=== PATIENT | male | born 1980 | race Caucasian/White ===

== ENCOUNTER 2022-01-12 09:30 | Emergency (ER) | payer OTHER, SELFPAY ==
[2022-01-12 09:31] VITALS: BP 165/95; PULSE 87; RESP 16; TEMP 36.6; O2SAT 97
--- NOTE | 2022-01-12 10:23 | ED.WOUNDLAC ---
HPI - Wound/Laceration General Chief Complaint: Wound/Laceration Stated Complaint: bleeding wound to abd, on blood thinner Time Seen by Provider: 01/12/22 10:15 History of Present Illness HPI narrative: 41-year-old male presents the emergency room for evaluation of a bleeding wound to his right lower abdomen. Patient states the bleeding has been present since he woke up this morning around 7:00. Denies any injury or trauma. Patient states that he is on Coumadin for history of atrial fibrillation. Related Data Home Medications Medication Instructions Recorded Confirmed acetaminophen 500 mg capsule 500 mg PO Q6H PRN 09/24/19 08/10/21 ketoconazole 2 % topical cream 1 applic topical DAILY PRN 09/24/19 08/10/21 mupirocin 2 % topical ointment 1 applic topical BID PRN 09/24/19 08/10/21 oxygen-air delivery systems ##1 09/24/19 08/10/21 Allergies Allergy/AdvReac Type Severity Reaction Status Date / Time No Known Allergies Allergy Verified 08/10/21 14:30 Review of Systems Review of Systems: CONSTITUTIONAL: Denies fever, chills, or sweats. EYES: Denies visual changes, redness, or discharge. ENT: Denies rhinorrhea, congestion, sore throat, or otalgia. CARDIOVASCULAR: Denies chest pain, palpitations, or edema. RESPIRATORY: Denies cough or dyspnea. GASTROINTESTINAL: Denies abdominal pain, nausea, vomiting, or diarrhea. GENITOURINARY: Denies dysuria or hematuria. SKIN: Reports bleeding skin tear to right lower abdomen MUSCULOSKELETAL: Denies back pain, joint pain, or myalgia. NEUROLOGIC: Denies headache, numbness, dizziness, or weakness. PSYCHIATRIC: Denies anxiety or depression. [facility] Family History Family History Mother Patient's mother is in good health Sibling Patient's sister is in good health Father Family history of cardiovascular disease Family history of chronic obstructive pulmonary disease Hypertension Social History Social History Alcohol intake: current Exam Narrative: GENERAL: Well-appearing, well-nourished, and in no acute distress. HEAD: Normocephalic, atraumatic. EYES: PERRLA and EOMI. CHEST: Clear to auscultation. No respiratory distress. No wheezes rales or rhonchi HEART: Regular rate and rhythm. No murmur heard. Normal peripheral pulses. ABDOMEN: Soft, nontender, nondistended, normal active bowel sounds. EXTREMITIES: Normal range of motion. No edema. SKIN: X2 bleeding skin tears on right lower abdomen NEURO: No focal deficits. Alert and oriented x3. PSYCH: Normal mood and affect. Course Course Emergency Course: Surgicel applied to bleeding wound, hemostasis was achieved with direct pressure. Vital Signs Vital signs: Vital Signs Temperature 36.6 C 01/12/22 09:31 Pulse Rate 87 01/12/22 09:31 Respiratory Rate 16 01/12/22 09:31 Blood Pressure 165/95 H 01/12/22 09:31 Pulse Oximetry 97 01/12/22 09:31 Oxygen Delivery Room Air 01/12/22 09:31 Temperature 36.6 C 01/12/22 09:31 Pulse Rate 87 01/12/22 09:31 Respiratory Rate 16 01/12/22 09:31 Blood Pressure 165/95 H 01/12/22 09:31 Pulse Oximetry 97 01/12/22 09:31 Oxygen Delivery Room Air 01/12/22 09:31 MDM - Wound/Laceration Lab Data Labs: Lab Results 01/12/22 Range/Units 10:57 PT 39.5 H (11.1-14.7) Seconds INR 4.2 Discharge Plan Discharge Clinical Impression: Avulsion of skin Patient Disposition: Home, Self-Care Condition: Stable Instructions: Antibiotic Form, Skin Avulsion (ED) Additional Instructions: Keep bandage in place for the next 3 days. Return to your primary care physician is a bleeding continues Prescriptions: No Action ketoconazole 2 % cream 1 applic TOPICAL DAILY PRN mupirocin 2 % ointment 1 applic TOPICAL BID PRN acetaminophen 500 mg capsule 500 mg PO Q6H PRN (DME) oxygen-air delivery systems Device
[2022-01-12] MEDS: CELLULOSE OXIDIZED 2 x 3 INCH 1 PKT XX (10:35)
[2022-01-12 11:19] LABS: INR 4.2; Prothrombin Time 39.5 Seconds (11.1-14.7)
[2022-01-12 11:37] VITALS: BP 134/78; PULSE 85; RESP 22; O2SAT 95
== END 2022-01-12 11:38 | disposition home or self-care (01) ==
PROVIDERS: Emergency Provider Nurse Practitioner Family; PCP Family Medicine
DX: L98.8 Other specified disorders of the skin and subcutaneous tissue (principal); I48.91 Unspecified atrial fibrillation; Z79.01 Long term (current) use of anticoagulants
CPT/HCPCS: 36415; 85610; 99283

== ENCOUNTER 2022-03-16 10:21 | Outpatient (CLI) | payer OTHER, SELFPAY ==
[2022-03-16 18:57] LABS: Basophils Absolute Auto 0.1 K/mm3 (0.0-0.1); Basophils Percent Auto 0.6 % (0.2-1.2); Eosinophils Absolute Auto 0.3 K/mm3 (0-0.3); Eosinophils Percent Auto 3.6 % (0-4.4); Hematocrit 33.4 % (42.0-52.0); Hemoglobin 10.4 g/dL (14.0-18.0); Immature Granulocyte Absolute 0.02 K/mm3 (0.00-0.031); Immature Granulocyte Percent A 0.2 % (0-0.5); Lymphocytes Absolute Auto 2.14 K/mm3 (0.9-3.2); Lymphocytes Percent Auto 25.1 % (18.3-44.2); Mean Corpuscular HGB Conc 31.1 g/dl (32-36); Mean Corpuscular Hemoglobin 27.8 pg (26-34); Mean Corpuscular Volume 89.3 fl (80-100); Mean Platelet Volume 11.6 fl (7.4-10.4); Monocytes Absolute Auto 0.6 K/mm3 (0.1-0.6); Monocytes Percent Auto 7.2 % (2.6-8.5); Neutrophils Absolute Auto 5.4 K/mm3 (1.3-6.7); Neutrophils Percent Auto 63.3 % (45.5-73.1); Platelet Count Result 140 k/mm3 (150-375); Red Blood Count 3.74 M/mm3 (4.6-6.20); Red Cell Distribution Width 14.2 % (11.5-14.5); White Blood Count 8.5 K/mm3 (4.5-10.0)
[2022-03-16 18:58] LABS: Alanine Aminotransferase 36 U/L (6-50); Albumin Level 3.4 g/dL (3.5-5.1); Alkaline Phosphatase 65 U/L (38-126); Anion Gap 8 mmol/L (8-16); Aspartate Amino Transferase 45 U/L (17-59); Bilirubin,Total 0.4 mg/dL (0.2-1.3); Blood Urea Nitrogen 38 mg/dL (9-20); Calcium 8.5 mg/dL (8.4-10.2); Carbon Dioxide 26 mmol/L (22-30); Chloride 106 mmol/L (98-107); Cholesterol 166 mg/dL (0-200); Estimated Glomerular Filt Rate 42; Glucose 126 mg/dL (65-110); HDL Direct 29 mg/dL; Potassium 4.1 mmol/L (3.4-5.0); Sodium 140 mmol/L (137-145); Triglycerides 113 mg/dL (<150)
[2022-03-16 19:02] LABS: LDL Cholesterol Direct 88 mg/dL
[2022-03-16 19:14] LABS: Digoxin 0.6 ng/mL (0.8-2.0)
[2022-03-16 19:23] LABS: Hemoglobin A1C 6.5 % (<5.7)
== END 2022-03-16 10:22 | disposition home or self-care (01) ==
LOC: ANHGOSHLAB 10:25
PROVIDERS: PCP Family Medicine; Visit Provider Physician Assistant
DX: E11.9 Type 2 diabetes mellitus without complications (principal); E66.01 Morbid (severe) obesity due to excess calories; E88.81 Metabolic syndrome and other insulin resistance; G47.33 Obstructive sleep apnea (adult) (pediatric); I10 Essential (primary) hypertension; I48.19 Other persistent atrial fibrillation; Z79.01 Long term (current) use of anticoagulants
CPT/HCPCS: 36415; 80053; 80061; 80162; 83036; 84443; 85025

== ENCOUNTER 2022-03-19 11:02 | Outpatient (CLI) | payer OTHER, SELFPAY ==
[2022-03-19 19:30] LABS: INR 4.9; Prothrombin Time 44.5 Seconds (11.1-14.7)
[2022-03-19 19:34] LABS: Appearance Urine Clear (Clear); Bilirubin Urine 1+ (Negative); Blood Urine 3+ (Negative); Glucose Urine UA Negative (Negative); Ketones Urine Negative (Negative); Leukocyte Esterase Ur Trace LEU/UL (Negative); Nitrate Urine Negative (Negative); Protein Urine 2+ mg/dL (Negative); Specific Grav Ur 1.015 (1.001-1.035); Urobilinogen Urine 0.2 mg/dL (<2.0)
[2022-03-19 19:38] LABS: Bacteria Urine Trace /hpf; RBC Urine >75 /hpf (0-2); Squamous Epithelial Cell Urine Rare /hpf (Few); WBC Urine 16-20 /hpf
[2022-03-19 19:45] LABS: Add Urine Microscopic? YES; Color Urine Light Red (Yellow)
== END 2022-03-19 11:03 | disposition home or self-care (01) ==
LOC: ANHGOSHLAB 11:04
PROVIDERS: PCP Family Medicine; Visit Provider Physician Assistant
DX: R31.9 Hematuria, unspecified (principal); I48.19 Other persistent atrial fibrillation
CPT/HCPCS: 36415; 81001; 85610; 87077; 87086; 87186

== ENCOUNTER 2022-03-25 10:27 | Outpatient (CLI) | payer OTHER, SELFPAY ==
[2022-03-25 19:43] LABS: INR 1.5; Prothrombin Time 17.9 Seconds (11.1-14.7)
== END 2022-03-25 10:28 | disposition home or self-care (01) ==
LOC: ANHGOSHLAB 10:28
PROVIDERS: PCP Family Medicine; Visit Provider Family Medicine
DX: Z79.01 Long term (current) use of anticoagulants (principal)
CPT/HCPCS: 36415; 85610

== ENCOUNTER 2022-04-01 12:15 | Outpatient (RCR) | payer OTHER, SELFPAY | END 2022-06-30 23:59 | disposition home or self-care (01) | LOC: ANHGOSHLAB 12:15 | PROVIDERS: PCP Family Medicine; Visit Provider Physician Assistant | DX: I48.19 Other persistent atrial fibrillation (principal); R31.9 Hematuria, unspecified | CPT/HCPCS: 36415; 85610 ==

== ENCOUNTER 2022-04-12 15:03 | Outpatient (RCR) | payer OTHER, SELFPAY ==
[2022-04-12 20:45] LABS: INR 4.4; Prothrombin Time 40.5 Seconds (11.1-14.7)
== END 2022-07-11 23:59 | disposition home or self-care (01) ==
LOC: ANHGOSHLAB 15:03
PROVIDERS: PCP Family Medicine; Visit Provider Physician Assistant
DX: Z51.81 Encounter for therapeutic drug level monitoring (principal); Z79.01 Long term (current) use of anticoagulants
CPT/HCPCS: 36415; 85610

== ENCOUNTER 2022-04-15 10:18 | Outpatient (CLI) | payer OTHER, SELFPAY ==
[2022-04-15 18:29] LABS: Add Urine Microscopic? YES; Appearance Urine Cloudy (Clear); Bilirubin Urine Negative (Negative); Blood Urine 3+ (Negative); Color Urine Red (Yellow); Glucose Urine UA Negative (Negative); Ketones Urine Negative (Negative); Leukocyte Esterase Ur Negative LEU/UL (Negative); Nitrate Urine Negative (Negative); Protein Urine 2+ mg/dL (Negative); Urobilinogen Urine 0.2 mg/dL (<2.0)
[2022-04-15 18:43] LABS: Bacteria Urine Trace /hpf; Mucus Urine Rare /lpf; RBC Urine >75 /hpf (0-2); Squamous Epithelial Cell Urine Occasional /hpf (Few)
== END 2022-04-15 10:19 | disposition home or self-care (01) ==
LOC: ANHGOSHLAB 10:19
PROVIDERS: PCP Family Medicine; Visit Provider Physician Assistant
DX: R31.9 Hematuria, unspecified (principal)
CPT/HCPCS: 81001; 87086; 87088

== ENCOUNTER 2022-04-22 11:07 | Outpatient (CLI) | payer OTHER, SELFPAY ==
[2022-04-22 19:28] LABS: INR 3.6; Prothrombin Time 35.1 Seconds (11.1-14.7)
== END 2022-04-22 11:08 | disposition home or self-care (01) ==
PROVIDERS: PCP Family Medicine; Visit Provider Physician Assistant
DX: Z79.01 Long term (current) use of anticoagulants (principal)
CPT/HCPCS: 36415; 85610

== ENCOUNTER 2022-05-04 13:55 | Outpatient (RCR) | payer OTHER, SELFPAY ==
[2022-05-04 19:14] LABS: INR 2.3; Prothrombin Time 24.2 Seconds (11.1-14.7)
== END 2022-08-02 23:59 | disposition home or self-care (01) ==
LOC: ANHGOSHLAB 13:55
PROVIDERS: PCP Family Medicine; Visit Provider Physician Assistant
DX: Z51.81 Encounter for therapeutic drug level monitoring (principal); Z79.01 Long term (current) use of anticoagulants
CPT/HCPCS: 36415; 85610

== ENCOUNTER 2022-06-25 11:31 | Outpatient (CLI) | payer OTHER, SELFPAY ==
[2022-06-25 19:06] LABS: Basophils Percent Auto 0.3 % (0.2-1.2); Eosinophils Absolute Auto 0.2 K/mm3 (0-0.3); Eosinophils Percent Auto 2.3 % (0-4.4); Hematocrit 32.4 % (42.0-52.0); Hemoglobin 9.8 g/dL (14.0-18.0); Immature Granulocyte Absolute 0.03 K/mm3 (0.00-0.031); Immature Granulocyte Percent A 0.3 % (0-0.5); Lymphocytes Percent Auto 17.7 % (18.3-44.2); Mean Corpuscular HGB Conc 30.2 g/dl (32-36); Mean Corpuscular Hemoglobin 27.7 pg (26-34); Mean Corpuscular Volume 91.5 fl (80-100); Mean Platelet Volume 11.6 fl (7.4-10.4); Monocytes Absolute Auto 0.7 K/mm3 (0.1-0.6); Monocytes Percent Auto 7.7 % (2.6-8.5); Neutrophils Absolute Auto 6.9 K/mm3 (1.3-6.7); Neutrophils Percent Auto 71.7 % (45.5-73.1); Platelet Count Result 176 k/mm3 (150-375); Red Blood Count 3.54 M/mm3 (4.6-6.20); Red Cell Distribution Width 14.1 % (11.5-14.5); White Blood Count 9.6 K/mm3 (4.5-10.0)
[2022-06-25 19:13] LABS: Iron 52 ug/dL (49-181)
[2022-06-25 19:20] LABS: Alanine Aminotransferase 24 U/L (6-50); Albumin Level 3.5 g/dL (3.5-5.1); Alkaline Phosphatase 77 U/L (38-126); Anion Gap 10 mmol/L (8-16); Aspartate Amino Transferase 58 U/L (17-59); Bilirubin,Total 0.4 mg/dL (0.2-1.3); Blood Urea Nitrogen 54 mg/dL (9-20); Calcium 8.4 mg/dL (8.4-10.2); Carbon Dioxide 22 mmol/L (22-30); Chloride 106 mmol/L (98-107); Cholesterol 180 mg/dL (0-200); Estimated Glomerular Filt Rate 30; Glucose 138 mg/dL (65-110); HDL Direct 29 mg/dL; Potassium 4.3 mmol/L (3.4-5.0); Sodium 138 mmol/L (137-145); Triglycerides 122 mg/dL (<150)
[2022-06-25 19:22] LABS: Hemoglobin A1C 6.3 % (<5.7); Percent Iron Saturation 14 % (20-50)
[2022-06-25 19:38] LABS: LDL Cholesterol Direct 100 mg/dL
== END 2022-06-25 11:32 | disposition home or self-care (01) ==
LOC: ANHGOSHLAB 11:32
PROVIDERS: PCP Family Medicine; Visit Provider Physician Assistant
DX: E11.9 Type 2 diabetes mellitus without complications (principal); D64.9 Anemia, unspecified; E88.81 Metabolic syndrome and other insulin resistance; G47.33 Obstructive sleep apnea (adult) (pediatric); I48.19 Other persistent atrial fibrillation
CPT/HCPCS: 36415; 80053; 80061; 82728; 83036; 83540; 83550; 84439; 84443; 85025

== ENCOUNTER 2022-06-28 11:12 | Outpatient (NON) | payer OTHER, SELFPAY ==
[2022-06-28 22:44] LABS: MALB Creatinine Ratio 925.3 mg/g (0-30); Microalbumin Urine Random 555.2 mg/L (0-16.7)
== END 2022-06-28 11:13 | disposition home or self-care (01) ==
LOC: ANHGOSHLAB 11:16
PROVIDERS: PCP Family Medicine; Visit Provider Physician Assistant
DX: R31.9 Hematuria, unspecified (principal)
CPT/HCPCS: 82043

== ENCOUNTER 2022-07-20 11:54 | Outpatient (CLI) | payer OTHER, SELFPAY ==
[2022-07-20 19:04] LABS: Basophils Percent Auto 0.3 % (0.2-1.2); Eosinophils Absolute Auto 0.2 K/mm3 (0-0.3); Eosinophils Percent Auto 2.4 % (0-4.4); Hematocrit 27.3 % (42.0-52.0); Immature Granulocyte Absolute 0.03 K/mm3 (0.00-0.031); Immature Granulocyte Percent A 0.3 % (0-0.5); Lymphocytes Absolute Auto 1.79 K/mm3 (0.9-3.2); Lymphocytes Percent Auto 19.2 % (18.3-44.2); Mean Corpuscular HGB Conc 29.3 g/dl (32-36); Mean Corpuscular Volume 92.2 fl (80-100); Monocytes Absolute Auto 0.6 K/mm3 (0.1-0.6); Monocytes Percent Auto 6.8 % (2.6-8.5); Neutrophils Absolute Auto 6.6 K/mm3 (1.3-6.7); Platelet Count Result 184 k/mm3 (150-375); Red Blood Count 2.96 M/mm3 (4.6-6.20); Red Cell Distribution Width 14.6 % (11.5-14.5); White Blood Count 9.3 K/mm3 (4.5-10.0)
[2022-07-20 21:36] LABS: Alanine Aminotransferase 29 U/L (6-50); Albumin Level 3.3 g/dL (3.5-5.1); Alkaline Phosphatase 63 U/L (38-126); Anion Gap 5 mmol/L (8-16); Aspartate Amino Transferase 36 U/L (17-59); Bilirubin,Total 0.5 mg/dL (0.2-1.3); Blood Urea Nitrogen 43 mg/dL (9-20); Calcium 8.5 mg/dL (8.4-10.2); Carbon Dioxide 24 mmol/L (22-30); Chloride 109 mmol/L (98-107); Estimated Glomerular Filt Rate 37; Glucose 135 mg/dL (65-110); Potassium 4.2 mmol/L (3.4-5.0); Sodium 138 mmol/L (137-145)
== END 2022-07-20 11:55 | disposition home or self-care (01) ==
LOC: ANHGOSHLAB 11:55
PROVIDERS: PCP Family Medicine; Visit Provider Physician Assistant
DX: R31.9 Hematuria, unspecified (principal); D64.9 Anemia, unspecified
CPT/HCPCS: 36415; 80053; 85025

== ENCOUNTER 2022-07-20 11:59 | Outpatient (RCR) | payer OTHER, SELFPAY ==
[2022-06-15 19:42] LABS: INR 2.5; Prothrombin Time 26.4 Seconds (11.1-14.7)
[2022-07-20 19:14] LABS: INR 1.4; Prothrombin Time 16.9 Seconds (11.1-14.7)
== END 2022-09-13 23:59 | disposition home or self-care (01) ==
LOC: ANHGOSHLAB 11:59
PROVIDERS: PCP Family Medicine; Visit Provider Physician Assistant
DX: Z51.81 Encounter for therapeutic drug level monitoring (principal); Z79.01 Long term (current) use of anticoagulants
CPT/HCPCS: 36415; 85610

== ENCOUNTER 2022-07-23 11:16 | Outpatient (NON) | payer OTHER, SELFPAY ==
[2022-07-23 22:12] LABS: IFOB Positive Control Positive; Immunochemical Fecal Occult Bl Negative (N)
== END 2022-07-23 11:17 | disposition home or self-care (01) ==
LOC: ANHGOSHLAB 11:17
PROVIDERS: PCP Family Medicine; Visit Provider Physician Assistant
DX: D64.9 Anemia, unspecified (principal); R31.9 Hematuria, unspecified
CPT/HCPCS: 82274

== ENCOUNTER 2022-07-28 16:04 | Outpatient (CLI) | payer OTHER, SELFPAY ==
[2022-07-28 18:21] LABS: INR 1.5; Prothrombin Time 17.2 Seconds (11.1-14.7)
[2022-07-28 18:47] LABS: Alanine Aminotransferase 40 U/L (6-50); Albumin Level 3.4 g/dL (3.5-5.1); Alkaline Phosphatase 73 U/L (38-126); Anion Gap 4 mmol/L (8-16); Aspartate Amino Transferase 54 U/L (17-59); Bilirubin,Total 0.4 mg/dL (0.2-1.3); Blood Urea Nitrogen 36 mg/dL (9-20); Calcium 8.1 mg/dL (8.4-10.2); Carbon Dioxide 22 mmol/L (22-30); Chloride 110 mmol/L (98-107); Estimated Glomerular Filt Rate 48; Glucose 142 mg/dL (65-110); Potassium 4.3 mmol/L (3.4-5.0); Sodium 136 mmol/L (137-145)
[2022-07-28 19:48] LABS: Basophils Percent Auto 0.4 % (0.2-1.2); Eosinophils Absolute Auto 0.2 K/mm3 (0-0.3); Eosinophils Percent Auto 2.8 % (0-4.4); Hematocrit 28.9 % (42.0-52.0); Hemoglobin 8.6 g/dL (14.0-18.0); Immature Granulocyte Absolute 0.02 K/mm3 (0.00-0.031); Immature Granulocyte Percent A 0.4 % (0-0.5); Lymphocytes Absolute Auto 1.19 K/mm3 (0.9-3.2); Lymphocytes Percent Auto 22.5 % (18.3-44.2); Mean Corpuscular HGB Conc 29.8 g/dl (32-36); Mean Corpuscular Volume 90.6 fl (80-100); Mean Platelet Volume 11.1 fl (7.4-10.4); Monocytes Absolute Auto 0.6 K/mm3 (0.1-0.6); Monocytes Percent Auto 11.9 % (2.6-8.5); Neutrophils Absolute Auto 3.3 K/mm3 (1.3-6.7); Platelet Count Result 180 k/mm3 (150-375); Red Blood Count 3.19 M/mm3 (4.6-6.20); Red Cell Distribution Width 14.6 % (11.5-14.5); White Blood Count 5.3 K/mm3 (4.5-10.0)
[2022-07-28 23:45] LABS: Anisocytosis 1+ (NORMAL); Burr Cells 1+ (NORMAL); Platelet Estimate Adequate (Adequate)
[2022-07-28 23:53] LABS: Schistocytes None Seen (NORMAL)
== END 2022-07-28 16:05 | disposition home or self-care (01) ==
LOC: ANHGOSHLAB 16:05
PROVIDERS: PCP Family Medicine; Visit Provider Clinical Nurse Specialist
DX: D64.9 Anemia, unspecified (principal); R31.9 Hematuria, unspecified; Z79.01 Long term (current) use of anticoagulants
CPT/HCPCS: 36415; 80053; 85025; 85610

== ENCOUNTER 2022-08-03 16:06 | Outpatient (CLI) | payer OTHER, SELFPAY ==
[2022-08-03 19:44] LABS: INR 2.2; Prothrombin Time 23.4 Seconds (11.1-14.7)
[2022-08-03 19:56] LABS: Iron 50 ug/dL (49-181)
[2022-08-03 20:08] LABS: Percent Iron Saturation 13 % (20-50)
[2022-08-03 20:21] LABS: Basophils Percent Auto 0.3 % (0.2-1.2); Eosinophils Absolute Auto 0.2 K/mm3 (0-0.3); Eosinophils Percent Auto 3.2 % (0-4.4); Hematocrit 29.2 % (42.0-52.0); Hemoglobin 8.8 g/dL (14.0-18.0); Immature Granulocyte Absolute 0.02 K/mm3 (0.00-0.031); Immature Granulocyte Percent A 0.3 % (0-0.5); Lymphocytes Absolute Auto 2.07 K/mm3 (0.9-3.2); Lymphocytes Percent Auto 27.3 % (18.3-44.2); Mean Corpuscular HGB Conc 30.1 g/dl (32-36); Mean Corpuscular Hemoglobin 26.9 pg (26-34); Mean Corpuscular Volume 89.3 fl (80-100); Mean Platelet Volume 11.1 fl (7.4-10.4); Monocytes Absolute Auto 0.7 K/mm3 (0.1-0.6); Monocytes Percent Auto 9.4 % (2.6-8.5); Neutrophils Absolute Auto 4.5 K/mm3 (1.3-6.7); Neutrophils Percent Auto 59.5 % (45.5-73.1); Platelet Count Result 222 k/mm3 (150-375); Red Blood Count 3.27 M/mm3 (4.6-6.20); Red Cell Distribution Width 14.3 % (11.5-14.5); White Blood Count 7.6 K/mm3 (4.5-10.0)
[2022-08-03 20:52] LABS: Alanine Aminotransferase 33 U/L (6-50); Albumin Level 3.2 g/dL (3.5-5.1); Alkaline Phosphatase 62 U/L (38-126); Anion Gap 4 mmol/L (8-16); Aspartate Amino Transferase 50 U/L (17-59); Bilirubin,Total 0.2 mg/dL (0.2-1.3); Blood Urea Nitrogen 38 mg/dL (9-20); Calcium 8.7 mg/dL (8.4-10.2); Carbon Dioxide 24 mmol/L (22-30); Chloride 108 mmol/L (98-107); Estimated Glomerular Filt Rate 52; Glucose 111 mg/dL (65-110); Sodium 136 mmol/L (137-145)
== END 2022-08-03 16:07 | disposition home or self-care (01) ==
LOC: ANHGOSHLAB 16:07
PROVIDERS: PCP Family Medicine; Visit Provider Clinical Nurse Specialist
DX: D64.9 Anemia, unspecified (principal); Z79.01 Long term (current) use of anticoagulants
CPT/HCPCS: 36415; 80053; 82728; 83540; 83550; 85025; 85610

== ENCOUNTER 2022-08-09 14:15 | Outpatient (CLI) | payer OTHER, SELFPAY ==
[2022-08-09 20:04] LABS: Anion Gap 5 mmol/L (8-16); Blood Urea Nitrogen 39 mg/dL (9-20); Calcium 8.5 mg/dL (8.4-10.2); Carbon Dioxide 26 mmol/L (22-30); Chloride 109 mmol/L (98-107); Estimated Glomerular Filt Rate 42; Glucose 115 mg/dL (65-110); Potassium 4.3 mmol/L (3.4-5.0); Sodium 140 mmol/L (137-145)
[2022-08-09 20:11] LABS: Basophils Percent Auto 0.4 % (0.2-1.2); Eosinophils Absolute Auto 0.2 K/mm3 (0-0.3); Eosinophils Percent Auto 2.5 % (0-4.4); Hematocrit 28.8 % (42.0-52.0); Hemoglobin 8.6 g/dL (14.0-18.0); Immature Granulocyte Absolute 0.03 K/mm3 (0.00-0.031); Immature Granulocyte Percent A 0.4 % (0-0.5); Lymphocytes Absolute Auto 1.48 K/mm3 (0.9-3.2); Lymphocytes Percent Auto 18.7 % (18.3-44.2); Mean Corpuscular HGB Conc 29.9 g/dl (32-36); Mean Corpuscular Hemoglobin 26.5 pg (26-34); Mean Corpuscular Volume 88.9 fl (80-100); Mean Platelet Volume 10.8 fl (7.4-10.4); Monocytes Absolute Auto 0.7 K/mm3 (0.1-0.6); Monocytes Percent Auto 8.4 % (2.6-8.5); Neutrophils Absolute Auto 5.5 K/mm3 (1.3-6.7); Neutrophils Percent Auto 69.6 % (45.5-73.1); Platelet Count Result 221 k/mm3 (150-375); Red Blood Count 3.24 M/mm3 (4.6-6.20); Red Cell Distribution Width 14.6 % (11.5-14.5); White Blood Count 7.9 K/mm3 (4.5-10.0)
[2022-08-09 20:18] LABS: INR 3.4; Prothrombin Time 33.1 Seconds (11.1-14.7)
[2022-08-09 22:00] LABS: Platelet Estimate Adequate (Adequate)
[2022-08-09 22:01] LABS: Anisocytosis 1+ (NORMAL); Hypochromasia 1+ (NORMAL); Schistocytes None Seen (NORMAL)
== END 2022-08-09 14:16 | disposition home or self-care (01) ==
LOC: ANHGOSHLAB 14:16
PROVIDERS: PCP Family Medicine; Visit Provider Clinical Nurse Specialist
DX: I48.19 Other persistent atrial fibrillation (principal); E11.9 Type 2 diabetes mellitus without complications; I10 Essential (primary) hypertension
CPT/HCPCS: 36415; 80048; 85025; 85610

== ENCOUNTER 2022-08-27 11:55 | Outpatient (CLI) | payer OTHER, SELFPAY ==
[2022-08-27 19:24] LABS: Add Urine Microscopic? YES; Appearance Urine Clear (Clear); Bilirubin Urine Negative (Negative); Blood Urine 3+ (Negative); Glucose Urine UA Negative (Negative); Ketones Urine Negative (Negative); Leukocyte Esterase Ur Negative LEU/UL (NEGATIVE); Nitrate Urine Negative (Negative); Protein Urine 2+ mg/dL (Negative); Urobilinogen Urine 0.2 mg/dL (<2.0); pH Urine 5.5 (5.0-9.0)
[2022-08-27 19:44] LABS: Bacteria Urine Trace /hpf; Budding Yeast Urine Present /hpf; Mucus Urine Rare /lpf; RBC Urine >75 /hpf (0-2); Squamous Epithelial Cell Urine Occasional /hpf (Few)
[2022-08-27 19:50] LABS: Color Urine Red (Yellow); Prothrombin Time 37.7 Seconds (11.1-14.7)
[2022-08-27 20:00] LABS: Anion Gap 5 mmol/L (8-16); Blood Urea Nitrogen 53 mg/dL (9-20); Calcium 8.4 mg/dL (8.4-10.2); Carbon Dioxide 25 mmol/L (22-30); Chloride 106 mmol/L (98-107); Estimated Glomerular Filt Rate 29; Glucose 128 mg/dL (65-110); Potassium 4.1 mmol/L (3.4-5.0); Sodium 136 mmol/L (137-145)
== END 2022-08-27 11:56 | disposition home or self-care (01) ==
LOC: ANHGOSHLAB 11:56
PROVIDERS: PCP Family Medicine; Visit Provider Family Medicine
DX: R31.9 Hematuria, unspecified (principal); R79.89 Other specified abnormal findings of blood chemistry
CPT/HCPCS: 36415; 80048; 81001; 85610

== ENCOUNTER 2022-09-02 14:54 | Outpatient (CLI) | payer OTHER, SELFPAY ==
[2022-09-02 19:09] LABS: Anion Gap 9 mmol/L (8-16); Blood Urea Nitrogen 47 mg/dL (9-20); Calcium 8.6 mg/dL (8.4-10.2); Carbon Dioxide 24 mmol/L (22-30); Chloride 108 mmol/L (98-107); Estimated Glomerular Filt Rate 27; Glucose 160 mg/dL (65-110); Potassium 4.5 mmol/L (3.4-5.0); Sodium 141 mmol/L (137-145)
[2022-09-02 20:05] LABS: Basophils Percent Auto 0.4 % (0.2-1.2); Eosinophils Absolute Auto 0.3 K/mm3 (0-0.3); Eosinophils Percent Auto 2.5 % (0-4.4); Immature Granulocyte Absolute 0.04 K/mm3 (0.00-0.031); Immature Granulocyte Percent A 0.4 % (0-0.5); Lymphocytes Absolute Auto 1.22 K/mm3 (0.9-3.2); Mean Corpuscular HGB Conc 29.6 g/dl (32-36); Mean Corpuscular Hemoglobin 26.3 pg (26-34); Mean Corpuscular Volume 88.8 fl (80-100); Mean Platelet Volume 10.9 fl (7.4-10.4); Monocytes Absolute Auto 0.7 K/mm3 (0.1-0.6); Monocytes Percent Auto 6.8 % (2.6-8.5); Neutrophils Absolute Auto 7.9 K/mm3 (1.3-6.7); Neutrophils Percent Auto 77.9 % (45.5-73.1); Platelet Count Result 217 k/mm3 (150-375); Red Blood Count 3.04 M/mm3 (4.6-6.20); Red Cell Distribution Width 15.7 % (11.5-14.5); White Blood Count 10.1 K/mm3 (4.5-10.0)
[2022-09-02 20:59] LABS: Platelet Estimate Adequate (Adequate)
[2022-09-02 21:00] LABS: Hypochromasia 1+ (NORMAL)
[2022-09-02 21:01] LABS: Anisocytosis 1+ (NORMAL); Macrocytosis 1+ (NORMAL); Microcytosis 1+ (NORMAL); Schistocytes None Seen (NORMAL); Spherocytes 1+ (NORMAL)
== END 2022-09-02 14:55 | disposition home or self-care (01) ==
LOC: ANHGOSHLAB 14:56
PROVIDERS: PCP Family Medicine; Visit Provider Family Medicine
DX: R79.89 Other specified abnormal findings of blood chemistry (principal); D64.9 Anemia, unspecified
CPT/HCPCS: 36415; 80048; 85025

== ENCOUNTER 2022-11-08 12:55 | Outpatient (CLI) | payer OTHER, SELFPAY ==
[2022-11-08 19:15] LABS: Basophils Percent Auto 0.5 % (0.2-1.2); Eosinophils Absolute Auto 0.3 K/mm3 (0-0.3); Eosinophils Percent Auto 3.7 % (0-4.4); Hematocrit 30.6 % (42.0-52.0); Immature Granulocyte Absolute 0.03 K/mm3 (0.00-0.031); Immature Granulocyte Percent A 0.4 % (0-0.5); Lymphocytes Absolute Auto 1.44 K/mm3 (0.9-3.2); Lymphocytes Percent Auto 16.8 % (18.3-44.2); Mean Corpuscular HGB Conc 29.4 g/dl (32-36); Mean Corpuscular Hemoglobin 26.6 pg (26-34); Mean Corpuscular Volume 90.5 fl (80-100); Mean Platelet Volume 10.5 fl (7.4-10.4); Monocytes Absolute Auto 0.6 K/mm3 (0.1-0.6); Monocytes Percent Auto 6.9 % (2.6-8.5); Neutrophils Absolute Auto 6.2 K/mm3 (1.3-6.7); Neutrophils Percent Auto 71.7 % (45.5-73.1); Platelet Count Result 210 k/mm3 (150-375); Red Blood Count 3.38 M/mm3 (4.6-6.20); Red Cell Distribution Width 15.9 % (11.5-14.5); White Blood Count 8.6 K/mm3 (4.5-10.0)
[2022-11-08 20:36] LABS: Alanine Aminotransferase 23 U/L (6-50); Albumin Level 3.7 g/dL (3.5-5.1); Alkaline Phosphatase 79 U/L (38-126); Anion Gap 5 mmol/L (8-16); Aspartate Amino Transferase 30 U/L (17-59); Bilirubin,Total 0.5 mg/dL (0.2-1.3); Blood Urea Nitrogen 39 mg/dL (9-20); Calcium 9.1 mg/dL (8.4-10.2); Carbon Dioxide 30 mmol/L (22-30); Chloride 107 mmol/L (98-107); Estimated Glomerular Filt Rate 44; Glucose 124 mg/dL (65-110); Potassium 4.3 mmol/L (3.4-5.0); Sodium 142 mmol/L (137-145)
[2022-11-08 21:05] LABS: Platelet Estimate Adequate (Adequate)
[2022-11-08 21:06] LABS: Anisocytosis 2+ (NORMAL); Hypochromasia 1+ (NORMAL); Schistocytes None Seen (NORMAL)
== END 2022-11-08 12:56 | disposition home or self-care (01) ==
LOC: ANHGOSHLAB 12:57
PROVIDERS: PCP Family Medicine; Visit Provider Family Medicine
DX: N17.9 Acute kidney failure, unspecified (principal); N18.9 Chronic kidney disease, unspecified; D64.9 Anemia, unspecified
CPT/HCPCS: 36415; 80053; 85025

== ENCOUNTER 2022-11-19 13:29 | Outpatient (CLI) | payer OTHER, SELFPAY ==
[2022-11-19 18:40] LABS: INR 1.1; Prothrombin Time 14.6 Seconds (11.1-14.7)
== END 2022-11-19 13:30 | disposition home or self-care (01) ==
LOC: ANHGOSHLAB 13:30
PROVIDERS: PCP Family Medicine; Visit Provider Family Medicine
DX: Z79.01 Long term (current) use of anticoagulants (principal)
CPT/HCPCS: 36415; 85610

== ENCOUNTER 2022-12-01 14:05 | Outpatient (CLI) | payer OTHER, SELFPAY ==
[2022-12-01 19:26] LABS: INR 1.5; Prothrombin Time 18.7 Seconds (11.1-14.7)
[2022-12-01 20:49] LABS: Digoxin < 0.5 ng/mL (0.8-2.0)
== END 2022-12-01 14:06 | disposition home or self-care (01) ==
LOC: ANHGOSHLAB 14:07
PROVIDERS: PCP Family Medicine; Visit Provider Family Medicine
DX: I48.91 Unspecified atrial fibrillation (principal); Z79.01 Long term (current) use of anticoagulants
CPT/HCPCS: 36415; 80162; 85610

== ENCOUNTER 2023-01-10 14:23 | Outpatient (CLI) | payer OTHER, SELFPAY ==
--- NOTE | ~2023-01-10 | US_ITS ---
US renal BI 01/10/2023 15:09 Procedure: Realtime transabdominal ultrasound of the kidneys and bladder. Indication: Chronic kidney disease Comparison: No prior studies for comparison. Findings: Renal echotexture is normal bilaterally without hydronephrosis, contour deforming mass or r enal calculus. There is right renal cyst measuring 1.7 cm. The right kidney measures 11.5 cm and left kidney measures 11.9 cm. Bladder within normal limits. Impression: 1: Right renal cyst measuring 1.7 cm. Reviewed, dictated and finalized at location [] Impression: 1: Right renal cyst measuring 1.7 cm.
== END 2023-01-10 14:24 | disposition home or self-care (01) ==
PROVIDERS: PCP Family Medicine; Visit Provider Internal Medicine Nephrology
DX: E11.9 Type 2 diabetes mellitus without complications (principal); R31.0 Gross hematuria; I12.9 Hypertensive chronic kidney disease with stage 1 through stage 4 chronic kidney disease, or unspecified chronic kidney disease; N18.32 Chronic kidney disease, stage 3b; N28.1 Cyst of kidney, acquired
CPT/HCPCS: 76775

== ENCOUNTER 2023-01-14 08:34 | Outpatient (CLI) | payer OTHER, SELFPAY ==
--- NOTE | 2023-01-14 08:43 | ECHO_ITS ---
Patient Info Name: Dionisio Contreras Age: 42 years : 1980 Gender: Male Ht: 72 in Wt: 690 lbs BSA: 4.21 m2 HR: 93 bpm BP: 185 / 88 mmHg Technical Quality: Poor Exam Date: 01/14/2023 8:58 AM Exam Location: [facility] Patient Status: Outpatient Admit Date: 01/14/2023 Staff Ordering Physician: Clay Avalos DO Horticultural Specialty Grower Inside: Marcelina Morin RDCS Attending Provider: Clay Avalos DO Referring Physician: Robbie AZAR; Exam Type: CA echo doppler color flow Study Info Complete two-dimensional, color flow and Doppler transthoracic echocardiogram is performed. Summary 1. Complete two-dimensional, color flow and Doppler transthoracic echocardiogram is performed. 2. Technically suboptimal study due to poor sonographic images. 3. Left ventricular chamber dimension is severely enlarged. 4. Left ventricular systolic function is moderately reduced, estimated at 40-45%. 5. There is mild concentric increased left ventricular wall thickness. 6. The left ventricular diastolic function is abnormal. 7. E/e' 16 is elevated. 8. Atrial fibrillation. 9. Left atrial chamber dimension is severely enlarged. 10. Right atrial chamber dimension is severely enlarged. 11. There is trace mitral valve regurgitation. Left Ventricle Technically suboptimal study due to poor sonographic images. E/e' 16 is elevated. Atrial fibrillation. Left ventricular chamber dimension is severely enlarged. Left ventricular systolic function is moderately reduced, estimated at 40-45%. There is mild concentric increased left ventricular wall thickness. The left ventricular diastolic function is abnormal. Right Ventricle Right ventricular systolic function is normal based on normal TAPSE 2.6 cm. Right ventricular chamber dimension is not well visualized. Left Atria Left atrial chamber dimension is severely enlarged. Right Atria Right atrial chamber dimension is severely enlarged. Aortic Valve The aortic valve is probable trileaflet. There is no aortic valve stenosis. There is no aortic valve regurgitation. Pulmonic Valve There is no pulmonic regurgitation. Mitral Valve There is no mitral valve stenosis. There is trace mitral valve regurgitation. Tricuspid Valve There is no tricuspid valve regurgitation. Pericardium/Pleural There is no pericardial effusion. Inferior Vena Cava Normal inferior vena cava with >50% collapse upon inspiration consistent with normal right atrial pressure, 5 mmHg. Aorta The aortic root size at the sinus of Valsalva is normal. Left Ventricular Outflow Tract Name Value Normal LVOT 2D LVOT Diameter 2.8 cm LVOT Doppler LVOT Peak Gradient 4 mmHg LVOT Mean Gradient 2 mmHg LVOT VTI 23 cm LVOT VTI/AV VTI Ratio 0.8 LVOT Stroke Volume 148 ml LVOT CO 13.9 l/min LVOT CI 3.3 l/min/m2 Pulmonic Valve Name Value Normal
== END 2023-01-14 08:35 | disposition home or self-care (01) ==
LOC: ANHCARD 08:35
PROVIDERS: PCP Family Medicine; Visit Provider Internal Medicine Cardiovascular Disease
DX: I48.91 Unspecified atrial fibrillation (principal); R93.1 Abnormal findings on diagnostic imaging of heart and coronary circulation
CPT/HCPCS: 93306

== ENCOUNTER 2023-01-17 11:06 | Outpatient (CLI) | payer OTHER, SELFPAY ==
[2023-01-17 15:50] LABS: Bacteria Urine None Seen /hpf; Non Pathogenic Casts 0-2; RBC Urine >100 /hpf (0-2); Squamous Epithelial Cell Urine None seen /hpf (Few)
[2023-01-17 15:56] LABS: Creatinine Urine 41.2 mg/dL; Total Protein Urine Random 145 mg/dL; Ur Ttl Prot Creatinine Ratio 3.52 mg/mg (0-0.20)
[2023-01-17 15:58] LABS: Sodium Urine Random 54 meq/L
[2023-01-17 16:20] LABS: Appearance Urine Slightly Cloudy (Clear); Bilirubin Urine Negative (Negative); Blood Urine 3+ (Negative); Color Urine Red (Yellow); Glucose Urine UA Negative (Negative); Ketones Urine Negative (Negative); Leukocyte Esterase Ur Negative LEU/UL (Negative); Nitrate Urine Negative (Negative); Protein Urine 2+ mg/dL (Negative); Specific Grav Ur 1.015 (1.001-1.035); Urobilinogen Urine 0.2 mg/dL (<2.0)
[2023-01-17 16:23] LABS: Add Urine Microscopic? YES
[2023-01-17 17:52] LABS: Albumin Level 3.4 g/dL (3.5-5.1); Anion Gap 8 mmol/L (8-16); Blood Urea Nitrogen 56 mg/dL (9-20); Calcium 8.5 mg/dL (8.4-10.2); Carbon Dioxide 26 mmol/L (22-30); Chloride 106 mmol/L (98-107); Estimated Glomerular Filt Rate 22; Glucose 119 mg/dL (65-110); Phosphorus 4.7 mg/dL (2.5-4.5); Potassium 3.8 mmol/L (3.4-5.0); Sodium 140 mmol/L (137-145)
[2023-01-17 18:31] LABS: Complement C3 110 mg/dL (88-165)
[2023-01-19 14:34] LABS: Albumin 2.8 g/dL (3.8-4.8); Alpha 1 Globulin 0.3 g/dL (0.2-0.3); Alpha 2 Globulin 0.9 g/dL (0.5-0.9); Beta 1 Globulin 0.5 g/dL (0.4-0.6); Gamma Globulin 1.4 g/dL (0.8-1.7); Protein, Total 6.5 g/dL (6.1-8.1)
[2023-01-20 13:36] LABS: Anti Glomerular Basement Memb <1.0 AI (<1.0)
[2023-01-21 14:00] LABS: Creatinine, Random Urine 43 mg/dL (20-320); Total Protein/Creatinine Ratio 2744 mg/g creat (25-148)
[2023-01-23 20:51] LABS: ANCA Screen Negative (Negative)
== END 2023-01-17 11:07 | disposition home or self-care (01) ==
LOC: ANHGOSHLAB 11:07
PROVIDERS: PCP Family Medicine; Visit Provider Internal Medicine Nephrology
DX: E11.9 Type 2 diabetes mellitus without complications (principal); I12.9 Hypertensive chronic kidney disease with stage 1 through stage 4 chronic kidney disease, or unspecified chronic kidney disease; N18.32 Chronic kidney disease, stage 3b; R31.0 Gross hematuria
CPT/HCPCS: 36415; 80069; 81001; 82570; 83520; 84155; 84156; 84165; 84166; 84300; 85610; 86036; 86038; 86160; 86225; 87086; 87088

== ENCOUNTER 2023-02-02 14:21 | Emergency (ER) | payer OTHER, SELFPAY ==
[2023-02-02 14:18] VITALS: BP 112/59; PULSE 78; RESP 20; O2SAT 98
[2023-02-02 14:29] VITALS: PULSE 82
--- NOTE | 2023-02-02 14:32 | ECG_ITS ---
Measurements Intervals [place] Rate: 81 P: CT: 0 QRS: 4 QRSD: 113 T: 16 QT: 363 QTc: 421 Interpretive Statements ATRIAL FIBRILLATION INTRAVENTRICULAR CONDUCTION DELAY CONSIDER INFERIOR INFARCT, AGE INDETERMINATE ABNORMAL ECG NO PREVIOUS ECG AVAILABLE FOR COMPARISON Electronically Signed On 02-02-2023 14:57:48 CDT by Clay Avalos D.O.
--- NOTE | 2023-02-02 14:35 | ED.DIZZY ---
HPI - Dizziness General Chief Complaint: Syncope Stated Complaint: syncope Time Seen by Provider: 02/02/23 14:22 History of Present Illness HPI Narrative: 42-year-old male with history of hypertension, A-fib that is on Coumadin presents to the emergency department for evaluation after having a syncopal episode. Patient was recently started on Entresto and has been having intermittent episodes of low blood pressure. Patient did have follow-up with his physician yesterday and was told to stop the Entresto. Patient did not take the Entresto yesterday or today. While patient was at his dentist office prior to arrival he did have a syncopal episode and did fall to the ground and struck his head. Patient does report a headache. Patient denies any other pain or injury and denies any numbness or weakness. Related Data Home Medications Medication Instructions Recorded Confirmed acetaminophen 500 mg capsule 500 mg PO Q6H PRN 09/24/19 02/01/23 oxygen-air delivery systems ##1 09/24/19 02/01/23 cholecalciferol (vitamin D3) 125 125 mcg PO DAILY 08/11/22 02/01/23 mcg (5,000 unit) capsule ferrous sulfate 325 mg (65 mg 325 mg PO DAILY 08/11/22 02/01/23 iron) tablet mecobalamin (vitamin B12) 1,000 1,000 mcg PO DAILY 08/11/22 02/01/23 mcg lozenges Allergies Allergy/AdvReac Type Severity Reaction Status Date / Time No Known Allergies Allergy Verified 02/01/23 14:17 Review of Systems Review of Systems: All systems reviewed & are unremarkable except as noted in HPI and below PMFSH Past Medical History Medical History Anemia Atrial fibrillation Class 3 severe obesity due to excess calories with body mass index (BMI) greater than or equal to 70 in adult Diabetes mellitus Essential (primary) hypertension Hematuria Morbid (severe) obesity due to excess calories Obstructive sleep apnea (adult) (pediatric) Surgical History Surgical History History of cystoscopy Family History Family History Mother Patient's mother is in good health Sibling Patient's sister is in good health Father Family history of cardiovascular disease Family history of chronic obstructive pulmonary disease Hypertension Social History Social History (Updated 02/01/23 @ 14:28 by Marie Nash MA) Smoking status: Never smoker Alcohol intake: current Lack of Transportation: No Lack of Food: Sometimes True Current Housing: I Have Housing Concerned About Future Housing: No Difficulty Paying Gas/Electric Bills: No Difficulty Paying for Meds: No Currently Unemployed: YES Education: Bachelor's Degree Difficulty w/ Childcare or Family Care: No Gender identity (if verbalized by the patient): Male Exam Narrative: APPEARANCE: Well appearing, no pain, no distress, well-nourished. HEAD: normocephalic, atraumatic. EYES: PERRLA/EOMI, conjunctivae clear. NOSE: Normal no drainage NECK: Supple. No adenopathy, no masses. RESPIRATORY: Airway patent, respirations nonlabored. Clear to auscultation bilaterally, no rales, rhonchi, wheezing. CARDIOVASCULAR: Regular rate and rhythm without murmurs rubs or gallops. ABDOMINAL: Soft, nontender, nondistended, normal bowel sounds MUSCULOSKELETAL: Moves all extremities. Strength/ROM intact, No edema, No calf tenderness. NEURO: Alert. Cranial nerves II through XII intact. Grossly intact SKIN: Warm, dry. Normal Color Course Course Emergency Course: 42-year-old male presented the ED for evaluation for syncopal episode. Patient did strike his head and had loss of consciousness. Patient does take Coumadin due to A-fib. Patient's body weight is approximately 690 pounds. Body weight is too high for our CT scan. Called and discussed the case with Renae and they also state the patient's body weight is too high. I called S
[2023-02-02] MEDS: SODIUM CHLORIDE 0.9% IV 1,000 ML 999 ML IV CONT (14:39)
[2023-02-02 14:56] LABS: Basophils Percent Auto 0.2 % (0.2-1.2); Eosinophils Absolute Auto 0.3 K/mm3 (0-0.3); Eosinophils Percent Auto 3.3 % (0-4.4); Hematocrit 29.3 % (42.0-52.0); Hemoglobin 8.9 g/dL (14.0-18.0); Immature Granulocyte Absolute 0.03 K/mm3 (0.00-0.031); Immature Granulocyte Percent A 0.4 % (0-0.5); Lymphocytes Percent Auto 14.2 % (18.3-44.2); Mean Corpuscular HGB Conc 30.4 g/dl (32-36); Mean Corpuscular Hemoglobin 26.3 pg (26-34); Mean Corpuscular Volume 86.7 fl (80-100); Mean Platelet Volume 11.7 fl (7.4-10.4); Monocytes Absolute Auto 0.6 K/mm3 (0.1-0.6); Neutrophils Absolute Auto 6.3 K/mm3 (1.3-6.7); Neutrophils Percent Auto 74.9 % (45.5-73.1); Platelet Count Result 165 k/mm3 (150-375); Red Blood Count 3.38 M/mm3 (4.6-6.20); Red Cell Distribution Width 17.2 % (11.5-14.5); White Blood Count 8.5 K/mm3 (4.5-10.0)
[2023-02-02 15:07] LABS: Alanine Aminotransferase 24 U/L (6-50); Albumin Level 3.7 g/dL (3.5-5.1); Alkaline Phosphatase 66 U/L (38-126); Anion Gap 12 mmol/L (8-16); Aspartate Amino Transferase 30 U/L (17-59); Bilirubin,Total 0.5 mg/dL (0.2-1.3); Blood Urea Nitrogen 91 mg/dL (9-20); Calcium 8.6 mg/dL (8.4-10.2); Carbon Dioxide 18 mmol/L (22-30); Chloride 112 mmol/L (98-107); Estimated CRCL calculation 54 ml/min; Estimated Glomerular Filt Rate 17; Glucose 140 mg/dL (65-110); Potassium 4.9 mmol/L (3.4-5.0); Sodium 142 mmol/L (137-145)
[2023-02-02 16:00] VITALS: BP 109/63; PULSE 85; RESP 16; O2SAT 98
[2023-02-02 17:00] VITALS: BP 133/81; PULSE 80; RESP 16; O2SAT 98
== END 2023-02-02 18:30 | disposition home or self-care (01) ==
PROVIDERS: Emergency Provider Emergency Medicine; PCP Family Medicine
DX: R55 Syncope and collapse (principal); I48.91 Unspecified atrial fibrillation; I10 Essential (primary) hypertension; E11.9 Type 2 diabetes mellitus without complications; Z79.01 Long term (current) use of anticoagulants
CPT/HCPCS: 36415; 80053; 85025; 93005; 96360; 96361; 99284; J7030

== ENCOUNTER 2023-02-08 15:19 | Outpatient (CLI) | payer OTHER, SELFPAY ==
[2023-02-08 20:30] LABS: Basophils Absolute Auto 0.1 K/mm3 (0.0-0.1); Basophils Percent Auto 0.5 % (0.2-1.2); Eosinophils Absolute Auto 0.5 K/mm3 (0-0.3); Eosinophils Percent Auto 4.6 % (0-4.4); Hematocrit 30.1 % (42.0-52.0); Hemoglobin 8.9 g/dL (14.0-18.0); Immature Granulocyte Absolute 0.03 K/mm3 (0.00-0.031); Immature Granulocyte Percent A 0.3 % (0-0.5); Lymphocytes Absolute Auto 1.78 K/mm3 (0.9-3.2); Lymphocytes Percent Auto 18.1 % (18.3-44.2); Mean Corpuscular HGB Conc 29.6 g/dl (32-36); Mean Corpuscular Hemoglobin 25.8 pg (26-34); Mean Corpuscular Volume 87.2 fl (80-100); Mean Platelet Volume 11.5 fl (7.4-10.4); Monocytes Absolute Auto 0.8 K/mm3 (0.1-0.6); Monocytes Percent Auto 7.6 % (2.6-8.5); Neutrophils Absolute Auto 6.8 K/mm3 (1.3-6.7); Neutrophils Percent Auto 68.9 % (45.5-73.1); Platelet Count Result 212 k/mm3 (150-375); Red Blood Count 3.45 M/mm3 (4.6-6.20); Red Cell Distribution Width 16.8 % (11.5-14.5); White Blood Count 9.8 K/mm3 (4.5-10.0)
[2023-02-08 20:55] LABS: Alanine Aminotransferase 26 U/L (6-50); Albumin Level 3.7 g/dL (3.5-5.1); Alkaline Phosphatase 71 U/L (38-126); Anion Gap 15 mmol/L (8-16); Aspartate Amino Transferase 38 U/L (17-59); Bilirubin,Total 0.4 mg/dL (0.2-1.3); Blood Urea Nitrogen 67 mg/dL (9-20); Calcium 8.9 mg/dL (8.4-10.2); Carbon Dioxide 22 mmol/L (22-30); Chloride 105 mmol/L (98-107); Estimated Glomerular Filt Rate 18; Glucose 170 mg/dL (65-110); Potassium 4.5 mmol/L (3.4-5.0); Sodium 142 mmol/L (137-145)
== END 2023-02-08 15:20 | disposition home or self-care (01) ==
LOC: ANHGOSHLAB 15:21
PROVIDERS: PCP Family Medicine; Visit Provider Clinical Nurse Specialist
DX: N18.32 Chronic kidney disease, stage 3b (principal)
CPT/HCPCS: 36415; 80053; 85025

== ENCOUNTER 2023-03-09 15:25 | Outpatient (RCR) | payer OTHER, SELFPAY ==
[2022-12-13 18:48] LABS: INR 1.7; Prothrombin Time 20.9 Seconds (11.1-14.7)
[2022-12-31 18:48] LABS: INR 2.5; Prothrombin Time 28.8 Seconds (11.1-14.7)
[2023-01-17 16:07] LABS: INR 3.1; Prothrombin Time 34.7 Seconds (11.1-14.7)
[2023-01-18 07:05] LABS: INR 3.1; Prothrombin Time 34.7 Seconds (11.1-14.7)
[2023-03-09 18:42] LABS: INR 2.9; Prothrombin Time 32.7 Seconds (11.1-14.7)
== END 2023-03-13 23:59 | disposition home or self-care (01) ==
LOC: ANHGOSHLAB 15:25
PROVIDERS: PCP Family Medicine; Visit Provider Family Medicine
DX: Z51.81 Encounter for therapeutic drug level monitoring (principal); Z79.01 Long term (current) use of anticoagulants
CPT/HCPCS: 36415; 85610

== ENCOUNTER 2023-03-09 15:28 | Outpatient (CLI) | payer OTHER, SELFPAY ==
[2023-03-09 21:06] LABS: Albumin Level 3.9 g/dL (3.5-5.1); Anion Gap 10 mmol/L (8-16); Blood Urea Nitrogen 61 mg/dL (9-20); Carbon Dioxide 25 mmol/L (22-30); Chloride 107 mmol/L (98-107); Estimated Glomerular Filt Rate 27; Glucose 126 mg/dL (65-110); Phosphorus 4.7 mg/dL (2.5-4.5); Potassium 4.4 mmol/L (3.4-5.0); Sodium 142 mmol/L (137-145)
== END 2023-03-09 15:29 | disposition home or self-care (01) ==
LOC: ANHGOSHLAB 15:29
PROVIDERS: PCP Family Medicine; Visit Provider Internal Medicine Nephrology
DX: N17.9 Acute kidney failure, unspecified (principal); N18.32 Chronic kidney disease, stage 3b
CPT/HCPCS: 36415; 80069; 85610

== ENCOUNTER 2023-05-04 14:06 | Outpatient (CLI) | payer OTHER, SELFPAY ==
[2023-05-04 19:33] LABS: Albumin Level 3.7 g/dL (3.5-5.1); Anion Gap 8 mmol/L (8-16); Blood Urea Nitrogen 50 mg/dL (9-20); Calcium 9.1 mg/dL (8.4-10.2); Carbon Dioxide 25 mmol/L (22-30); Chloride 109 mmol/L (98-107); Estimated Glomerular Filt Rate 30; Glucose 119 mg/dL (65-110); Phosphorus 4.6 mg/dL (2.5-4.5); Potassium 3.9 mmol/L (3.4-5.0); Sodium 142 mmol/L (137-145)
[2023-05-04 20:37] LABS: Creatinine Urine 48.3 mg/dL; Total Protein Urine Random 109 mg/dL; Ur Ttl Prot Creatinine Ratio 2.26 mg/mg (0-0.20)
== END 2023-05-04 14:07 | disposition home or self-care (01) ==
PROVIDERS: PCP Family Medicine; Visit Provider Internal Medicine Nephrology
DX: N17.9 Acute kidney failure, unspecified (principal); N18.32 Chronic kidney disease, stage 3b; R76.9 Abnormal immunological finding in serum, unspecified
CPT/HCPCS: 36415; 80069; 82570; 84156; 85610; 86334; 86335

== ENCOUNTER 2023-07-06 11:34 | Outpatient (CLI) | payer OTHER, SELFPAY ==
[2023-07-06 12:55] LABS: Anion Gap 8 mmol/L (8-16); Blood Urea Nitrogen 55 mg/dL (9-20); Calcium 9.2 mg/dL (8.4-10.2); Carbon Dioxide 26 mmol/L (22-30); Chloride 109 mmol/L (98-107); Estimated Glomerular Filt Rate 35; Glucose 97 mg/dL (65-110); Potassium 4.3 mmol/L (3.4-5.0); Sodium 143 mmol/L (137-145)
== END 2023-07-06 11:35 | disposition home or self-care (01) ==
LOC: ANHGOSHLAB 11:35
PROVIDERS: PCP Family Medicine; Visit Provider Family Medicine
DX: N17.9 Acute kidney failure, unspecified (principal); N18.9 Chronic kidney disease, unspecified
CPT/HCPCS: 36415; 80048

== ENCOUNTER 2023-08-02 11:44 | Outpatient (RCR) | payer OTHER, SELFPAY ==
[2023-05-04 18:32] LABS: INR 2.3; Prothrombin Time 26.6 Seconds (11.1-14.7)
[2023-07-06 12:45] LABS: INR 1.9
== END 2023-08-02 23:59 | disposition home or self-care (01) ==
LOC: ANHGOSHLAB 11:44
PROVIDERS: PCP Family Medicine; Visit Provider Physician Assistant
DX: Z51.81 Encounter for therapeutic drug level monitoring (principal); Z79.01 Long term (current) use of anticoagulants
CPT/HCPCS: 36415; 80048; 85610

== ENCOUNTER 2023-08-02 11:47 | Outpatient (CLI) | payer OTHER, SELFPAY ==
[2023-08-02 19:17] LABS: Albumin Level 3.4 g/dL (3.5-5.1); Anion Gap 7 mmol/L (8-16); Blood Urea Nitrogen 57 mg/dL (9-20); Carbon Dioxide 28 mmol/L (22-30); Chloride 108 mmol/L (98-107); Estimated Glomerular Filt Rate 39; Glucose 89 mg/dL (65-110); Phosphorus 4.3 mg/dL (2.5-4.5); Potassium 3.9 mmol/L (3.4-5.0); Sodium 143 mmol/L (137-145)
[2023-08-02 19:30] LABS: Parathyroid Intact 163.2 pg/mL (7.5-53.5)
[2023-08-02 20:28] LABS: Vitamin D 25 Hydroxy 39.8 ng/mL
[2023-08-02 20:37] LABS: Creatinine Urine 55.5 mg/dL; Total Protein Urine Random 56 mg/dL; Ur Ttl Prot Creatinine Ratio 1.01 mg/mg (0-0.20)
== END 2023-08-02 11:48 | disposition home or self-care (01) ==
LOC: ANHGOSHLAB 11:50
PROVIDERS: PCP Family Medicine; Visit Provider Internal Medicine Nephrology
DX: E55.9 Vitamin D deficiency, unspecified (principal); N25.81 Secondary hyperparathyroidism of renal origin; N18.32 Chronic kidney disease, stage 3b
CPT/HCPCS: 36415; 80069; 82306; 82570; 83970; 84156; 85610

== ENCOUNTER 2023-08-24 13:49 | Outpatient (CLI) | payer OTHER, SELFPAY ==
[2023-08-24 18:46] LABS: Basophils Absolute Auto 0.1 K/mm3 (0.0-0.1); Basophils Percent Auto 0.8 % (0.2-1.2); Eosinophils Absolute Auto 0.3 K/mm3 (0-0.3); Eosinophils Percent Auto 4.1 % (0-4.4); Hematocrit 34.5 % (42.0-52.0); Hemoglobin 9.9 g/dL (14.0-18.0); Immature Granulocyte Absolute 0.02 K/mm3 (0.00-0.031); Immature Granulocyte Percent A 0.3 % (0-0.5); Lymphocytes Absolute Auto 1.38 K/mm3 (0.9-3.2); Lymphocytes Percent Auto 21.1 % (18.3-44.2); Mean Corpuscular HGB Conc 28.7 g/dl (32-36); Mean Corpuscular Hemoglobin 25.9 pg (26-34); Mean Corpuscular Volume 90.3 fl (80-100); Mean Platelet Volume 11.5 fl (7.4-10.4); Monocytes Absolute Auto 0.4 K/mm3 (0.1-0.6); Monocytes Percent Auto 6.3 % (2.6-8.5); Neutrophils Absolute Auto 4.4 K/mm3 (1.3-6.7); Neutrophils Percent Auto 67.4 % (45.5-73.1); Platelet Count Result 148 k/mm3 (150-375); Red Blood Count 3.82 M/mm3 (4.6-6.20); Red Cell Distribution Width 15.3 % (11.5-14.5); White Blood Count 6.5 K/mm3 (4.5-10.0)
[2023-08-24 19:11] LABS: Anisocytosis 1+ (NORMAL); Hypochromasia 1+ (NORMAL); Schistocytes None Seen (NORMAL)
[2023-08-24 19:46] LABS: LDL Cholesterol Direct 82 mg/dL
[2023-08-24 20:22] LABS: Free T4 Free Thyroxine 1.29 ng/mL (0.78-2.19)
[2023-08-24 20:42] LABS: Albumin Level 3.6 g/dL (3.5-5.1); Anion Gap 8 mmol/L (8-16); Blood Urea Nitrogen 54 mg/dL (9-20); Calcium 9.2 mg/dL (8.4-10.2); Carbon Dioxide 26 mmol/L (22-30); Chloride 108 mmol/L (98-107); Cholesterol 141 mg/dL (0-200); Estimated Glomerular Filt Rate 42; Glucose 114 mg/dL (65-110); HDL Direct 34 mg/dL; Sodium 142 mmol/L (137-145); Triglycerides 75 mg/dL (<150)
[2023-08-24 20:50] LABS: Hemoglobin A1C 5.3 % (<5.7)
== END 2023-08-24 13:50 | disposition home or self-care (01) ==
PROVIDERS: PCP Family Medicine; Visit Provider Family Medicine
DX: I12.9 Hypertensive chronic kidney disease with stage 1 through stage 4 chronic kidney disease, or unspecified chronic kidney disease (principal); N18.32 Chronic kidney disease, stage 3b; E11.9 Type 2 diabetes mellitus without complications
CPT/HCPCS: 36415; 80061; 80069; 83036; 84439; 84443; 85025; 85610

== ENCOUNTER 2023-08-25 15:07 | Outpatient (NON) | payer OTHER, SELFPAY ==
[2023-08-25 19:10] LABS: Creatinine Urine 36.7 mg/dL; Total Protein Urine Random 61 mg/dL; Ur Ttl Prot Creatinine Ratio 1.66 mg/mg (0-0.20)
[2023-08-25 19:59] LABS: Microalbumin Urine Random 203.7 mg/L (0-16.7)
== END 2023-08-25 15:08 | disposition home or self-care (01) ==
LOC: ANHGOSHLAB 15:10
PROVIDERS: PCP Family Medicine; Visit Provider Family Medicine
DX: I12.9 Hypertensive chronic kidney disease with stage 1 through stage 4 chronic kidney disease, or unspecified chronic kidney disease (principal); N18.32 Chronic kidney disease, stage 3b; E11.9 Type 2 diabetes mellitus without complications
CPT/HCPCS: 82043; 82570; 84156

== ENCOUNTER 2023-10-28 11:33 | Outpatient (RCR) | payer OTHER, SELFPAY ==
[2023-08-24 18:48] LABS: INR 1.2; Prothrombin Time 16.2 Seconds (11.1-14.7)
[2023-10-28 13:40] LABS: INR 1.8; Prothrombin Time 22.5 Seconds (11.1-14.7)
== END 2023-11-22 23:59 | disposition home or self-care (01) ==
LOC: ANHGOSHLAB 11:33
PROVIDERS: PCP Family Medicine; Visit Provider Family Medicine
DX: Z51.81 Encounter for therapeutic drug level monitoring (principal); Z79.01 Long term (current) use of anticoagulants
CPT/HCPCS: 36415; 85610

== ENCOUNTER 2023-10-28 11:35 | Outpatient (CLI) | payer OTHER, SELFPAY ==
[2023-10-28 14:26] LABS: Total Protein Urine Random 60 mg/dL
[2023-10-28 15:37] LABS: Creatinine Urine 64.4 mg/dL; Ur Ttl Prot Creatinine Ratio 0.93 mg/mg (0-0.20)
[2023-10-28 17:52] LABS: Albumin Level 3.9 g/dL (3.5-5.1); Anion Gap 8 mmol/L (4-12); Blood Urea Nitrogen 49 mg/dL (9-20); Calcium 9.5 mg/dL (8.4-10.2); Carbon Dioxide 25 mmol/L (22-30); Chloride 108 mmol/L (98-107); Estimated Glomerular Filt Rate 41; Glucose 110 mg/dL (65-110); Potassium 3.8 mmol/L (3.4-5.0); Sodium 141 mmol/L (137-145)
== END 2023-10-28 11:36 | disposition home or self-care (01) ==
LOC: ANHGOSHLAB 11:36
PROVIDERS: PCP Family Medicine; Visit Provider Internal Medicine Nephrology
DX: N18.32 Chronic kidney disease, stage 3b (principal)
CPT/HCPCS: 36415; 80069; 82570; 84156; 85610

== ENCOUNTER 2023-12-02 00:31 | Inpatient (IN) | payer OTHER, SELFPAY ==
[2023-12-02] VITALS (28 sets, daily range): BP systolic 103–137; BP diastolic 49–74; PULSE 79–180; RESP 20–37; TEMP 36.8–39.5; O2SAT 93–100
--- NOTE | 2023-12-02 | ECHO_ITS ---
Patient Info Name: Dionisio Contreras Age: 43 years : 1980 Gender: Male Ht: 72 in Wt: 662 lbs BSA: 4.11 m2 HR: 111 bpm BP: 127 / 57 mmHg Heart Rhythm: Indeterminant Technical Quality: Poor Exam Date: 12/02/2023 2:12 PM Exam Location: [facility] Patient Status: Outpatient Admit Date: 12/02/2023 Staff Ordering Physician: Clay Avalos DO Magazine Writer: Alka Anthony RDCS Attending Provider: Joy Wade MD Referring Physician: Robbie AZAR; Exam Type: CA echo doppler color flow Study Info Indications - CHF Complete two-dimensional, color flow and Doppler transthoracic echocardiogram is performed with contrast to opacify the left ventricle and to improve the deliniation of the left ventricle endocardial borders. Reason for Poor Study: poor echocardiographic windows Summary 1. Technically suboptimal stud due to poor sonographic images. 2. Definity contrast administered improved wall motion interpretation. 3. Left ventricular chamber dimension is moderately enlarged. 4. Left ventricular systolic function is normal, estimated at 55-60%. 5. The left ventricular diastolic function is abnormal. 6. E/e' 19 is elevated. 7. Left atrial chamber dimension is moderately enlarged. 8. Right atrial chamber dimension is moderately enlarged. 9. No pulmonary hypertension, estimated pulmonary arterial systolic pressure is 17 mmHg. Left Ventricle Technically suboptimal stud due to poor sonographic images. Definity contrast administered improved wall motion interpretation. E/e' 19 is elevated. Left ventricular chamber dimension is moderately enlarged. Left ventricular systolic function is normal, estimated at 55-60%. The left ventricular diastolic function is abnormal. Right Ventricle Right ventricular systolic function is normal and with normal TAPSE 3.1 cm. Right ventricular chamber dimension is normal. Left Atria Left atrial chamber dimension is moderately enlarged. Right Atria Right atrial chamber dimension is moderately enlarged. Aortic Valve The aortic valve is not well visualized. Cannot determine number of aortic valve leaflets. There is no aortic valve stenosis. There is no aortic valve regurgitation. Pulmonic Valve There is no pulmonic regurgitation. Mitral Valve There is no mitral valve stenosis. There is no mitral valve regurgitation. Tricuspid Valve There is no tricuspid valve regurgitation. No pulmonary hypertension, estimated pulmonary arterial systolic pressure is 17 mmHg. Pericardium/Pleural There is no pericardial effusion. Inferior Vena Cava Inferior vena cava is not well visualized. Aorta The aortic root size at the sinus of Valsalva is normal. Left Ventricular Outflow Tract Name Value Normal LVOT 2D LVOT Diameter 2.4 cm LVOT Doppler LVOT Peak Gradient 5 mmHg LVOT Mean Gradient 3 mmHg LVOT VTI 21 cm LVOT VTI/AV VTI Ratio 0.8 LVOT Stroke Volume 94 ml LVOT CO 11.2 l/min LVOT CI 2.7 l/min/m2 Pulmonic Valve
--- NOTE | ~2023-12-02 | US_ITS ---
EXAMINATION: US renal BI DATE: 12/02/2023 15:25 INDICATION: Hematuria. TECHNIQUE: Multiple ultrasound grayscale images of the kidneys were obtained. COMPARISON: Ultrasound 01/10/2023 FINDINGS: Sensitivity is decreased by obesity. The right kidney measures 16.2 x 6.4 x 8.1 cm. The left kidney m easures 15.3 x 7.1 x 6.5 cm. The kidneys demonstrate normal parenchymal echogenicity. There is no hyd ronephrosis. The bladder is normal. IMPRESSION: 1. Normal kidneys. No hydronephrosis. Reviewed, dictated and finalized at location A.
--- NOTE | ~2023-12-02 | XR_ITS ---
Portable chest x-ray Comparison: 12/02/2013 Clinical History: Dizziness Findings: There is central congestive change and probable minimal interstitial edema. Cardiomediast inal silhouette is stable. Bones and soft tissues are unremarkable. Impression: Central congestive change and probable minimal interstitial edema. Cardiomegaly. Reviewed, dictated and finalized at location . Impression: Central congestive change and probable minimal interstitial edema. Cardiomegaly.
--- NOTE | 2023-12-02 00:33 | ECG_ITS ---
SEE SCANNED COPY FOR CONFIRMED REPORT MTDD
--- NOTE | 2023-12-02 01:12 | ED.DIZZY ---
HPI - Dizziness General Chief Complaint: Dizziness Stated Complaint: DIZZY Time Seen by Provider: 12/02/23 00:57 Source: patient Mode of arrival: EMS Limitations: no limitations History of Present Illness HPI Narrative: 43-year-old male presenting because a feeling lightheaded upon standing today. Typically is only happening when he stands up and walks around. Also feels slightly more short of breath when he walks around than usual. Feels like he has the flu. Describes lightheadedness like he is going to pass out. No vision changes. No nausea or vomiting. No headache. All other symptoms and complaints are negative as per ROS. Related Data Home Medications Medication Instructions Recorded Confirmed acetaminophen 500 mg capsule 500 mg PO Q6H PRN 09/24/19 11/07/23 oxygen-air delivery systems ##1 09/24/19 11/07/23 cholecalciferol (vitamin D3) 125 125 mcg PO DAILY 08/11/22 11/07/23 mcg (5,000 unit) capsule ferrous sulfate 325 mg (65 mg 325 mg PO DAILY 08/11/22 11/07/23 iron) tablet mecobalamin (vitamin B12) 1,000 1,000 mcg PO DAILY 08/11/22 11/07/23 mcg lozenges Allergies Allergy/AdvReac Type Severity Reaction Status Date / Time No Known Allergies Allergy Verified 12/02/23 01:04 Review of Systems Review of Systems: All systems reviewed & are unremarkable except as noted in HPI and below PMFSH Past Medical History Medical History Anemia Atrial fibrillation Class 3 severe obesity due to excess calories with body mass index (BMI) greater than or equal to 70 in adult Diabetes mellitus Essential (primary) hypertension Hematuria Morbid (severe) obesity due to excess calories Obstructive sleep apnea (adult) (pediatric) Surgical History Surgical History H/O skin graft History of cystoscopy Family History Family History Mother Patient's mother is in good health Heart disease Afib Sibling Patient's sister is in good health Father Family history of cardiovascular disease Family history of chronic obstructive pulmonary disease Hypertension MRSA infection Social History Social History Smoking status: Never smoker Second hand tobacco smoke exposure: Yes Alcohol intake: current Substance use: never Substance use type: does not use Do You Feel Safe in your Home?: Yes Lack of Transportation: No Lack of Food: Never True Current Housing: I Have Housing Concerned About Future Housing: No Difficulty Paying Gas/Electric Bills: No Difficulty Paying for Meds: No Currently Unemployed: YES Education: Bachelor's Degree Difficulty w/ Childcare or Family Care: No Living arrangements: with family Occupation/Education: other 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 Eyes: Pupils equal, round, and reactive to light. Neck: Supple, no tracheal deviation, no JVD. ENMT: Mucous membranes moist Cardiovascular: S1, S2 auscultated. No murmurs, rubs, or gallops. No S3/S4. Normal Distal pulses. No peripheral edema. Respiratory: Lung sounds equal. No wheezes, rales, or rhonchi. Gastrointestinal: Abdomen was soft and non-tender. Non-distended. No rebound or guarding. Morbidly obese Genitourinary: Deferred Musculoskeletal: Normal muscle tone and bulk. No obvious deformities or tenderness over extremities. Skin: No rashes. Neurological: Strength 5/5 in extremities. Cranial nerves I-XII grossly intact. Distal sensation intact. Mental Status: Awake, alert and oriented x3. Follows commands Course Vital Signs Vital signs: Vital Signs Temperature 36.8 C 05/
[2023-12-02 01:15] LABS: Basophils Percent Auto 0.2 % (0.2-1.2); Hematocrit 34.4 % (42.0-52.0); Hemoglobin 10.8 g/dL (14.0-18.0); Immature Granulocyte Absolute 0.07 K/mm3 (0.00-0.031); Immature Granulocyte Percent A 0.5 % (0-0.5); Lymphocytes Absolute Auto 0.33 K/mm3 (0.9-3.2); Lymphocytes Percent Auto 2.6 % (18.3-44.2); Mean Corpuscular HGB Conc 31.4 g/dl (32-36); Mean Corpuscular Hemoglobin 28.1 pg (26-34); Mean Corpuscular Volume 89.4 fl (80-100); Monocytes Absolute Auto 0.7 K/mm3 (0.1-0.6); Monocytes Percent Auto 5.4 % (2.6-8.5); Neutrophils Absolute Auto 11.7 K/mm3 (1.3-6.7); Neutrophils Percent Auto 91.3 % (45.5-73.1); Platelet Count Result 120 k/mm3 (150-375); Red Blood Count 3.85 M/mm3 (4.6-6.20); Red Cell Distribution Width 15.4 % (11.5-14.5); White Blood Count 12.8 K/mm3 (4.5-10.0)
[2023-12-02] MEDS: SODIUM CHLORIDE 0.9% IV 1,000 ML 999 ML IV CONT (01:22)
[2023-12-02 01:25] LABS: Alanine Aminotransferase 18 U/L (6-50); Albumin Level 3.8 g/dL (3.5-5.1); Alkaline Phosphatase 62 U/L (38-126); Anion Gap 7 mmol/L (4-12); Aspartate Amino Transferase 28 U/L (17-59); Bilirubin,Total 0.9 mg/dL (0.2-1.3); Blood Urea Nitrogen 44 mg/dL (9-20); Calcium 9.3 mg/dL (8.4-10.2); Carbon Dioxide 23 mmol/L (22-30); Chloride 111 mmol/L (98-107); Estimated CRCL calculation 85 ml/min; Estimated Glomerular Filt Rate 30; Glucose 146 mg/dL (65-110); Potassium 4.1 mmol/L (3.4-5.0); Sodium 141 mmol/L (137-145)
[2023-12-02 01:34] LABS: D Dimer 0.62 ug/mL (<0.48)
[2023-12-02 01:44] LABS: NT Pro B Type Natriuretic Pept 9150 pg/mL (19.9-100)
[2023-12-02 02:01] LABS: Influenza A QL RT-PCR Negative (Negative); Influenza B QL RT-PCR Negative (Negative); RSV RNA, RT-PCR Negative (Negative); SARS-CoV-2 RNA PCR Negative (Negative)
[2023-12-02] MEDS: FUROSEMIDE INJ 40 MG/4 ML VIAL IV PUSH (02:52)
--- NOTE | 2023-12-02 03:33 | PC.NURSE ---
apartment maintenance supervisor advised to hold pt in ER until finding a bed that is able to accommodate the weight of the pt.
[2023-12-02 05:21] LABS: Troponin I 0.056 ng/mL (0.000-0.034)
--- NOTE | 2023-12-02 07:34 | ECG_ITS ---
SEE SCANNED COPY FOR CONFIRMED REPORT MTDD
[2023-12-02 08:06] LABS: Troponin I 0.064 ng/mL (0.000-0.034)
--- NOTE | 2023-12-02 08:41 | PM.IMHP ---
H&P: HPI History of Present Illness Date/Time: 12/02/23 08:41 Chief Complaint: lightheaded Narrative: 43 yr old man with history os atrial fibrillation since 2004, hypertension, dilated cardiomyopathy, systolic heart failure EF 40-45% on echocardiogram DM, MARTÍNEZ on CPAP morbid obesity panic disorder, presented ED with a chief complaint of lightheaded. Patient has intermittent lightheadedness when patient stands up and walk. Patient has nausea and vomited once, denies abdomen pain, diarrhea. Patient also has dysuria yesterday. patient has some shortness breath, worse with exertion. patient denies cough. patient denies headache, vision change, focal weakness. patient was brought to ED for evaluation treatment. upon arrival in the ED, patient was found have tachycardia, tachypnea, pulse ox 98 on room air , blood pressure on the lower side 109/58 patient has leukocytosis 12,800, hemoglobin 10.8, elevated BUN creatinine new 44/2.4. upon arrival in IMU, patient was found have fever, patient has bloody urine. Review of Systems Review of Systems: ROS negative except above PMFSH Past Medical History Medical History (Updated 12/02/23 @ 12:31 by Clay Avalos DO) Anemia Atrial fibrillation Class 3 severe obesity due to excess calories with body mass index (BMI) greater than or equal to 70 in adult Dehydration Diabetes mellitus Essential (primary) hypertension Hematuria Morbid (severe) obesity due to excess calories Obstructive sleep apnea (adult) (pediatric) Surgical History Surgical History H/O skin graft History of cystoscopy Family History Family History Mother Patient's mother is in good health Heart disease Afib Sibling Patient's sister is in good health Father Family history of cardiovascular disease Family history of chronic obstructive pulmonary disease Hypertension MRSA infection Social History Social History Smoking status: Never smoker Second hand tobacco smoke exposure: Yes Alcohol intake: current Substance use: never Substance use type: does not use Do You Feel Safe in your Home?: Yes Lack of Transportation: No Lack of Food: Never True Current Housing: I Have Housing Concerned About Future Housing: No Difficulty Paying Gas/Electric Bills: No Difficulty Paying for Meds: No Currently Unemployed: YES Education: Bachelor's Degree Difficulty w/ Childcare or Family Care: No Living arrangements: with family Occupation/Education: other 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 Gender identity (if verbalized by the patient): Male Meds Home Medications and Allergies Home Medications Medication Instructions Recorded Confirmed Type acetaminophen 500 mg capsule 500 mg PO Q6H PRN 09/24/19 11/07/23 History oxygen-air delivery systems ##1 09/24/19 11/07/23 History cholecalciferol (vitamin D3) 125 125 mcg PO DAILY 08/11/22 11/07/23 History mcg (5,000 unit) capsule ferrous sulfate 325 mg (65 mg 325 mg PO DAILY 08/11/22 11/07/23 History iron) tablet mecobalamin (vitamin B12) 1,000 1,000 mcg PO DAILY 08/11/22 11/07/23 History mcg lozenges CPAP Equipment #1 ea 12/11/22 11/07/23 Rx citalopram 40 mg tablet See Rx Instructions .Route 12/13/22 11/07/23 Rx .COMPLEX #90 tabs warfarin 4 mg tablet 4 mg PO DAILY #90 tabs 07/08/23 11/07/23 Rx warfarin 2 mg tablet 3 mg PO DAILY #135 tabs 08/01/23 11/07/23 Rx carvedilol 25 mg tablet 25 mg PO BID #180 tabs 09/07/23 11/07/23 Rx losartan 25 mg tablet See Rx Instructions .Route 10/24/23 11/07/23 Rx .COMPLEX #90 tabs Allergies Allergy/AdvReac Type Severity Reaction Status Date / Time No Known Allergies Allergy Verified 12/02/23 01:04 Vital Signs Vital Signs - 24 hr 12/02/23 00:36 12/02/23
[2023-12-02] MEDS: CEFEPIME 2 GM/NS 50 ML 2 GM/50 ML BAG IVPB ×2 (12:17→21:20)
[2023-12-02] MEDS: SODIUM CHLORIDE 0.9% IV 1,000 ML 125 ML IV CONT ×2 (12:17→21:19)
--- NOTE | 2023-12-02 12:27 | PM.CNCAR ---
Assessment and Plan Assessment and plan (1) Orthostatic lightheadedness: Code(s): R42 - Dizziness and giddiness Status: Acute Assessment and Plan: IVF being given now. (2) Dilated cardiomyopathy: Code(s): I42.0 - Dilated cardiomyopathy Status: Acute Assessment and Plan: Mild systolic dysfunction. Obtain echo. (3) PAF (paroxysmal atrial fibrillation): Code(s): I48.0 - Paroxysmal atrial fibrillation Status: Acute Assessment and Plan: In Sinus rhythm now. On Coreg for rate control when in atrial fib. On Warfarin and INR monitored by his PCP. (4) Morbid (severe) obesity due to excess calories: Code(s): E66.01 - Morbid (severe) obesity due to excess calories Status: Acute (5) Sepsis: Code(s): A41.9 - Sepsis, unspecified organism Status: Acute Assessment and Plan: With fever/chills, elevated WBC. IVF being given as Lasix was given in ER thinking it was CHF initially. On antibiotics. Managed by hospitalist. History of Present Illness History of Present Illness Consult date/time: 12/02/23 12:27 Reason For Visit: CHF Narrative: 42 yr old man who is my regular cardiology patient and a patient of Maribel Meredith presents to ER for lightheadedness. He has a history of atrial fibrillation since 2004, hypertension, dilated cardiomyopathy, DM, MARTÍNEZ on CPAP (followed by PCP), obesity, panic disorder. States he noted at home having fever, chills, sob and lightheadedness upon standing. Denies chest pain, orthopnea, PND, edema, palpitations. Previously, reports he is limited at walking half a block due to [place]. He has not noted anymore blood in his urine since Aug 2022.? Cardiovascular Procedures Echo/MUGA:: 01/14/23 Echo: EF 40-45%, severe LVE, mild LVH, diastolic dysfunction (E/e' 16), severe biatrial enlargement, trace MR. Electrophysiology:: 02/02/23 EKG: Atrial fibrillation at 81 bpm IVCD, consider inferior infarct, age indeterminate. 09/03/22 EKG: Atrial fibrillation at 79 bpm, consider inferior infarct, age indeterminate. Review of Systems Review of Systems: All systems reviewed & are unremarkable except as noted in HPI and below Constitutional: Constitutional: Reports as per HPI, Reports chills, Reports fatigue and Reports fever(s) Cardiovascular: Cardiovascular: Reports as per HPI, Denies chest pain and Denies irregular heart rhythm Respiratory: Respiratory: Reports as per HPI and Reports dyspnea Gastrointestinal: Gastrointestinal: Reports as per HPI and Denies abdominal pain Genitourinary: Genitourinary: Reports as per HPI and Denies dysuria Musculoskeletal: Musculoskeletal: Reports as per HPI Neurologic: Reports as per HPI, Reports dizziness and Denies syncope [facility] Past Medical History Medical History (Updated 12/02/23 @ 12:31 by Clay Avalos DO) Anemia Atrial fibrillation Class 3 severe obesity due to excess calories with body mass index (BMI) greater than or equal to 70 in adult Dehydration Diabetes mellitus Essential (primary) hypertension Hematuria Morbid (severe) obesity due to excess calories Obstructive sleep apnea (adult) (pediatric) Surgical History Surgical History H/O skin graft History of cystoscopy Family History Family History Mother Patient's mother is in good health Heart disease Afib Sibling Patient's sister is in good health Father Family history of cardiovascular disease Family history of chronic obstructive pulmonary disease Hypertension MRSA infection Social History Social History Smoking status: Never smoker Second hand tobacco smoke exposure: Yes Alcohol intake: current Substance use: never Substance use type: does not use Do You Feel Safe in your Home?: Yes Lack of Transportation: No Lack of Food: Ne
[2023-12-02 13:12] LABS: INR 1.8; Prothrombin Time 21.9 Seconds (11.1-14.7)
--- NOTE | 2023-12-02 14:31 | WPDURCON ---
Assessment and Plan Assessment and plan (1) Gross hematuria: Code(s): R31.0 - Gross hematuria Status: Acute Assessment and Plan: Noted to have gross hematuria on arrival. He is voiding spontaneously therefore no need for garcía catheter at this time. Will obtain renal bladder ultrasound to ensure no clots in the bladder and no evidence of retention or hydronephrosis. CT unable to be completed due to size. Given recurrence of gross hematuria, he will require repeat cystoscopy; will need to follow up with his primary urologist. Urology Consult Note HPI Date Seen: 12/02/23 Requesting Physician: Joy Wade MD Primary Care Provider: Sonia Stack DO Consult Narrative Narrative: Dionisio Contreras is a 43 year old male with a history of morbid obesity, atrial fibrillation on warfarin, diabetes mellitus who is currently admitted for dizziness. He is being seen in consultation for gross hematuria. On arrival to the ER, he was tachycardic and febrile (Tmax 103.1), WBC mildly elevated to 12.8, hemoglobin 10.8 which is improved from baseline, and creatinine 2.4 which is not far from his baseline. Urinalysis was not obtained. Attempts by nursing staff to place garcía catheter was unsuccessful. He is voiding spontaneously. He denies straining to void. There is no clinical concern for urinary retention. Bladder scan not able to be obtained due to body habitus. He denies dysuria or any recent prior episodes of hematuria. He does report a history of hemorrhagic cystitis and has been seen by [facility] in the past for evaluation of this. He had negative cystoscopy in 06/2022. He is a never smoker. Review of Systems Review of Systems: All systems reviewed & are unremarkable except as noted in HPI and below [facility] Past Medical History Medical History (Updated 12/02/23 @ 12:31 by Clay Avalos DO) Anemia Atrial fibrillation Class 3 severe obesity due to excess calories with body mass index (BMI) greater than or equal to 70 in adult Dehydration Diabetes mellitus Essential (primary) hypertension Hematuria Morbid (severe) obesity due to excess calories Obstructive sleep apnea (adult) (pediatric) Surgical History Surgical History H/O skin graft History of cystoscopy Family History Family History Mother Patient's mother is in good health Heart disease Afib Sibling Patient's sister is in good health Father Family history of cardiovascular disease Family history of chronic obstructive pulmonary disease Hypertension MRSA infection Social History Social History Smoking status: Never smoker Second hand tobacco smoke exposure: Yes Alcohol intake: current Substance use: never Substance use type: does not use Do You Feel Safe in your Home?: Yes Lack of Transportation: No Lack of Food: Never True Current Housing: I Have Housing Concerned About Future Housing: No Difficulty Paying Gas/Electric Bills: No Difficulty Paying for Meds: No Currently Unemployed: YES Education: Bachelor's Degree Difficulty w/ Childcare or Family Care: No Living arrangements: with family Occupation/Education: other 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
[2023-12-02] MEDS: PERFLUTREN LIPID MICROSPHERES 1.5 ML VIAL DILUTED TO 10 ML TOTAL VOLUME IV PUSH (14:35)
--- NOTE | 2023-12-02 14:51 | IVDEFINITY ---
Prior to administration of IV Definity the patient was educated on the risks and benefits of the imaging enhancing agent including potential adverse side effects. The patient verbalized understanding. Allergies were verified. No exclusion criteria were identified and at least one of the following inclusion criteria were met: 1) physician request, 2) patient technically difficult to image (per the [place] [employer] guidelines of two or more segments not discernable within the apical view), or 3) questionable left ventricular function. ?
--- NOTE | 2023-12-02 16:08 | ECG_ITS ---
SEE SCANNED COPY FOR CONFIRMED REPORT MTDD
[2023-12-02 17:33] LABS: Hematocrit 30.9 % (42.0-52.0); Hemoglobin 9.8 g/dL (14.0-18.0)
[2023-12-02] MEDS: VANCOMYCIN 1,250 MG/NS 250 ML 1,250 MG/250 ML BAG 166.67 MG IVPB ×2 (18:32→21:15)
[2023-12-02] MEDS: WATER FOR IRRIGATION, STERILE 1,000 ML BOTTLE 1000 ML (22:10)
--- NOTE | 2023-12-02 22:31 | PC.NURSE ---
Patient's tele leads were placed on patient's back (vs. front) due to difficulty obtaining a good reading due to patient's anatomy and that the patient prefers to sleep on his abdomen or side. Continuing to have difficulty getting consistent and clear readings as patient is restless and rolls around the bed. Patient has been educated 3x by the RN between [id number] about the importance of obtaining good reading on his tele leads and that the patient needs to try to stay on his side/abdomen - and offer was made that if patient wants to lay on his back to notify the staff so the leads can be moved to the front.
[2023-12-02] MEDS: ONDANSETRON INJ 4 MG/2 ML VIAL IV PUSH (23:04)
[2023-12-03] VITALS (18 sets, daily range): BP systolic 96–118; BP diastolic 49–66; PULSE 56–102; RESP 20–24; TEMP 36.3–37.6; O2SAT 91–100
[2023-12-03 04:51] LABS: INR 1.7; Prothrombin Time 20.9 Seconds (11.1-14.7)
[2023-12-03] MEDS: SODIUM CHLORIDE 0.9% IV 1,000 ML 125 ML IV CONT (05:20)
[2023-12-03 05:28] LABS: Estimated CRCL calculation 58 ml/min; Estimated Glomerular Filt Rate 19
[2023-12-03] MEDS: CEFEPIME 2 GM/NS 50 ML 2 GM/50 ML BAG IVPB ×3 (06:22→21:45)
[2023-12-03] MEDS: VANCOMYCIN 1,500 MG/NS 500 ML 1,500 MG/500 ML BAG 250 MG IVPB ×2 (07:24→19:02)
--- NOTE | 2023-12-03 08:14 | PM.PNCARD ---
Progress Note: A&P Assessment and Plan (1) Dilated cardiomyopathy: Code(s): I42.0 - Dilated cardiomyopathy Status: Acute Assessment and Plan: Resolved. Had mild systolic dysfunction. 12/02/23 Echo: EF 55-60%, mild LVE, diastolic dysfunction (E/e' 19), mod biatrial enlargement. Caution regarding too much IVF given diastolic dysfunction and significant CKD with Cr up to 3.6/Cr Cl 58/GFR 19. (2) PAF (paroxysmal atrial fibrillation): Code(s): I48.0 - Paroxysmal atrial fibrillation Status: Acute Assessment and Plan: In atrial fib now and at times can be very rapid to 200 bpm. Was on Coreg for rate control when in atrial fib. Was on Warfarin and INR monitored by his PCP. Warfarin on hold due to gross hematuria. Discuss with patient to start Sotalol 80 mg daily (given renal functioni) to keep in sinus rhythm. Check EKG 1-2 hours post dose for next 5 doses. (3) Morbid (severe) obesity due to excess calories: Code(s): E66.01 - Morbid (severe) obesity due to excess calories Status: Acute (4) Sepsis: Code(s): A41.9 - Sepsis, unspecified organism Status: Acute Assessment and Plan: Probably urosepsis. With fever/chills, elevated WBC. On antibiotics. Managed by hospitalist. Subjective Date/time seen: 12/03/23 08:14 Interval history: Denies chest pain or sob. Exam Const: General: cooperative, healthy appearing, comfortable and obese Nutritional Appearance: obese Orientation/consciousness: oriented to person, oriented to place and oriented to time Resp: Auscultation: clear to auscultation bilaterally, no crackles, no rales, no rhonchi and no wheezes Cardio: Rate: regular rate Rhythm: abnormal rhythm Heart sounds: no murmurs Peripheral pulses: dorsalis pedis present Neuro: General: oriented to person, oriented to place and oriented to time Extrem: Right lower extremity: no edema Left lower extremity: no edema Objective Data Vital Signs Vital Signs: Vital Signs - 24 hr 12/02/23 08:15 12/02/23 08:17 12/02/23 08:30 Temperature Pulse Rate 121 H 106 H 101 H Respiratory Rate 23 H 27 H 29 H Blood Pressure 116/63 Pulse Oximetry 95 94 95 Oxygen Delivery 12/02/23 08:32 12/02/23 08:45 12/02/23 08:47 Temperature Pulse Rate 100 105 H 104 H Respiratory Rate 25 H 28 H 27 H Blood Pressure 122/62 134/59 L Pulse Oximetry 98 94 95 Oxygen Delivery 12/02/23 09:01 12/02/23 09:15 12/02/23 09:30 Temperature Pulse Rate 108 H 104 H 119 H Respiratory Rate 37 H 28 H 28 H Blood Pressure Pulse Oximetry 95 97 94 Oxygen Delivery 12/02/23 09:46 12/02/23 10:12 12/02/23 12:00 Temperature 100.6 F H 103.1 F H Pulse Rate 107 H 111 H 180 H Respiratory Rate 24 H 20 22 H Blood Pressure 134/59 L 127/57 L 116/49 L Pulse Oximetry 95 97 100 Oxygen Delivery 12/02/23 14:37 12/02/23 16:00 12/02/23 12:00 Temperature 101.2 F H 99.6 F Pulse Rate 96 104 H 117 H Respiratory Rate 20 Blood Pressure 123/69 128/57 L Pulse Oximetry 100 94 Oxygen Delivery 12/02/23 14:00 12/02/23 16:00 12/02/23 18:00 Temperature Pulse Rate 105 H 102 H 112 H Respiratory Rate Blood Pressure Pulse Oximetry Oxygen Delivery 12/02/23 12:00 12/02/23 16:00 12/02/23 20:21 Temperature 98.3 F Pulse Rate 79 Respiratory Rate 20 Blood Pressure 103/51 L Pulse Oximetry 99 Oxygen Delivery Room Air Room Air 12/03/23 00:11 12/02/23 20:00 12/02/23 22:00 Temperature 97.6 F Pulse Rate 95 115 H 101 H Respiratory Rate 20 Blood Pressure 99/49 L Pulse Oximetry 97 Oxygen Delivery 12/02/23 20:00 12/03/23 00:00 12/03/23 00:00 Temperature Pulse Rate 102 H Respiratory Rate Blood Pressure Pulse Oximetry Oxygen Delivery Room Air CPAP 12/03/23 04:40 12/03/23 02:00 12/03/23 04:00 Temperature 98.5 F Pulse Rate 93 101 H 97 Respiratory Rate 20 Blood Pressure 115/66 Pulse Oximetry 91 Oxygen
--- NOTE | 2023-12-03 08:26 | ECG_ITS ---
SEE SCANNED COPY FOR CONFIRMED REPORT MTDD
[2023-12-03] MEDS: SOTALOL HCL 80 MG TABLET PO (09:02)
--- NOTE | 2023-12-03 09:19 | PM.IMPN ---
Progress Note: A&P Assessment and Plan (1) Sepsis: Code(s): A41.9 - Sepsis, unspecified organism Status: Acute (2) PAF (paroxysmal atrial fibrillation): Code(s): I48.0 - Paroxysmal atrial fibrillation Status: Acute (3) Orthostatic lightheadedness: Code(s): R42 - Dizziness and giddiness Status: Acute (4) Acute renal failure superimposed on stage 3 chronic kidney disease: Code(s): N17.9 - Acute kidney failure, unspecified; N18.30 - Chronic kidney disease, stage 3 unspecified Status: Acute (5) Congestive heart failure: Qualifiers: Heart failure chronicity: acute Heart failure type: combined systolic and diastolic Qualified Code(s): I50.41 - Acute combined systolic (congestive) and diastolic (congestive) heart failure Code(s): I50.9 - Heart failure, unspecified Status: Acute (6) Elevated troponin: Code(s): R79.89 - Other specified abnormal findings of blood chemistry Status: Acute (7) Anemia: Qualifiers: Anemia type: due to chronic kidney disease Chronic kidney disease stage: unspecified stage Qualified Code(s): N18.9 - Chronic kidney disease, unspecified; D63.1 - Anemia in chronic kidney disease Code(s): D64.9 - Anemia, unspecified Status: Acute (8) Morbid (severe) obesity due to excess calories: Code(s): E66.01 - Morbid (severe) obesity due to excess calories Status: Acute (9) Atrial fibrillation: Qualifiers: Atrial fibrillation type: permanent Qualified Code(s): I48.21 - Permanent atrial fibrillation Code(s): I48.91 - Unspecified atrial fibrillation Status: Acute Plan 43-year-old male with a past medical history morbid obesity BMI 87, atrial fibrillation since 2004 on warfarin, hypertension, dilated cardiomyopathy, systolic heart failure EF 40-45%, [id number] diabetes mellitus, MARTÍNEZ on CPAP, panic disorder, history of hemorrhagic cystitis follows with [facility] U[facility], chronic kidney disease presents with lightheadedness upon standing up with associated complaint of shortness of breath on exertion. Found to be afebrile tachycardia tachypneic in [place] ER. Soft blood pressure 109/58 and leukocytosis. Noted to have hematuria on arrival. Delgadillo catheter placement unsuccessful. Acute renal failure on chronic kidney disease -baseline creatinine fluctuates between 1.8 and 3.8 -on admission his creatinine was 1.8 and now 3.7. This is a significant increase will consult Nephrology. He also has hematuria -pending macro analysis and urine culture. -renal ultrasound without hydronephrosis Paroxysmal atrial fibrillation -currently in AFib rhythm with controlled ventricular rate. On admission is reported his heart rate was as high as 200. -Previously on warfarin but he is now having gross hematuria -cardiology on consult Dr. Avalos. Hold off on warfarin, sotalol 80 mg daily being started with EKG Cheks post dosing. History of dilated cardiomyopathy with systolic heart failure -12/02/2023 surface echocardiogram demonstrating EF 55-60%. Dilated cardiomyopathy resolved. Diastolic dysfunction still present with moderate biatrial enlargement. CV Lasix on admission and then IV fluids. On 12/02 discontinue IV fluids, patient is morbidly obese and lung auscultation is difficult however he clinically appears euvolemic. Anemia/thrombocytopenia -longstanding anemia but his thrombocytopenia is new. Check iron panel and ferritin, vitamin B12, folic acid. In light of his gross hematuria and thrombocytopenia will consult oncology. Elevated troponin -flat. He has no symptoms suggestive of ACS. Likely due to renal disease Sepsis -afebrile on admission. Now resolved. Also had leukocytosis which is resolved however his procalcitonin is very high at 14.5 which is likely due to his decreased GFR. -unclear source. Chest x-ray on admission demonstrating minimal interstitial edema. Urinalysis not
[2023-12-03 09:23] LABS: Anion Gap 6 mmol/L (4-12); Blood Urea Nitrogen 57 mg/dL (9-20); Calcium 8.2 mg/dL (8.4-10.2); Carbon Dioxide 19 mmol/L (22-30); Chloride 113 mmol/L (98-107); Estimated CRCL calculation 56 ml/min; Estimated Glomerular Filt Rate 18; Glucose 127 mg/dL (65-110); Potassium 3.8 mmol/L (3.4-5.0); Sodium 138 mmol/L (137-145)
[2023-12-03 09:35] LABS: Troponin I 0.072 ng/mL (0.000-0.034)
[2023-12-03 09:41] LABS: Procalcitonin 14.5 ng/mL
[2023-12-03 09:43] LABS: Basophils Percent Auto 0.3 % (0.2-1.2); Hematocrit 33.4 % (42.0-52.0); Hemoglobin 9.7 g/dL (14.0-18.0); Immature Granulocyte Absolute 0.03 K/mm3 (0.00-0.031); Immature Granulocyte Percent A 0.3 % (0-0.5); Immature Platelet Fraction Pct 2.8 % (0.9-11.2); Lymphocytes Absolute Auto 0.93 K/mm3 (0.9-3.2); Lymphocytes Percent Auto 9.9 % (18.3-44.2); Mean Corpuscular Hemoglobin 28.3 pg (26-34); Mean Corpuscular Volume 97.4 fl (80-100); Monocytes Absolute Auto 0.6 K/mm3 (0.1-0.6); Monocytes Percent Auto 6.4 % (2.6-8.5); Neutrophils Absolute Auto 7.8 K/mm3 (1.3-6.7); Neutrophils Percent Auto 83.1 % (45.5-73.1); Nucleated Red Blood Cells Perc 0.2 % (0.0-0.2); Red Blood Count 3.43 M/mm3 (4.6-6.20); Red Cell Distribution Width 15.8 % (11.5-14.5); White Blood Count 9.4 K/mm3 (4.5-10.0)
--- NOTE | 2023-12-03 12:39 | PM.CNNEP ---
Assessment and Plan Assessment and plan (1) Acute kidney injury superimposed on CKD: Code(s): N17.9 - Acute kidney failure, unspecified; N18.9 - Chronic kidney disease, unspecified Status: Acute Assessment and Plan: The patient has chronic kidney disease. His baseline creatinine is around 2 giving him a GFR of about 35. The patient does have several issues that could contribute to his CKD. He has chronic hypertension. He has morbid obesity which can lead to focal segmental sclerosis. The high amount of protein in the urine would be consistent but this. Patient also has sleep apnea which can also contribute to focal segmental sclerosis as well. He sees Dr. Andrade in the office and has been evaluated for this. The patient has acute kidney injury superimposed on his chronic kidney disease. The patient does have a high fever. He has hematuria and a few white cells. I am not sure this is enough to labeled as a urinary tract infection but he is getting antibiotics and has had urine cultures done. The patient did have a chest x-ray. He has some shortness of breath. The chest x-ray showed central congestive changes and probable minimal interstitial edema. Because of his body mass index this may lessen the sensitivity and specificity of the result. Physical exam is also less sensitive with regards to volume status due to his high BMI. He is not short of breath and is not hypoxic so I do not think we need to diurese him. At this point the working diagnosis would be ATN due to the fever. At this point he is getting antibiotics. Will follow his BUN and creatinine. Consider IV fluids if the creatinine rises again. (2) Hematuria: Qualifiers: Hematuria type: unspecified type Qualified Code(s): R31.9 - Hematuria, unspecified Code(s): R31.9 - Hematuria, unspecified Status: Acute Assessment and Plan: Urology saw the patient. Cultures are pending. (3) Anemia: Qualifiers: Anemia type: due to chronic kidney disease Chronic kidney disease stage: unspecified stage Qualified Code(s): N18.9 - Chronic kidney disease, unspecified; D63.1 - Anemia in chronic kidney disease Code(s): D64.9 - Anemia, unspecified Status: Acute Assessment and Plan: Hemoglobin is 9.7. This may be due to his kidney dysfunction as this is a chronic issue. (4) Atrial fibrillation: Qualifiers: Atrial fibrillation type: permanent Qualified Code(s): I48.21 - Permanent atrial fibrillation Code(s): I48.91 - Unspecified atrial fibrillation Status: Acute Assessment and Plan: Heart rate is 95. (5) Class 3 severe obesity due to excess calories with body mass index (BMI) greater than or equal to 70 in adult: Qualifiers: Serious obesity comorbidity presence: with serious comorbidity Qualified Code(s): E66.01 - Morbid (severe) obesity due to excess calories; Z68.45 - Body mass index [BMI] 70 or greater, adult Code(s): E66.01 - Morbid (severe) obesity due to excess calories; Z68.45 - Body mass index [BMI] 70 or greater, adult Status: Acute (6) Essential (primary) hypertension: Code(s): I10 - Essential (primary) hypertension Status: Acute Assessment and Plan: Blood pressure is under good control. He is off his antihypertensives. History of Present Illness Reason for Consult Consult date: 12/03/23 Chief Complaint Chief complaint: CHF History of Present Illness Narrative: Dionisio is an unfortunate 43-year-old gentleman has multiple medical problems including chronic kidney disease with a baseline creatinine of around 2 giving him CKD stage IIIB. He also has a very high body mass index, anemia, atrial fibrillation, diabetes, hypertension, hematuria, sleep apnea. The patient's creatinine rises and falls without clear explanation. Dr. Andrade in his note wrote that this is probably a hemodynamic issue. The patient's creatini
[2023-12-03 14:01] LABS: Creatine Kinase 2426 U/L (55-170)
[2023-12-03] MEDS: SALINE LOCK FLUSH 10 ML IV PUSH ×2 (14:46→21:45)
[2023-12-03 16:21] LABS: Bacteria Urine None Seen /hpf; Non Pathogenic Casts 0-2; RBC Urine >100 /hpf (0-2); Squamous Epithelial Cell Urine Occasional /hpf (Few)
[2023-12-03 16:26] LABS: Appearance Urine Cloudy (Clear); Bilirubin Urine Negative (Negative); Blood Urine 3+ (Negative); Glucose Urine UA Negative (Negative); Ketones Urine Negative (Negative); Leukocyte Esterase Ur 1+ LEU/UL (Negative); Nitrate Urine Negative (Negative); Protein Urine 3+ mg/dL (Negative); Specific Grav Ur 1.012 (1.001-1.035); Urobilinogen Urine 0.2 mg/dL (<2.0); pH Urine 5.5 (5.0-9.0)
[2023-12-03 16:27] LABS: Color Urine Amber (Yellow)
[2023-12-03 16:28] LABS: Add Urine Microscopic? YES
[2023-12-03 16:34] LABS: Creatinine Urine 98.3 mg/dL; Total Protein Urine Random 193 mg/dL; Ur Ttl Prot Creatinine Ratio 1.96 mg/mg (0-0.20)
[2023-12-03 16:38] LABS: Sodium Urine Random 26 meq/L
[2023-12-03 18:24] LABS: Vancomycin Trough 14.3 ug/mL (10.0-20.0)
[2023-12-04] VITALS (21 sets, daily range): BP systolic 118–142; BP diastolic 59–94; PULSE 81–100; RESP 20–24; TEMP 36.3–36.7; O2SAT 92–100
[2023-12-04] MEDS: SALINE LOCK FLUSH 10 ML IV PUSH ×3 (06:38→22:30)
[2023-12-04] MEDS: CEFEPIME 2 GM/NS 50 ML 2 GM/50 ML BAG IVPB ×3 (06:43→22:25)
[2023-12-04 06:53] LABS: Basophils Percent Auto 0.3 % (0.2-1.2); Eosinophils Percent Auto 0.4 % (0-4.4); Hematocrit 32.6 % (42.0-52.0); Hemoglobin 9.7 g/dL (14.0-18.0); Immature Granulocyte Absolute 0.03 K/mm3 (0.00-0.031); Immature Granulocyte Percent A 0.4 % (0-0.5); Lymphocytes Absolute Auto 0.86 K/mm3 (0.9-3.2); Mean Corpuscular HGB Conc 29.8 g/dl (32-36); Mean Corpuscular Hemoglobin 27.2 pg (26-34); Mean Corpuscular Volume 91.3 fl (80-100); Monocytes Absolute Auto 0.6 K/mm3 (0.1-0.6); Monocytes Percent Auto 7.9 % (2.6-8.5); Neutrophils Absolute Auto 5.7 K/mm3 (1.3-6.7); Platelet Count Result 107 k/mm3 (150-375); Red Blood Count 3.57 M/mm3 (4.6-6.20); White Blood Count 7.2 K/mm3 (4.5-10.0)
[2023-12-04 07:03] LABS: Alanine Aminotransferase 41 U/L (6-50); Albumin Level 3.2 g/dL (3.5-5.1); Alkaline Phosphatase 55 U/L (38-126); Anion Gap 7 mmol/L (4-12); Aspartate Amino Transferase 73 U/L (17-59); Bilirubin,Total 0.7 mg/dL (0.2-1.3); Blood Urea Nitrogen 65 mg/dL (9-20); Calcium 8.6 mg/dL (8.4-10.2); Carbon Dioxide 21 mmol/L (22-30); Chloride 114 mmol/L (98-107); Estimated CRCL calculation 51 ml/min; Estimated Glomerular Filt Rate 16; Glucose 94 mg/dL (65-110); INR 1.6; Magnesium 2.2 mg/dL (1.6-2.3); Phosphorus 4.9 mg/dL (2.5-4.5); Potassium 3.8 mmol/L (3.4-5.0); Sodium 142 mmol/L (137-145)
[2023-12-04 07:08] LABS: Iron 25 ug/dL (49-181)
[2023-12-04 07:13] LABS: Vancomycin Trough 18.9 ug/mL (10.0-20.0)
[2023-12-04 07:17] LABS: Percent Iron Saturation 9 % (20-50)
[2023-12-04 07:26] LABS: Procalcitonin 11.7 ng/mL
--- NOTE | 2023-12-04 07:57 | PM.PNCARD ---
Progress Note: A&P Assessment and Plan (1) Dilated cardiomyopathy: Code(s): I42.0 - Dilated cardiomyopathy Status: Acute Assessment and Plan: Resolved. Had mild systolic dysfunction. 12/02/23 Echo: EF 55-60%, mild LVE, diastolic dysfunction (E/e' 19), mod biatrial enlargement. (2) PAF (paroxysmal atrial fibrillation): Code(s): I48.0 - Paroxysmal atrial fibrillation Status: Acute Assessment and Plan: In atrial fib now and at times can be very rapid to 200 bpm. Was on Coreg for rate control when in atrial fib. Was on Warfarin and INR monitored by his PCP. Warfarin on hold due to gross hematuria. Discuss with patient to start Sotalol 80 mg daily (given renal functioni) to keep in sinus rhythm. Check EKG 1-2 hours post dose for next 5 doses. (3) Morbid (severe) obesity due to excess calories: Code(s): E66.01 - Morbid (severe) obesity due to excess calories Status: Acute (4) Sepsis: Code(s): A41.9 - Sepsis, unspecified organism Status: Acute Assessment and Plan: Probably urosepsis. With fever/chills, elevated WBC. On antibiotics. Managed by hospitalist. Given worsening Cr, may hydrate to improve kidney function. Subjective Date/time seen: 12/04/23 07:57 Interval history: Denies chest pain or sob. Exam Const: General: cooperative, healthy appearing, comfortable and obese Nutritional Appearance: obese Orientation/consciousness: oriented to person, oriented to place and oriented to time Resp: Auscultation: clear to auscultation bilaterally, no crackles, no rales, no rhonchi and no wheezes Cardio: Rate: regular rate Rhythm: abnormal rhythm Heart sounds: no murmurs Peripheral pulses: dorsalis pedis present Neuro: General: oriented to person, oriented to place and oriented to time Extrem: Right lower extremity: no edema Left lower extremity: no edema Objective Data Vital Signs Vital Signs: Vital Signs - 24 hr 12/03/23 08:00 12/03/23 09:02 12/03/23 09:31 Temperature 99.6 F Pulse Rate 100 75 Respiratory Rate 20 Blood Pressure 110/58 L Pulse Oximetry 96 96 Oxygen Delivery Room Air 12/03/23 08:00 12/03/23 12:00 12/03/23 10:00 Temperature 98.3 F Pulse Rate 91 95 98 Respiratory Rate 24 H Blood Pressure 106/49 L Pulse Oximetry 95 Oxygen Delivery 12/03/23 16:00 12/03/23 12:00 12/03/23 14:00 Temperature 98.0 F Pulse Rate 97 98 93 Respiratory Rate 24 H Blood Pressure 96/55 L Pulse Oximetry 97 Oxygen Delivery 12/03/23 16:00 12/03/23 18:00 12/03/23 19:58 Temperature 97.4 F L Pulse Rate 56 L 92 92 Respiratory Rate 24 H Blood Pressure 118/61 Pulse Oximetry 100 Oxygen Delivery 12/03/23 20:00 12/03/23 22:00 12/03/23 20:00 Temperature Pulse Rate 97 91 Respiratory Rate Blood Pressure Pulse Oximetry Oxygen Delivery Room Air 12/04/23 00:06 12/04/23 00:00 12/04/23 00:00 Temperature 97.6 F Pulse Rate 98 91 Respiratory Rate 24 H Blood Pressure 120/63 Pulse Oximetry 100 Oxygen Delivery Room Air 12/03/23 23:10 12/04/23 02:00 12/04/23 04:00 Temperature Pulse Rate 98 91 81 Respiratory Rate Blood Pressure Pulse Oximetry 99 Oxygen Delivery 12/04/23 04:00 12/04/23 06:00 12/04/23 06:00 Temperature 97.8 F Pulse Rate 92 95 Respiratory Rate 24 H Blood Pressure 126/66 Pulse Oximetry 98 Oxygen Delivery Room Air 12/04/23 07:52 Temperature 97.4 F L Pulse Rate 93 Respiratory Rate 24 H Blood Pressure 122/60 Pulse Oximetry 97 Oxygen Delivery Intake/Output Intake/Output: Intake & Output 12/01/23 12/02/23 12/03/23 12/04/23 23:59 23:59 23:59 23:59 Intake Total 2450 5050 600 Output Total 900 1625 1100 Balance 1550 3425 -500 Meds/Results Medications: Active Medications Generic Name Dose Route Start Last Admin Trade Name Freq PRN Reason Stop Dose Admin Cefepime HCl 2 gm in 50 mls @ 100 mls/hr
[2023-12-04 08:14] LABS: Folic Acid 10.5 ng/mL (2.76->20); Vitamin B12 > 1000.0 pg/mL (239-931)
--- NOTE | 2023-12-04 08:20 | PM.IMPN ---
Progress Note: A&P Assessment and Plan (1) Sepsis: Code(s): A41.9 - Sepsis, unspecified organism Status: Acute (2) PAF (paroxysmal atrial fibrillation): Code(s): I48.0 - Paroxysmal atrial fibrillation Status: Acute (3) Orthostatic lightheadedness: Code(s): R42 - Dizziness and giddiness Status: Acute (4) Acute renal failure superimposed on stage 3 chronic kidney disease: Code(s): N17.9 - Acute kidney failure, unspecified; N18.30 - Chronic kidney disease, stage 3 unspecified Status: Acute (5) Congestive heart failure: Qualifiers: Heart failure chronicity: acute Heart failure type: combined systolic and diastolic Qualified Code(s): I50.41 - Acute combined systolic (congestive) and diastolic (congestive) heart failure Code(s): I50.9 - Heart failure, unspecified Status: Acute (6) Elevated troponin: Code(s): R79.89 - Other specified abnormal findings of blood chemistry Status: Acute (7) Anemia: Qualifiers: Anemia type: due to chronic kidney disease Chronic kidney disease stage: unspecified stage Qualified Code(s): N18.9 - Chronic kidney disease, unspecified; D63.1 - Anemia in chronic kidney disease Code(s): D64.9 - Anemia, unspecified Status: Acute (8) Morbid (severe) obesity due to excess calories: Code(s): E66.01 - Morbid (severe) obesity due to excess calories Status: Acute (9) Atrial fibrillation: Qualifiers: Atrial fibrillation type: permanent Qualified Code(s): I48.21 - Permanent atrial fibrillation Code(s): I48.91 - Unspecified atrial fibrillation Status: Acute Plan 43-year-old male with a past medical history morbid obesity BMI 87, atrial fibrillation since 2004 on warfarin, hypertension, dilated cardiomyopathy, systolic heart failure EF 40-45%, [id number] diabetes mellitus, MARTÍNEZ on CPAP, panic disorder, history of hemorrhagic cystitis follows with [facility], chronic kidney disease presents with lightheadedness upon standing up with associated complaint of shortness of breath on exertion. Found to be afebrile tachycardia tachypneic in [place] ER. Soft blood pressure 109/58 and leukocytosis. Noted to have hematuria on arrival. Delgadillo catheter placement unsuccessful. Acute renal failure on chronic kidney disease, nonoliguric -baseline creatinine fluctuates between 1.8 and 3.8 -on admission his creatinine was 1.8 and now 3.7, now 4+. -nephrology consulted. Appreciate recommendations. -start normal saline at 100 cc/hour -renal ultrasound without hydronephrosis Sepsis -afebrile on admission along with leukocytosis which has resolved. -unclear source. Chest x-ray on admission demonstrating minimal interstitial edema. Urinalysis obtained on 12/02 which is abnormal her urine culture was for some reason not conducted. Again ordered a urine culture -on admission he has received cefepime and vancomycin. Check MRSA PCR and if negative can DC vancomycin. His sepsis is resolving. In the past he grew Proteus mirabilis sensitive to cefepime -blood cultures pending Paroxysmal atrial fibrillation -currently in AFib rhythm with controlled ventricular rate. On admission is reported his heart rate was as high as 200. -Previously on warfarin but he is now having gross hematuria -cardiology on consult Dr. Avalos. Hold off on warfarin, sotalol 80 mg daily started with EKG Cheks post dosing. History of dilated cardiomyopathy with systolic heart failure -12/02/2023 surface echocardiogram demonstrating EF 55-60%. Dilated cardiomyopathy resolved. Diastolic dysfunction still present with moderate biatrial enlargement. He received Lasix on admission and then IV fluids. -IV fluids being restarted on 12/03 due to FITO. Monitor closely, currently appears euvolemic. Anemia/thrombocytopenia -longstanding anemia but his thrombocytopenia is new. Check iron panel and ferritin, vitamin B12, folic
[2023-12-04] MEDS: VANCOMYCIN 1,500 MG/NS 500 ML 1,500 MG/500 ML BAG 250 MG IVPB (09:32)
[2023-12-04] MEDS: SODIUM CHLORIDE 0.9% IV 1,000 ML 100 ML IV CONT ×2 (09:35→19:37)
[2023-12-04] MEDS: SOTALOL HCL 80 MG TABLET PO (09:36)
--- NOTE | 2023-12-04 12:09 | PM.PNNEP ---
Progress Note: A&P Assessment and Plan (1) Acute kidney injury superimposed on CKD: Code(s): N17.9 - Acute kidney failure, unspecified; N18.9 - Chronic kidney disease, unspecified Status: Acute Assessment and Plan: The patient has chronic kidney disease. His baseline creatinine is around 2 giving him a GFR of about 35. Most likely due to hypertension, weight, sleep apnea. The patient has acute kidney injury superimposed on his chronic kidney disease. Most likely due to infection. He had a high fever, pyuria, and possibly some pulmonary issues. He received antibiotics and IV fluids overnight. He is feeling better today. His creatinine mckinley but the increment was lower so hopefully he is turning around. (2) Hematuria: Qualifiers: Hematuria type: unspecified type Qualified Code(s): R31.9 - Hematuria, unspecified Code(s): R31.9 - Hematuria, unspecified Status: Acute Assessment and Plan: Urology saw the patient. Urine cultures are pending. Blood cultures negative (3) Anemia: Qualifiers: Anemia type: due to chronic kidney disease Chronic kidney disease stage: unspecified stage Qualified Code(s): N18.9 - Chronic kidney disease, unspecified; D63.1 - Anemia in chronic kidney disease Code(s): D64.9 - Anemia, unspecified Status: Acute Assessment and Plan: Hemoglobin is 9.7. Probably related to his kidney issues but infection may be playing a role as well. No need for MARITA at this point (4) Atrial fibrillation: Qualifiers: Atrial fibrillation type: permanent Qualified Code(s): I48.21 - Permanent atrial fibrillation Code(s): I48.91 - Unspecified atrial fibrillation Status: Acute Assessment and Plan: Heart rate is 98. (5) Class 3 severe obesity due to excess calories with body mass index (BMI) greater than or equal to 70 in adult: Qualifiers: Serious obesity comorbidity presence: with serious comorbidity Qualified Code(s): E66.01 - Morbid (severe) obesity due to excess calories; Z68.45 - Body mass index [BMI] 70 or greater, adult Code(s): E66.01 - Morbid (severe) obesity due to excess calories; Z68.45 - Body mass index [BMI] 70 or greater, adult Status: Acute (6) Essential (primary) hypertension: Code(s): I10 - Essential (primary) hypertension Status: Acute Assessment and Plan: Blood pressure is under good control. He is off his antihypertensives. Subjective Date/time seen: 12/04/23 12:09 Interval history: Patient feels a little better. Appetite improved. He did eat some breakfast. No chest pain or shortness of breath Review of Systems Cardiovascular: Cardiovascular: Reports no additional cardiovascular complaints Respiratory: Respiratory: Reports no additional respiratory complaints Gastrointestinal: Gastrointestinal: Reports no additional gastrointestinal complaints Genitourinary: Genitourinary: Reports no additional male genitourinary complaints Exam Narrative: WDWN in NAD skin no rash head ncat lungs clear cor reg no rub abd BS+ nontender and soft ext no edema. Objective Data Vital Signs Vital Signs: Vital Signs - 24 hr 12/03/23 16:00 12/03/23 14:00 12/03/23 16:00 Temperature 98.0 F Pulse Rate 97 93 56 L Respiratory Rate 24 H Blood Pressure 96/55 L Pulse Oximetry 97 Oxygen Delivery 12/03/23 18:00 12/03/23 19:58 12/03/23 20:00 Temperature 97.4 F L Pulse Rate 92 92 97 Respiratory Rate 24 H Blood Pressure 118/61 Pulse Oximetry 100 Oxygen Delivery 12/03/23 22:00 12/03/23 20:00 12/04/23 00:06 Temperature 97.6 F Pulse Rate 91 98 Respiratory Rate 24 H Blood Pressure 120/63 Pulse Oximetry 100 Oxygen Delivery Room Air 12/04/23 00:00 12/04/23 00:00 12/03/23 23:10 Temperature Pulse Rate 91 98 Respiratory Rate Blood Pressure Pulse Oximetry 99 Oxygen Deli
--- NOTE | 2023-12-04 13:03 | ECG_ITS ---
SEE SCANNED COPY FOR CONFIRMED REPORT MTDD
[2023-12-04 20:16] LABS: MRSA (PCR) DETECTED (NOT DETECTE)
[2023-12-05] VITALS (20 sets, daily range): BP systolic 108–149; BP diastolic 45–99; PULSE 57–109; RESP 18–20; TEMP 36.5–37.3; O2SAT 95–100
[2023-12-05 04:54] LABS: Basophils Percent Auto 0.4 % (0.2-1.2); Eosinophils Absolute Auto 0.1 K/mm3 (0-0.3); Eosinophils Percent Auto 1.4 % (0-4.4); Hematocrit 32.1 % (42.0-52.0); Hemoglobin 9.8 g/dL (14.0-18.0); Immature Granulocyte Absolute 0.05 K/mm3 (0.00-0.031); Immature Granulocyte Percent A 0.7 % (0-0.5); Lymphocytes Absolute Auto 0.79 K/mm3 (0.9-3.2); Mean Corpuscular HGB Conc 30.5 g/dl (32-36); Mean Corpuscular Hemoglobin 27.3 pg (26-34); Mean Corpuscular Volume 89.4 fl (80-100); Mean Platelet Volume 11.2 fl (7.4-10.4); Monocytes Absolute Auto 0.7 K/mm3 (0.1-0.6); Monocytes Percent Auto 9.5 % (2.6-8.5); Neutrophils Absolute Auto 5.5 K/mm3 (1.3-6.7); Platelet Count Result 105 k/mm3 (150-375); Red Blood Count 3.59 M/mm3 (4.6-6.20); Red Cell Distribution Width 14.9 % (11.5-14.5); White Blood Count 7.2 K/mm3 (4.5-10.0)
[2023-12-05 05:06] LABS: INR 1.6; Prothrombin Time 20.1 Seconds (11.1-14.7)
[2023-12-05 05:15] LABS: Alanine Aminotransferase 51 U/L (6-50); Albumin Level 3.1 g/dL (3.5-5.1); Alkaline Phosphatase 58 U/L (38-126); Anion Gap 7 mmol/L (4-12); Aspartate Amino Transferase 60 U/L (17-59); Bilirubin,Total 0.8 mg/dL (0.2-1.3); Blood Urea Nitrogen 67 mg/dL (9-20); Calcium 8.4 mg/dL (8.4-10.2); Carbon Dioxide 21 mmol/L (22-30); Chloride 114 mmol/L (98-107); Estimated CRCL calculation 52 ml/min; Estimated Glomerular Filt Rate 16; Glucose 96 mg/dL (65-110); Magnesium 2.3 mg/dL (1.6-2.3); Phosphorus 4.3 mg/dL (2.5-4.5); Sodium 142 mmol/L (137-145)
[2023-12-05] MEDS: SODIUM CHLORIDE 0.9% IV 1,000 ML 100 ML IV CONT ×2 (06:12→16:20)
[2023-12-05] MEDS: CEFEPIME 2 GM/NS 50 ML 2 GM/50 ML BAG IVPB ×2 (06:14→14:15)
[2023-12-05] MEDS: SALINE LOCK FLUSH 10 ML IV PUSH ×3 (06:17→21:12)
--- NOTE | 2023-12-05 07:45 | PM.PNCARD ---
Progress Note: A&P Assessment and Plan (1) Dilated cardiomyopathy: Code(s): I42.0 - Dilated cardiomyopathy Status: Acute Assessment and Plan: Resolved. Had mild systolic dysfunction. 12/02/23 Echo: EF 55-60%, mild LVE, diastolic dysfunction (E/e' 19), mod biatrial enlargement. (2) PAF (paroxysmal atrial fibrillation): Code(s): I48.0 - Paroxysmal atrial fibrillation Status: Acute Assessment and Plan: In atrial fib now and at times can be very rapid to 200 bpm. Was on Coreg for rate control when in atrial fib. [id number] (no longer have CHF). Was on Warfarin and INR monitored by his PCP. Warfarin on hold due to gross hematuria. Could be on aspirin 325 mg daily as an alternative to Warfarin. Would hold off on anticoagulation until no longer bleeding and OK by urology. Discuss with patient to start on 12/03/23 Sotalol 80 mg daily (given renal function) to keep in sinus rhythm. Check EKG 1-2 hours post dose for next 5 doses. (3) Morbid (severe) obesity due to excess calories: Code(s): E66.01 - Morbid (severe) obesity due to excess calories Status: Acute (4) Sepsis: Code(s): A41.9 - Sepsis, unspecified organism Status: Acute Assessment and Plan: Probably urosepsis. With fever/chills, elevated WBC. On antibiotics. Managed by hospitalist. Given worse than baseline Cr, may hydrate to improve kidney function. Subjective Date/time seen: 12/05/23 07:45 Interval history: Denies chest pain or sob. Exam Const: General: cooperative, healthy appearing, comfortable and obese Nutritional Appearance: obese Orientation/consciousness: oriented to person, oriented to place and oriented to time Resp: Auscultation: clear to auscultation bilaterally, no crackles, no rales, no rhonchi and no wheezes Cardio: Rate: regular rate and tachycardic Rhythm: regular rhythm and abnormal rhythm Heart sounds: no murmurs Peripheral pulses: dorsalis pedis present Neuro: General: oriented to person, oriented to place and oriented to time Extrem: Right lower extremity: no edema Left lower extremity: no edema Objective Data Vital Signs Vital Signs: Vital Signs - 24 hr 12/04/23 07:52 12/04/23 09:36 12/04/23 11:42 Temperature 97.4 F L 98.0 F Pulse Rate 93 97 98 Respiratory Rate 24 H 20 Blood Pressure 122/60 118/59 L Pulse Oximetry 97 96 Oxygen Delivery 12/04/23 08:00 12/04/23 12:00 12/04/23 15:20 Temperature Pulse Rate Respiratory Rate Blood Pressure 133/88 Pulse Oximetry Oxygen Delivery Room Air Room Air 12/04/23 15:36 12/04/23 15:15 12/04/23 16:00 Temperature 98.0 F Pulse Rate 100 Respiratory Rate 20 Blood Pressure 142/94 H 127/66 Pulse Oximetry 92 Oxygen Delivery Room Air 12/04/23 08:00 12/04/23 10:00 12/04/23 12:00 Temperature Pulse Rate 98 90 95 Respiratory Rate Blood Pressure Pulse Oximetry Oxygen Delivery 12/04/23 14:00 12/04/23 16:00 12/04/23 18:00 Temperature Pulse Rate 89 97 83 Respiratory Rate Blood Pressure Pulse Oximetry Oxygen Delivery 12/04/23 20:24 12/04/23 20:00 12/04/23 22:00 Temperature 97.8 F Pulse Rate 87 88 90 Respiratory Rate 20 Blood Pressure 125/72 Pulse Oximetry 95 Oxygen Delivery 12/04/23 20:00 12/05/23 00:04 12/05/23 00:00 Temperature 97.8 F Pulse Rate 109 H Respiratory Rate 20 Blood Pressure 121/75 Pulse Oximetry 96 Oxygen Delivery Room Air CPAP 12/05/23 00:00 12/05/23 02:00 12/04/23 23:00 Temperature Pulse Rate 109 H 89 88 Respiratory Rate Blood Pressure Pulse Oximetry 96 Oxygen Delivery 12/04/23 23:00 12/05/23 04:43 12/05/23 04:00 Temperature 97.8 F Pulse Rate 95 81 Respiratory Rate 20 Blood Pressure 108/72 Pulse Oximetry 96 95 Oxygen Delivery Room Air 12/05/23 04:00 12/05/23 06:00 12/05/23 07:44 Temperature Pulse Rate 80 96 Respiratory Rate 20 Blood Press
--- NOTE | 2023-12-05 07:55 | PM.IMPN ---
Progress Note: A&P Assessment and Plan (1) Sepsis: Code(s): A41.9 - Sepsis, unspecified organism Status: Acute (2) PAF (paroxysmal atrial fibrillation): Code(s): I48.0 - Paroxysmal atrial fibrillation Status: Acute (3) Orthostatic lightheadedness: Code(s): R42 - Dizziness and giddiness Status: Acute (4) Acute renal failure superimposed on stage 3 chronic kidney disease: Code(s): N17.9 - Acute kidney failure, unspecified; N18.30 - Chronic kidney disease, stage 3 unspecified Status: Acute (5) Congestive heart failure: Qualifiers: Heart failure chronicity: acute Heart failure type: combined systolic and diastolic Qualified Code(s): I50.41 - Acute combined systolic (congestive) and diastolic (congestive) heart failure Code(s): I50.9 - Heart failure, unspecified Status: Acute (6) Elevated troponin: Code(s): R79.89 - Other specified abnormal findings of blood chemistry Status: Acute (7) Anemia: Qualifiers: Anemia type: due to chronic kidney disease Chronic kidney disease stage: unspecified stage Qualified Code(s): N18.9 - Chronic kidney disease, unspecified; D63.1 - Anemia in chronic kidney disease Code(s): D64.9 - Anemia, unspecified Status: Acute (8) Morbid (severe) obesity due to excess calories: Code(s): E66.01 - Morbid (severe) obesity due to excess calories Status: Acute (9) Atrial fibrillation: Qualifiers: Atrial fibrillation type: permanent Qualified Code(s): I48.21 - Permanent atrial fibrillation Code(s): I48.91 - Unspecified atrial fibrillation Status: Acute Plan A very pleasant 43-year-old male with a past medical history morbid obesity BMI 87, atrial fibrillation since 2004 on warfarin, hypertension, dilated cardiomyopathy, [id number] diabetes mellitus, MARTÍNEZ on CPAP, panic disorder, history of hemorrhagic cystitis follows with [facility], chronic kidney disease presents with lightheadedness upon standing up with associated complaint of shortness of breath on exertion. Found to be afebrile tachycardia tachypneic in [place] ER. Soft blood pressure 109/58 and leukocytosis. Noted to have hematuria on arrival. Delgadillo catheter placement unsuccessful. Acute renal failure on chronic kidney disease, nonoliguric -baseline creatinine fluctuates between 1.8 and 3.8 -on admission his creatinine was 1.8 and now 3.7, now 4+. Now coming down. Continue normal saline. Eliot a any further Nephrology recommendations. -renal ultrasound without hydronephrosis Sepsis -afebrile on admission along with leukocytosis which has resolved. -unclear source. Chest x-ray on admission demonstrating minimal interstitial edema. Urinalysis obtained on 12/02 which is abnormal her urine culture was for some reason not conducted. Again ordered a urine culture -on admission he has received cefepime and vancomycin. MRSA PCR is positive. However, his sepsis is resolved. Urine cultures pending although unreliable since this was taken 1-2 days after he started antibiotics. In the past he grew Proteus mirabilis sensitive to cefepime so we will discontinue vancomycin and monitor. -blood cultures pending Paroxysmal atrial fibrillation -currently in AFib rhythm with controlled ventricular rate. On admission is reported his heart rate was as high as 200. -Previously on warfarin but he is now having gross hematuria. Per Cardiology Dr. Avalos, we can move forward with aspirin 325 mg p.o. q.day for prophylaxis. Will start soon when his hematuria has completely resolved. -previously told with Coreg. He has been started on sotalol since 12/02. Continue EKG checks for QTC. History of dilated cardiomyopathy with systolic heart failure, improved/resolved. -12/02/2023 surface echocardiogram demonstrating EF 55-60%. Dilated cardiomyopathy resolved. Diastolic dysfunction still present with moderate biatrial enlargem
--- NOTE | 2023-12-05 09:45 | PDONCCN ---
HPI - Date of Consult Date/Time: 12/05/23 17:40 <Angelo Rowley - 12/05/23 17:41> 12/05/23 09:45 <Migdalia Lou - 12/05/23 09:50> Requesting Physician: Joy Wade MD <Angelo Rowley - 12/05/23 17:41> Joy Wade MD <Migdalia Lou - 12/05/23 09:50> Primary Care Provider: Sonia Stack DO <Angelo Rowley - 12/05/23 17:41> Sonia Stack DO <Migdalia Lou - 12/05/23 09:50> - Consult Narrative Reason for consult: Anemia <Migdalia Lou - 12/05/23 09:50> Narrative: Dionisio Contreras is a 43 year old male <Angelo Rowley - 12/05/23 17:41> Dionisio Contreras is a 43 year old male with a past medical history of obesity, afib, HTN, DM, heart failure, MARTÍNEZ w/ CPAP use, and CKD who was admitted for lightheadedness. He was also having hemorrhagic cystitis. He reports a history of anemia and low plts since 2021. He has been taking oral iron 65mg w/ Vit C daily for this. He also follows with Dr. Andrade for CKD. He is not on dialysis at this point, but creatinine is around 4.00 today. He has never had a colonoscopy. Denies any blood in his stool. Reports pink tinged urine now which has improved. He is also taking Vit B12. He eats red meat. Never had a gastric bypass surgery. Denies any GI issues to cause malabsorption, but he is having diarrhea since he has been admitted to the hospital. He reports nausea as well, but has not taken anything for it. Labs today are notable for Hgb 9.8, Hct 32, Plt 105,000, Cr 4.00. Iron studies show 25, % sat 9, B12 >1000. <Migdalia Lou - 12/05/23 09:50> Review of Systems - Review of Systems All systems reviewed & are unremarkable except as noted in HPI and bel <Migdalia Lou - 12/05/23 09:54> - Neurologic Reports system reviewed and no additional complaints, except as documented, Denies syncope <Migdalia Lou - 12/05/23 09:50> [facility] Medical History: Medical History (Last Reviewed 12/03/23 @ 12:39 by Devyn Marmolejo MD) Anemia Atrial fibrillation Class 3 severe obesity due to excess calories with body mass index (BMI) greater than or equal to 70 in adult Dehydration Diabetes mellitus Essential (primary) hypertension Hematuria Morbid (severe) obesity due to excess calories Obstructive sleep apnea (adult) (pediatric) <Angelo Rowley - 12/05/23 17:41> Medical History (Last Reviewed 12/03/23 @ 12:39 by Devyn Marmolejo MD) Anemia Atrial fibrillation Class 3 severe obesity due to excess calories with body mass index (BMI) greater than or equal to 70 in adult Dehydration Diabetes mellitus Essential (primary) hypertension Hematuria Morbid (severe) obesity due to excess calories Obstructive sleep apnea (adult) (pediatric) <Migdalia Lou - 12/05/23 09:50> Surgical History: Surgical History (Last Reviewed 12/03/23 @ 12:39 by Devyn Marmolejo MD) H/O skin graft History of cystoscopy <Angelo Rowley - 12/05/23 17:41> Surgical History (Last Reviewed 12/03/23 @ 12:39 by Devyn Marmolejo MD) H/O skin graft History of cystoscopy <Migdalia Lou - 12/05/23 09:50> Family History: Family History (Last Reviewed 12/03/23 @ 12:39 by Devyn Marmolejo MD) Mother Patient's mother is in good health Heart disease Afib Sibling Patient's sister is in good health Father Family history of cardiovascular disease Family history of chronic obstructive pulmonary disease Hypertension MRSA infection <Angelo Rowley - 12/05/23 17:41> Family History (Last Reviewed 12/03/23 @ 12:39 by Devyn Marmolejo MD) Mother Patient's mother is in good health Heart disease Afib Sibling Patient's sister is in good health Father Family history of cardiovascular disease Family history of chronic obstructive pulmonary disease Hypertension MRSA infection <Migdalia Lou - 12/05/23 09:50> - Social History Social His
[2023-12-05] MEDS: IRON SUCROSE COMPLEX 500 MG in SODIUM CHLORIDE 0.9% IV 250 ML 79 MG IVPB (10:16)
[2023-12-05] MEDS: MUPIROCIN 2% OINT 22 GM TUBE 1 APPLIC EACH NARE ×2 (10:16→20:59)
[2023-12-05] MEDS: SOTALOL HCL 80 MG TABLET PO (10:16)
--- NOTE | 2023-12-05 11:02 | PM.PNNEP ---
Progress Note: A&P Assessment and Plan (1) FITO (acute kidney injury): Code(s): N17.9 - Acute kidney failure, unspecified Status: Acute Assessment and Plan: suspect secondary to infection given fever and pyuria s/p IVFs and antibiotics evaluation to date: renal ultrasound normal UA concerning for infection urine electrolytes prerenal CPK somewhat elevated on admission - follow trend slow improvement in creatinine good urine output noted follow trend of repeat labs and UOP (2) Stage 3b chronic kidney disease: Code(s): N18.32 - Chronic kidney disease, stage 3b Status: Chronic Assessment and Plan: baseline creatinine runs 1.8 - 2.6mg/dl in the last couple of years this is secondary to hypertension, obesity, annd MARTÍNEZ outpatient evaluation significant for proteinuria and hematuria s/p urological evaluation for hematuria that was unrevealing (3) Urinary tract infection: Code(s): N39.0 - Urinary tract infection, site not specified Status: Acute Assessment and Plan: admission UA suggestive urine culture negative (although this was collected AFTER antibiotics were started) continue supportive therapy (4) Hematuria: Qualifiers: Hematuria type: unspecified type Qualified Code(s): R31.9 - Hematuria, unspecified Code(s): R31.9 - Hematuria, unspecified Status: Acute Assessment and Plan: chronic issue at baseline Urology recommendations noted follow culture data (5) Anemia: Qualifiers: Anemia type: due to chronic kidney disease Chronic kidney disease stage: unspecified stage Qualified Code(s): N18.9 - Chronic kidney disease, unspecified; D63.1 - Anemia in chronic kidney disease Code(s): D64.9 - Anemia, unspecified Status: Acute Assessment and Plan: H/H relatively stable likely partly related to known CKD and acute illness no need for Epogen follow trend of H/H (6) Essential (primary) hypertension: Code(s): I10 - Essential (primary) hypertension Status: Acute Assessment and Plan: reasonable control to start meds but more so for rate control of afib follow trend of hemodynamics Will continue to follow. Subjective Date/time seen: 12/05/23 11:02 Interval history: Follow-up for acute kidney injury/acute renal failure on chronic kidney disease. Chart reviewed -- assuming care from Dr. Marmolejo; only slight improvement in renal function by AM labs but continues to make good urine output; no apparent distress voiced at the time of my visit; no acute issues/events overnight or earlier this morning. Exam Narrative: General: large but WD/WN male in NAD Heart: normal S1 and S2; no rub Lungs: clear to auscultation Abdomen: soft, nontender, nondistended, positive bowel sounds Extremities: no cyanosis or clubbing; no edema Skin: warm and dry Objective Data Vital Signs Vital Signs: Vital Signs Temp Pulse Resp BP Pulse Ox O2 Del Method 12/05/23 10:16 98.2 F 93 18 121/60 98 12/05/23 09:42 149/99 H 12/05/23 09:42 140/88 12/05/23 08:00 97.7 F 98 20 128/45 L 99 12/05/23 07:44 99.2 F 96 20 125/65 100 12/05/23 06:00 80 12/05/23 04:00 CPAP 12/05/23 04:00 81 12/05/23 04:43 97.8 F 95 20 108/72 95 12/04/23 23:00 96 Room Air 12/04/23 23:00 88 96 12/05/23 02:00 89 12/05/23 00:00 109 H 12/05/23 00:00 CPAP 12/05/23 00:04 97.8 F 109 H 20 121/75 96 12/04/23 20:00 Room Air 12/04/23 22:00 90 12/04/23 20:00 88 12/04/23 20:24 97.8 F 87 20 125/72 95 12/04/23 18:00 83 12/04/23 16:00 97 12/04/23 14:00 89 12/04/23 16:00 Room Air 12/04/23 15:15 98.0 F 100 20 127/66 92 12/04/23 15:36 142/94 H 12/04/23 15:20 133/88 Intake/Output Intake/Output: Intake & Output
--- NOTE | 2023-12-05 11:02 | P.PNNP_ITS ---
Progress Note: A&P Assessment and Plan (1) FITO (acute kidney injury): Code(s): N17.9 - Acute kidney failure, unspecified Status: Acute Assessment and Plan: * suspect secondary to infection given fever and pyuria * s/p IVFs and antibiotics * evaluation to date: * renal ultrasound normal * UA concerning for infection * urine electrolytes prerenal * CPK somewhat elevated on admission - follow trend * slow improvement in creatinine * good urine output noted * follow trend of repeat labs and UOP (2) Stage 3b chronic kidney disease: Code(s): N18.32 - Chronic kidney disease, stage 3b Status: Chronic Assessment and Plan: * baseline creatinine runs 1.8 - 2.6mg/dl in the last couple of years * this is secondary to hypertension, obesity, annd MARTÍNEZ * outpatient evaluation significant for proteinuria and hematuria * s/p urological evaluation for hematuria that was unrevealing (3) Urinary tract infection: Code(s): N39.0 - Urinary tract infection, site not specified Status: Acute Assessment and Plan: * admission UA suggestive * urine culture negative (although this was collected AFTER antibiotics were started) * continue supportive therapy (4) Hematuria: Qualifiers: Hematuria type: unspecified type Qualified Code(s): R31.9 - Hematuria, unspecified Code(s): R31.9 - Hematuria, unspecified Status: Acute Assessment and Plan: * chronic issue at baseline * Urology recommendations noted * follow culture data (5) Anemia: Qualifiers: Anemia type: due to chronic kidney disease Chronic kidney disease stage: unspecified stage Qualified Code(s): N18.9 - Chronic kidney disease, unspecified; D63.1 - Anemia in chronic kidney disease Code(s): D64.9 - Anemia, unspecified Status: Acute Assessment and Plan: * H/H relatively stable * likely partly related to known CKD and acute illness * no need for Epogen * follow trend of H/H (6) Essential (primary) hypertension: Code(s): I10 - Essential (primary) hypertension Status: Acute Assessment and Plan: * reasonable control * to start meds but more so for rate control of afib * follow trend of hemodynamics Will continue to follow. Subjective Date/time seen: 12/05/23 11:02 Interval history: Follow-up for acute kidney injury/acute renal failure on chronic kidney disease. Chart reviewed -- assuming care from Dr. Marmolejo; only slight improvement in renal function by AM labs but continues to make good urine output; no apparent distress voiced at the time of my visit; no acute issues/events overnight or earlier this morning. Exam Narrative: General: large but WD/WN male in NAD Heart: normal S1 and S2; no rub Lungs: clear to auscultation Abdomen: soft, nontender, nondistended, positive bowel sounds Extremities: no cyanosis or clubbing; no edema Skin: warm and dry Objective Data Vital Signs Vital Signs: Vital Signs Temp Pulse Resp BP Pulse Ox O2 Del Method 12/05/23 10:16 98.2 F 93 18 121/60 98 12/05/23 09:42 149/99 H 12/05/23 09:42 140/88 12/05/23 08:00 97.7 F 98 20 128/45 L 99 12/05/23 07:44 99.2 F 96 20 125/65 100 12/05/23 06:00 80 12/05/23 04:00 CPAP 12/05/23 04:00
--- NOTE | 2023-12-05 11:07 | ECG_ITS ---
SEE SCANNED COPY FOR CONFIRMED REPORT MTDD
[2023-12-05] MEDS: dilTIAZem HCL 30 MG TABLET PO ×2 (15:01→21:00)
[2023-12-05] MEDS: FERROUS SULFATE 325 MG TABLET DR PO (19:03)
[2023-12-05] MEDS: levoFLOXacin 750 MG TABLET PO (21:00)
[2023-12-05] MEDS: WATER FOR IRRIGATION, STERILE 1,000 ML BOTTLE 1000 ML (21:12)
[2023-12-06] VITALS (21 sets, daily range): BP systolic 118–160; BP diastolic 52–82; PULSE 81–116; RESP 18–28; TEMP 36.4–37.3; O2SAT 92–100
[2023-12-06] MEDS: dilTIAZem HCL 30 MG TABLET PO ×3 (05:54→21:32)
--- NOTE | 2023-12-06 06:01 | PC.NURSE ---
midnight. midline leaking. dressing changed, midline cap tightened, blood return good but continued leaking quit a bit from insertion site. Unable to obtain another IV access. Charge nurse and Dr. Wade notified. Awaiting recommendations from PICC nurse.
[2023-12-06 06:22] LABS: Glucose Point of Care 107 mg/dl (65-105)
--- NOTE | 2023-12-06 07:33 | PM.PNCARD ---
Progress Note: A&P Assessment and Plan (1) Dilated cardiomyopathy: Code(s): I42.0 - Dilated cardiomyopathy Status: Acute Assessment and Plan: Resolved. Had mild systolic dysfunction. 12/02/23 Echo: EF 55-60%, mild LVE, diastolic dysfunction (E/e' 19), mod biatrial enlargement. (2) Morbid (severe) obesity due to excess calories: Code(s): E66.01 - Morbid (severe) obesity due to excess calories Status: Acute (3) Sepsis: Code(s): A41.9 - Sepsis, unspecified organism Status: Acute Assessment and Plan: Probably urosepsis. With fever/chills, elevated WBC. On antibiotics. Managed by hospitalist. Given worse than baseline Cr, may hydrate to improve kidney function. (4) Chronic atrial fibrillation: Code(s): I48.20 - Chronic atrial fibrillation, unspecified Status: Acute Assessment and Plan: In atrial fib now and at times can be very rapid to 200 bpm. Was on Coreg for rate control when in atrial fib. [id number] (no longer have CHF). Was on Warfarin and INR monitored by his PCP. Warfarin on hold due to gross hematuria. Could be on aspirin 325 mg daily as an alternative to Warfarin. Would hold off on anticoagulation until no longer bleeding and OK by urology. Discuss with patient to start on 12/03/23 Sotalol 80 mg daily (given renal function) to keep in sinus rhythm. Check EKG 1-2 hours post dose for next 5 doses. However, in review of patient's chart he has not been in sinus rhythm for many years probably dating back to 2004. He probably has chronic atrial fibrillation. Will stop Sotalol and EKG checks for it. Start Metoprolol Tartate 100 mg BID for rate control with Diltiazem 30 mg PO TID. Subjective Date/time seen: 12/06/23 07:33 Interval history: Denies chest pain or sob. Exam Const: General: cooperative, healthy appearing, comfortable and obese Nutritional Appearance: obese Orientation/consciousness: oriented to person, oriented to place and oriented to time Resp: Auscultation: clear to auscultation bilaterally, no crackles, no rales, no rhonchi and no wheezes Cardio: Rate: regular rate Rhythm: abnormal rhythm Heart sounds: no murmurs Peripheral pulses: dorsalis pedis present Neuro: General: oriented to person, oriented to place and oriented to time Extrem: Right lower extremity: no edema Left lower extremity: no edema Objective Data Vital Signs Vital Signs: Vital Signs - 24 hr 12/05/23 07:44 12/05/23 08:00 12/05/23 09:42 Temperature 99.2 F 97.7 F Pulse Rate 96 98 Respiratory Rate 20 20 Blood Pressure 125/65 128/45 L 140/88 Pulse Oximetry 100 99 Oxygen Delivery 12/05/23 09:42 12/05/23 10:16 12/05/23 08:00 Temperature Pulse Rate 93 Respiratory Rate Blood Pressure 149/99 H Pulse Oximetry Oxygen Delivery Room Air 12/05/23 11:52 12/05/23 12:00 12/05/23 08:00 Temperature 98.2 F Pulse Rate 93 109 H Respiratory Rate 18 Blood Pressure 121/60 Pulse Oximetry 98 Oxygen Delivery Room Air 12/05/23 12:00 12/05/23 10:00 12/05/23 15:43 Temperature 97.9 F Pulse Rate 109 H 106 H 57 L Respiratory Rate 20 Blood Pressure 113/73 Pulse Oximetry 96 Oxygen Delivery 12/05/23 16:00 12/05/23 14:00 12/05/23 16:00 Temperature Pulse Rate 97 89 Respiratory Rate Blood Pressure Pulse Oximetry Oxygen Delivery Room Air 12/05/23 18:00 12/05/23 20:00 12/06/23 00:00 Temperature Pulse Rate 83 83 83 Respiratory Rate 20 20 Blood Pressure Pulse Oximetry 96 96 Oxygen Delivery Room Air Room Air 12/06/23 01:06 12/05/23 20:00 12/05/23 22:00 Temperature 97.9 F Pulse Rate 94 89 103 H Respiratory Rate 20 Blood Pressure 132/66 Pulse Oximetry 100 Oxygen Delivery 12/06/23 00:00 12/05/23 23:15 12/06/23 02:44 Temperature Pulse Rate 87 91 93 Respiratory Rate Blood Pressure Pulse Oximetry 97 Oxygen Delivery 12/06/23 04:00 12/06/23 06:0
[2023-12-06] MEDS: FERROUS SULFATE 325 MG TABLET DR PO ×2 (08:51→16:41)
[2023-12-06] MEDS: MUPIROCIN 2% OINT 22 GM TUBE 1 APPLIC EACH NARE ×2 (08:51→21:38)
[2023-12-06] MEDS: METOPROLOL TARTRATE 50 MG TAB 100 MG PO ×2 (08:51→21:32)
[2023-12-06] MEDS: SALINE LOCK FLUSH 10 ML IV PUSH ×2 (08:57→14:53)
[2023-12-06 09:25] LABS: Hematocrit 32.3 % (42.0-52.0); Hemoglobin 9.9 g/dL (14.0-18.0); Mean Corpuscular HGB Conc 30.7 g/dl (32-36); Mean Corpuscular Hemoglobin 27.6 pg (26-34); Mean Platelet Volume 11.1 fl (7.4-10.4); Platelet Count Result 128 k/mm3 (150-375); Red Blood Count 3.59 M/mm3 (4.6-6.20); Red Cell Distribution Width 14.7 % (11.5-14.5); White Blood Count 9.9 K/mm3 (4.5-10.0)
[2023-12-06 09:41] LABS: Anion Gap 7 mmol/L (4-12); Blood Urea Nitrogen 64 mg/dL (9-20); Calcium 8.2 mg/dL (8.4-10.2); Carbon Dioxide 22 mmol/L (22-30); Chloride 114 mmol/L (98-107); Estimated CRCL calculation 65 ml/min; Estimated Glomerular Filt Rate 21; Glucose 105 mg/dL (65-110); Magnesium 2.2 mg/dL (1.6-2.3); Sodium 143 mmol/L (137-145)
--- NOTE | 2023-12-06 09:55 | PC.NURSE ---
Dr. Romano notified of Midline malfunction. Vascular executive chairman of the board notified of need for new Peripheral IV.
--- NOTE | 2023-12-06 10:05 | PM.IMPN ---
Progress Note: A&P Assessment and Plan (1) Sepsis: Code(s): A41.9 - Sepsis, unspecified organism Status: Acute (2) PAF (paroxysmal atrial fibrillation): Code(s): I48.0 - Paroxysmal atrial fibrillation Status: Acute (3) Orthostatic lightheadedness: Code(s): R42 - Dizziness and giddiness Status: Acute (4) Acute renal failure superimposed on stage 3 chronic kidney disease: Code(s): N17.9 - Acute kidney failure, unspecified; N18.30 - Chronic kidney disease, stage 3 unspecified Status: Acute (5) Congestive heart failure: Qualifiers: Heart failure chronicity: acute Heart failure type: combined systolic and diastolic Qualified Code(s): I50.41 - Acute combined systolic (congestive) and diastolic (congestive) heart failure Code(s): I50.9 - Heart failure, unspecified Status: Acute (6) Elevated troponin: Code(s): R79.89 - Other specified abnormal findings of blood chemistry Status: Acute (7) Anemia: Qualifiers: Anemia type: due to chronic kidney disease Chronic kidney disease stage: unspecified stage Qualified Code(s): N18.9 - Chronic kidney disease, unspecified; D63.1 - Anemia in chronic kidney disease Code(s): D64.9 - Anemia, unspecified Status: Acute (8) Morbid (severe) obesity due to excess calories: Code(s): E66.01 - Morbid (severe) obesity due to excess calories Status: Acute (9) Atrial fibrillation: Qualifiers: Atrial fibrillation type: permanent Qualified Code(s): I48.21 - Permanent atrial fibrillation Code(s): I48.91 - Unspecified atrial fibrillation Status: Acute Plan A very pleasant 43-year-old male with a past medical history morbid obesity BMI 87, atrial fibrillation since 2004 on warfarin, hypertension, dilated cardiomyopathy, [id number] diabetes mellitus, MARTÍNEZ on CPAP, panic disorder, history of hemorrhagic cystitis follows with [facility], chronic kidney disease presents with lightheadedness upon standing up with associated complaint of shortness of breath on exertion. Found to be afebrile tachycardia tachypneic in [place] ER. Soft blood pressure 109/58 and leukocytosis. Noted to have hematuria on arrival. Delgadillo catheter placement unsuccessful. On 12/05, patient denies any symptomatology. His serum creatinine now improved. Continue normal saline. He has hyperchloremia which is likely due to the iatrogenic confusion. Potassium is 3.0 will replace with 40 mEq of KCl p.o.. Magnesium okay. Check labs in the morning again. Cardiology recommendations appreciated. He is being started on metoprolol and Cardizem. Continue telemetry and monitor blood pressure. Urine culture final with no growth however this was taken after antibiotics were administered. Who Proteus mirabilis and based on the sensitivities we will continue to treat with levofloxacin. Oncology recommendations appreciated as well. His platelet count is stable Acute renal failure on chronic kidney disease, nonoliguric -baseline creatinine fluctuates between 1.8 and 3.8 -on admission his creatinine was 1.8 and now 3.7, now 4+. Now coming down. Continue normal saline. Eliot a any further Nephrology recommendations. -renal ultrasound without hydronephrosis Sepsis -afebrile on admission along with leukocytosis which has resolved. -unclear source. Chest x-ray on admission demonstrating minimal interstitial edema. Urinalysis obtained on 12/02 which is abnormal her urine culture was for some reason not conducted. Again ordered a urine culture -on admission he has received cefepime and vancomycin. MRSA PCR is positive. However, his sepsis is resolved. Urine cultures pending although unreliable since this was taken 1-2 days after he started antibiotics. In the past he grew Proteus mirabilis sensitive to cefepime so we will discontinue vancomycin and monitor. -blood cultures pending Paroxysmal atrial fibr
--- NOTE | 2023-12-06 10:38 | PM.PNNEP ---
Progress Note: A&P Assessment and Plan (1) FITO (acute kidney injury): Code(s): N17.9 - Acute kidney failure, unspecified Status: Acute Assessment and Plan: slow improvement noted suspect secondary to infection given fever and pyuria s/p IVFs and antibiotics evaluation to date: renal ultrasound normal UA concerning for infection urine electrolytes prerenal CPK somewhat elevated on admission - follow trend good urine output noted follow trend of repeat labs and UOP (2) Stage 3b chronic kidney disease: Code(s): N18.32 - Chronic kidney disease, stage 3b Status: Chronic Assessment and Plan: baseline creatinine runs 1.8 - 2.6mg/dl in the last couple of years this is secondary to hypertension, obesity, annd MARTÍNEZ outpatient evaluation significant for proteinuria and hematuria s/p urological evaluation (done as an outpatient in the past) for hematuria that was unrevealing (3) Urinary tract infection: Code(s): N39.0 - Urinary tract infection, site not specified Status: Acute Assessment and Plan: admission UA suggestive urine culture negative (although this was collected AFTER antibiotics were started) continue supportive therapy (4) Hematuria: Qualifiers: Hematuria type: unspecified type Qualified Code(s): R31.9 - Hematuria, unspecified Code(s): R31.9 - Hematuria, unspecified Status: Acute Assessment and Plan: chronic issue at baseline Urology recommendations noted follow culture data (5) Anemia: Qualifiers: Anemia type: due to chronic kidney disease Chronic kidney disease stage: unspecified stage Qualified Code(s): N18.9 - Chronic kidney disease, unspecified; D63.1 - Anemia in chronic kidney disease Code(s): D64.9 - Anemia, unspecified Status: Acute Assessment and Plan: H/H relatively stable likely partly related to known CKD and acute illness no need for Epogen follow trend of H/H (6) Essential (primary) hypertension: Code(s): I10 - Essential (primary) hypertension Status: Acute Assessment and Plan: reasonable control to start meds but more so for rate control of afib follow trend of hemodynamics Will continue to follow. Subjective Date/time seen: 12/06/23 10:38 Interval history: Follow-up for acute kidney injury/acute renal failure on chronic kidney disease. Renal function doing better by trend of labs; continues to make good urine output as well; overall, states he is feeling better as well; no apparent distress voiced at the time of my visit; no issues/events overnight or earlier this morning. Exam Narrative: General: large but WD/WN male in NAD Heart: normal S1 and S2; no rub Lungs: clear to auscultation Abdomen: soft, nontender, nondistended, positive bowel sounds Extremities: no cyanosis or clubbing; no edema Skin: warm and intact Objective Data Vital Signs Vital Signs: Vital Signs Temp Pulse Resp BP Pulse Ox O2 Del Method 12/06/23 10:00 98.3 F 93 28 H 148/54 H 96 12/06/23 08:00 94 12/06/23 08:51 98 12/06/23 08:00 99.1 F 99 20 129/62 97 12/06/23 06:00 116 H 12/06/23 04:00 98 12/06/23 06:04 97.6 F 111 H 20 160/74 H 93 12/06/23 04:00 93 20 100 Room Air 12/06/23 02:44 93 12/05/23 23:15 91 97 12/06/23 00:00 87 12/05/23 22:00 103 H 12/05/23 20:00 89 12/06/23 01:06 97.9 F 94 20 132/66 100 12/06/23 00:00 83 20 96 Room Air 12/05/23 20:00 83 20 96 Room Air 12/05/23 18:00 83 12/05/23 16:00 89 12/05/23 14:00 97 12/05/23 16:00 Room Air 12/05/23 15:43 97.9 F 57 L 20 113/73 96 Intake/Output Intake/Output: Intake & Output 12/03/23 12/04/23 12/05/23 12/06/23 23:59 23:59 23:59 23:59 Intake Total 5050 4670 5230 2990 Output Total 8252 1736 7241 8389
--- NOTE | 2023-12-06 10:38 | P.PNNP_ITS ---
Progress Note: A&P Assessment and Plan (1) FITO (acute kidney injury): Code(s): N17.9 - Acute kidney failure, unspecified Status: Acute Assessment and Plan: * slow improvement noted * suspect secondary to infection given fever and pyuria * s/p IVFs and antibiotics * evaluation to date: * renal ultrasound normal * UA concerning for infection * urine electrolytes prerenal * CPK somewhat elevated on admission - follow trend * good urine output noted * follow trend of repeat labs and UOP (2) Stage 3b chronic kidney disease: Code(s): N18.32 - Chronic kidney disease, stage 3b Status: Chronic Assessment and Plan: * baseline creatinine runs 1.8 - 2.6mg/dl in the last couple of years * this is secondary to hypertension, obesity, annd MARTÍNEZ * outpatient evaluation significant for proteinuria and hematuria * s/p urological evaluation (done as an outpatient in the past) for hematuria that was unrevealing (3) Urinary tract infection: Code(s): N39.0 - Urinary tract infection, site not specified Status: Acute Assessment and Plan: * admission UA suggestive * urine culture negative (although this was collected AFTER antibiotics were started) * continue supportive therapy (4) Hematuria: Qualifiers: Hematuria type: unspecified type Qualified Code(s): R31.9 - Hematuria, unspecified Code(s): R31.9 - Hematuria, unspecified Status: Acute Assessment and Plan: * chronic issue at baseline * Urology recommendations noted * follow culture data (5) Anemia: Qualifiers: Anemia type: due to chronic kidney disease Chronic kidney disease stage: unspecified stage Qualified Code(s): N18.9 - Chronic kidney disease, unspecified; D63.1 - Anemia in chronic kidney disease Code(s): D64.9 - Anemia, unspecified Status: Acute Assessment and Plan: * H/H relatively stable * likely partly related to known CKD and acute illness * no need for Epogen * follow trend of H/H (6) Essential (primary) hypertension: Code(s): I10 - Essential (primary) hypertension Status: Acute Assessment and Plan: * reasonable control * to start meds but more so for rate control of afib * follow trend of hemodynamics Will continue to follow. Subjective Date/time seen: 12/06/23 10:38 Interval history: Follow-up for acute kidney injury/acute renal failure on chronic kidney disease. Renal function doing better by trend of labs; continues to make good urine output as well; overall, states he is feeling better as well; no apparent distress voiced at the time of my visit; no issues/events overnight or earlier this morning. Exam Narrative: General: large but WD/WN male in NAD Heart: normal S1 and S2; no rub Lungs: clear to auscultation Abdomen: soft, nontender, nondistended, positive bowel sounds Extremities: no cyanosis or clubbing; no edema Skin: warm and intact Objective Data Vital Signs Vital Signs: Vital Signs Temp Pulse Resp BP Pulse Ox O2 Del Method 12/06/23 10:00 98.3 F 93 28 H 148/54 H 96 12/06/23 08:00 94 12/06/23 08:51 98 12/06/23 08:00 99.1 F 99 20 129/62 97 12/06/23 06:00 116 H 12/06/23 04:00 98 12/06/23 06:04 97.6 F 111 H 20 160/74 H 9
--- NOTE | 2023-12-06 11:42 | PC.NURSE ---
IVF resumed via new peripheral IV.
[2023-12-06] MEDS: POTASSIUM CHLORIDE 20 MEQ ER TABLET 40 MEQ PO (11:44)
[2023-12-06] MEDS: SODIUM CHLORIDE 0.9% IV 1,000 ML 100 ML IV CONT (16:40)
[2023-12-07] VITALS (19 sets, daily range): BP systolic 116–146; BP diastolic 53–90; PULSE 79–100; RESP 18–20; TEMP 36.4–37.2; O2SAT 93–96
[2023-12-07] MEDS: SALINE LOCK FLUSH 10 ML IV PUSH ×3 (00:06→17:49)
[2023-12-07] MEDS: SODIUM CHLORIDE 0.9% IV 1,000 ML 100 ML IV CONT ×3 (03:11→23:21)
[2023-12-07] MEDS: dilTIAZem HCL 30 MG TABLET PO (05:42)
[2023-12-07 05:53] LABS: Hematocrit 30.9 % (42.0-52.0); Hemoglobin 9.8 g/dL (14.0-18.0); Mean Corpuscular HGB Conc 31.7 g/dl (32-36); Mean Corpuscular Hemoglobin 27.9 pg (26-34); Mean Platelet Volume 10.4 fl (7.4-10.4); Platelet Count Result 156 k/mm3 (150-375); Red Blood Count 3.51 M/mm3 (4.6-6.20); Red Cell Distribution Width 14.8 % (11.5-14.5); White Blood Count 10.7 K/mm3 (4.5-10.0)
[2023-12-07 06:05] LABS: INR 1.6; Prothrombin Time 19.7 Seconds (11.1-14.7)
[2023-12-07 06:06] LABS: Anion Gap 9 mmol/L (4-12); Blood Urea Nitrogen 59 mg/dL (9-20); Calcium 8.3 mg/dL (8.4-10.2); Carbon Dioxide 19 mmol/L (22-30); Chloride 116 mmol/L (98-107); Estimated CRCL calculation 69 ml/min; Estimated Glomerular Filt Rate 23; Glucose 104 mg/dL (65-110); Potassium 3.2 mmol/L (3.4-5.0); Sodium 144 mmol/L (137-145)
--- NOTE | 2023-12-07 07:41 | PM.PNCARD ---
Progress Note: A&P Assessment and Plan (1) Dilated cardiomyopathy: Code(s): I42.0 - Dilated cardiomyopathy Status: Acute Assessment and Plan: Resolved. Had mild systolic dysfunction. 12/02/23 Echo: EF 55-60%, mild LVE, diastolic dysfunction (E/e' 19), mod biatrial enlargement. (2) Morbid (severe) obesity due to excess calories: Code(s): E66.01 - Morbid (severe) obesity due to excess calories Status: Acute (3) Sepsis: Code(s): A41.9 - Sepsis, unspecified organism Status: Acute Assessment and Plan: Probably urosepsis. With fever/chills, elevated WBC. On antibiotics. Managed by hospitalist. Given worse than baseline Cr, may hydrate to improve kidney function. (4) Chronic atrial fibrillation: Code(s): I48.20 - Chronic atrial fibrillation, unspecified Status: Acute Assessment and Plan: In atrial fib now and at times can be very rapid to 200 bpm. Was on Coreg for rate control when in atrial fib. [id number] (no longer have CHF). Was on Warfarin and INR monitored by his PCP. Warfarin on hold due to gross hematuria. Could be on aspirin 325 mg daily as an alternative to Warfarin. Would hold off on anticoagulation until no longer bleeding and OK by urology. Discuss with patient to start on 12/03/23 Sotalol 80 mg daily (given renal function) to keep in sinus rhythm. Check EKG 1-2 hours post dose for next 5 doses. However, in review of patient's chart he has not been in sinus rhythm for many years probably dating back to 2004. He probably has chronic atrial fibrillation. Stopped Sotalol and stopped EKG checks for it. Started on Metoprolol Tartate 100 mg BID for rate control with change Diltiazem 60 mg PO BID. Start aspirin EC 325 mg daily if OK with urology. Subjective Date/time seen: 12/07/23 07:41 Interval history: Denies chest pain or sob. Exam Const: General: cooperative, healthy appearing, comfortable and obese Nutritional Appearance: obese Orientation/consciousness: oriented to person, oriented to place and oriented to time Resp: Auscultation: clear to auscultation bilaterally, no crackles, no rales, no rhonchi and no wheezes Cardio: Rate: regular rate Rhythm: abnormal rhythm Heart sounds: no murmurs Peripheral pulses: dorsalis pedis present Neuro: General: oriented to person, oriented to place and oriented to time Extrem: Right lower extremity: no edema Left lower extremity: no edema Objective Data Vital Signs Vital Signs: Vital Signs - 24 hr 12/06/23 08:00 12/06/23 08:51 12/06/23 08:00 Temperature 99.1 F Pulse Rate 99 98 94 Respiratory Rate 20 Blood Pressure 129/62 Pulse Oximetry 97 Oxygen Delivery 12/06/23 10:00 12/06/23 08:00 12/06/23 11:03 Temperature 98.3 F 98.3 F Pulse Rate 107 H 93 93 Respiratory Rate 28 H 28 H Blood Pressure 148/54 H 148/54 H Pulse Oximetry 96 96 Oxygen Delivery 12/06/23 11:02 12/06/23 11:02 12/06/23 12:00 Temperature Pulse Rate 94 Respiratory Rate Blood Pressure 127/82 135/82 Pulse Oximetry Oxygen Delivery 12/06/23 14:00 12/06/23 16:00 12/06/23 16:00 Temperature 98.0 F Pulse Rate 93 94 89 Respiratory Rate 24 H Blood Pressure 118/67 Pulse Oximetry 92 Oxygen Delivery 12/06/23 18:00 12/06/23 20:21 12/06/23 20:00 Temperature 97.6 F Pulse Rate 85 94 85 Respiratory Rate 19 Blood Pressure 131/72 Pulse Oximetry 94 Oxygen Delivery 12/06/23 21:32 12/06/23 20:00 12/06/23 22:00 Temperature Pulse Rate 95 95 110 H Respiratory Rate 19 Blood Pressure Pulse Oximetry 94 Oxygen Delivery Room Air 12/06/23 23:50 12/06/23 23:54 12/07/23 00:00 Temperature 97.6 F Pulse Rate 81 81 89 Respiratory Rate 18 18 Blood Pressure 141/52 H Pulse Oximetry 94 94 Oxygen Delivery Room Air 12/07/23 03:52 12/07/23 04:21 12/07/23 02:00 Temperature 97.6 F Pulse Rate 89 85 81 Respiratory Rate 18 18 Blood Pressure
[2023-12-07] MEDS: MUPIROCIN 2% OINT 22 GM TUBE 1 APPLIC EACH NARE ×2 (09:26→20:39)
[2023-12-07] MEDS: METOPROLOL TARTRATE 50 MG TAB 100 MG PO ×2 (09:27→20:39)
[2023-12-07] MEDS: FERROUS SULFATE 325 MG TABLET DR PO ×2 (09:27→17:51)
[2023-12-07] MEDS: dilTIAZem HCL 60 MG TABLET PO ×2 (09:27→20:39)
--- NOTE | 2023-12-07 09:46 | PM.IMPN ---
Progress Note: A&P Assessment and Plan (1) Sepsis: Code(s): A41.9 - Sepsis, unspecified organism Status: Acute (2) PAF (paroxysmal atrial fibrillation): Code(s): I48.0 - Paroxysmal atrial fibrillation Status: Acute (3) Orthostatic lightheadedness: Code(s): R42 - Dizziness and giddiness Status: Acute (4) Acute renal failure superimposed on stage 3 chronic kidney disease: Code(s): N17.9 - Acute kidney failure, unspecified; N18.30 - Chronic kidney disease, stage 3 unspecified Status: Acute (5) Congestive heart failure: Qualifiers: Heart failure chronicity: acute Heart failure type: combined systolic and diastolic Qualified Code(s): I50.41 - Acute combined systolic (congestive) and diastolic (congestive) heart failure Code(s): I50.9 - Heart failure, unspecified Status: Acute (6) Elevated troponin: Code(s): R79.89 - Other specified abnormal findings of blood chemistry Status: Acute (7) Anemia: Qualifiers: Anemia type: due to chronic kidney disease Chronic kidney disease stage: unspecified stage Qualified Code(s): N18.9 - Chronic kidney disease, unspecified; D63.1 - Anemia in chronic kidney disease Code(s): D64.9 - Anemia, unspecified Status: Acute (8) Morbid (severe) obesity due to excess calories: Code(s): E66.01 - Morbid (severe) obesity due to excess calories Status: Acute (9) Atrial fibrillation: Qualifiers: Atrial fibrillation type: permanent Qualified Code(s): I48.21 - Permanent atrial fibrillation Code(s): I48.91 - Unspecified atrial fibrillation Status: Acute Plan A very pleasant 43-year-old male with a past medical history morbid obesity BMI 87, atrial fibrillation since 2004 on warfarin, hypertension, dilated cardiomyopathy, [id number] diabetes mellitus, MARTÍNEZ on CPAP, panic disorder, history of hemorrhagic cystitis follows with [facility] Urology, chronic kidney disease presents with lightheadedness upon standing up with associated complaint of shortness of breath on exertion. Found to be afebrile tachycardia tachypneic in [place] ER. Soft blood pressure 109/58 and leukocytosis. Noted to have hematuria on arrival. Delgadillo catheter placement unsuccessful. On 12/05, patient denies any symptomatology. His serum creatinine now improved. Continue normal saline. He has hyperchloremia which is likely due to the iatrogenic confusion. Potassium is 3.0 will replace with 40 mEq of KCl p.o.. Magnesium okay. Check labs in the morning again. Cardiology recommendations appreciated. He is being started on metoprolol and Cardizem. Continue telemetry and monitor blood pressure. Urine culture final with no growth however this was taken after antibiotics were administered. Who Proteus mirabilis and based on the sensitivities we will continue to treat with levofloxacin. Oncology recommendations appreciated as well. His platelet count is stable 12/06 update: Continue levofloxacin. Continue IV fluids and trend serum creatinine. Replace potassium again. [facility]. Plan to start aspirin 325 mg p.o. q.day on or prior to discharge. Hopefully home tomorrow. Acute renal failure on chronic kidney disease, nonoliguric -baseline creatinine fluctuates between 1.8 and 3.8 -on admission his creatinine was 1.8 and now 3.7, now 4+. Now coming down. Continue normal saline. Eliot a any further Nephrology recommendations. -renal ultrasound without hydronephrosis Sepsis -afebrile on admission along with leukocytosis which has resolved. -unclear source. Chest x-ray on admission demonstrating minimal interstitial edema. Urinalysis obtained on 12/02 which is abnormal her urine culture was for some reason not conducted. Again ordered a urine culture -on admission he has received cefepime and vancomycin. MRSA PCR is positive. However, his sepsis is resolved. Urine cultures pending al
--- NOTE | 2023-12-07 12:25 | P.PNNP_ITS ---
Progress Note: A&P Assessment and Plan (1) FITO (acute kidney injury): Code(s): N17.9 - Acute kidney failure, unspecified Status: Acute Assessment and Plan: * slow improvement noted * suspect secondary to infection given fever and pyuria * s/p IVFs and antibiotics * evaluation to date: * renal ultrasound normal * UA concerning for infection * urine electrolytes prerenal * CPK somewhat elevated on admission - follow trend * good urine output noted * follow trend of repeat labs and UOP (2) Stage 3b chronic kidney disease: Code(s): N18.32 - Chronic kidney disease, stage 3b Status: Chronic Assessment and Plan: * baseline creatinine runs 1.8 - 2.6mg/dl in the last couple of years * this is secondary to hypertension, obesity, annd MARTÍNEZ * outpatient evaluation significant for proteinuria and hematuria * s/p urological evaluation (done as an outpatient in the past) for hematuria that was unrevealing (3) Urinary tract infection: Code(s): N39.0 - Urinary tract infection, site not specified Status: Acute Assessment and Plan: * admission UA suggestive * urine culture negative (although this was collected AFTER antibiotics were started) * continue supportive therapy (4) Hematuria: Qualifiers: Hematuria type: unspecified type Qualified Code(s): R31.9 - Hematuria, unspecified Code(s): R31.9 - Hematuria, unspecified Status: Acute Assessment and Plan: * chronic issue at baseline * Urology recommendations noted * follow culture data (5) Anemia: Qualifiers: Anemia type: due to chronic kidney disease Chronic kidney disease stage: unspecified stage Qualified Code(s): N18.9 - Chronic kidney disease, unspecified; D63.1 - Anemia in chronic kidney disease Code(s): D64.9 - Anemia, unspecified Status: Acute Assessment and Plan: * H/H relatively stable * likely partly related to known CKD and acute illness * no need for Epogen * follow trend of H/H (6) Essential (primary) hypertension: Code(s): I10 - Essential (primary) hypertension Status: Acute Assessment and Plan: * reasonable control * to start meds but more so for rate control of afib * follow trend of hemodynamics Not opposed to discharge from renal perspective if renal function continues to improved -- repeat labs can be done as an outpatient to ensure renal function continues to improve/stabilize. Will continue to follow. Subjective Date/time seen: 12/07/23 12:25 Interval history: Follow-up for acute kidney injury/acute renal failure on chronic kidney disease. Continues to make slow and steady improvement in general; renal function continues to slowly improve with current therapy/interventions; no apparent di stress noted; no issues/events overnight or earlier this morning. Exam Narrative: General: large but WD/WN male in NAD Heart: normal S1 and S2; no rub Lungs: clear to auscultation Abdomen: soft, nontender, nondistended, positive bowel sounds Extremities: no cyanosis or clubbing; no edema Skin: no rash Objective Data Vital Signs Vital Signs: Vital Signs Temp Pulse Resp BP Pulse Ox O2 Del Method 12/07/23 12:00 86 12/07/23 11:38 98.9 F 89 20 116/53 L 95 12/07/23 10:00 87 12/06
--- NOTE | 2023-12-07 12:25 | PM.PNNEP ---
Progress Note: A&P Assessment and Plan (1) FITO (acute kidney injury): Code(s): N17.9 - Acute kidney failure, unspecified Status: Acute Assessment and Plan: slow improvement noted suspect secondary to infection given fever and pyuria s/p IVFs and antibiotics evaluation to date: renal ultrasound normal UA concerning for infection urine electrolytes prerenal CPK somewhat elevated on admission - follow trend good urine output noted follow trend of repeat labs and UOP (2) Stage 3b chronic kidney disease: Code(s): N18.32 - Chronic kidney disease, stage 3b Status: Chronic Assessment and Plan: baseline creatinine runs 1.8 - 2.6mg/dl in the last couple of years this is secondary to hypertension, obesity, annd MARTÍNEZ outpatient evaluation significant for proteinuria and hematuria s/p urological evaluation (done as an outpatient in the past) for hematuria that was unrevealing (3) Urinary tract infection: Code(s): N39.0 - Urinary tract infection, site not specified Status: Acute Assessment and Plan: admission UA suggestive urine culture negative (although this was collected AFTER antibiotics were started) continue supportive therapy (4) Hematuria: Qualifiers: Hematuria type: unspecified type Qualified Code(s): R31.9 - Hematuria, unspecified Code(s): R31.9 - Hematuria, unspecified Status: Acute Assessment and Plan: chronic issue at baseline Urology recommendations noted follow culture data (5) Anemia: Qualifiers: Anemia type: due to chronic kidney disease Chronic kidney disease stage: unspecified stage Qualified Code(s): N18.9 - Chronic kidney disease, unspecified; D63.1 - Anemia in chronic kidney disease Code(s): D64.9 - Anemia, unspecified Status: Acute Assessment and Plan: H/H relatively stable likely partly related to known CKD and acute illness no need for Epogen follow trend of H/H (6) Essential (primary) hypertension: Code(s): I10 - Essential (primary) hypertension Status: Acute Assessment and Plan: reasonable control to start meds but more so for rate control of afib follow trend of hemodynamics Not opposed to discharge from renal perspective if renal function continues to improved -- repeat labs can be done as an outpatient to ensure renal function continues to improve/stabilize. Will continue to follow. Subjective Date/time seen: 12/07/23 12:25 Interval history: Follow-up for acute kidney injury/acute renal failure on chronic kidney disease. Continues to make slow and steady improvement in general; renal function continues to slowly improve with current therapy/interventions; no apparent distress noted; no issues/events overnight or earlier this morning. Exam Narrative: General: large but WD/WN male in NAD Heart: normal S1 and S2; no rub Lungs: clear to auscultation Abdomen: soft, nontender, nondistended, positive bowel sounds Extremities: no cyanosis or clubbing; no edema Skin: no rash Objective Data Vital Signs Vital Signs: Vital Signs Temp Pulse Resp BP Pulse Ox O2 Del Method 12/07/23 12:00 86 12/07/23 11:38 98.9 F 89 20 116/53 L 95 12/07/23 10:00 87 12/07/23 08:00 Room Air 12/07/23 08:00 88 12/07/23 10:13 140/90 12/07/23 10:13 135/86 12/07/23 08:00 97.5 F L 88 20 146/72 H 93 12/07/23 07:53 98.6 F 94 20 125/62 96 12/07/23 06:22 84 12/07/23 04:00 79 12/07/23 02:00 81 12/07/23 04:21 97.6 F 85 18 143/68 H 95 12/07/23 03:52 89 18 94 Room Air 12/07/23 00:00 89 12/06/23 23:54 81 18 94 Room Air 12/06/23 23:50 97.6 F 81 18 141/52 H 94 12/06/23 22:00 110 H 12/06/23 20:00 95 19 94 Room Air 12/06/23 21:32 95 12/06/23 20:00 85 12/06/23 20:21 97.6 F 94
[2023-12-07] MEDS: POTASSIUM CHLORIDE 20 MEQ ER TABLET 40 MEQ PO (14:48)
[2023-12-07] MEDS: levoFLOXacin 750 MG TABLET PO (20:39)
[2023-12-08] VITALS (10 sets, daily range): BP systolic 121–144; BP diastolic 63–94; PULSE 74–111; RESP 16–28; TEMP 36.3–36.9; O2SAT 97–100
[2023-12-08 04:58] LABS: Basophils Percent Auto 0.4 % (0.2-1.2); Eosinophils Absolute Auto 0.2 K/mm3 (0-0.3); Eosinophils Percent Auto 2.3 % (0-4.4); Hemoglobin 9.5 g/dL (14.0-18.0); Immature Granulocyte Absolute 0.15 K/mm3 (0.00-0.031); Immature Granulocyte Percent A 1.8 % (0-0.5); Lymphocytes Percent Auto 17.5 % (18.3-44.2); Mean Corpuscular HGB Conc 30.6 g/dl (32-36); Mean Corpuscular Hemoglobin 27.2 pg (26-34); Mean Corpuscular Volume 88.8 fl (80-100); Mean Platelet Volume 11.6 fl (7.4-10.4); Monocytes Absolute Auto 0.7 K/mm3 (0.1-0.6); Monocytes Percent Auto 8.3 % (2.6-8.5); Neutrophils Percent Auto 69.7 % (45.5-73.1); Platelet Count Result 143 k/mm3 (150-375); Red Blood Count 3.49 M/mm3 (4.6-6.20); Red Cell Distribution Width 14.9 % (11.5-14.5); White Blood Count 8.6 K/mm3 (4.5-10.0)
[2023-12-08 05:14] LABS: Anion Gap 8 mmol/L (4-12); Blood Urea Nitrogen 52 mg/dL (9-20); Calcium 8.4 mg/dL (8.4-10.2); Carbon Dioxide 21 mmol/L (22-30); Chloride 116 mmol/L (98-107); Estimated CRCL calculation 77 ml/min; Estimated Glomerular Filt Rate 26; Glucose 98 mg/dL (65-110); Magnesium 1.9 mg/dL (1.6-2.3); Sodium 145 mmol/L (137-145)
[2023-12-08 05:16] LABS: INR 1.5; Prothrombin Time 19.2 Seconds (11.1-14.7)
[2023-12-08 05:38] LABS: Procalcitonin 1.2 ng/mL
[2023-12-08] MEDS: POTASSIUM CHLORIDE 20 MEQ ER TABLET 40 MEQ PO (06:54)
--- NOTE | 2023-12-08 08:00 | PM.PNCARD ---
Progress Note: A&P Assessment and Plan (1) Dilated cardiomyopathy: Code(s): I42.0 - Dilated cardiomyopathy Status: Acute Assessment and Plan: Resolved. Had mild systolic dysfunction. 12/02/23 Echo: EF 55-60%, mild LVE, diastolic dysfunction (E/e' 19), mod biatrial enlargement. (2) Morbid (severe) obesity due to excess calories: Code(s): E66.01 - Morbid (severe) obesity due to excess calories Status: Acute (3) Sepsis: Code(s): A41.9 - Sepsis, unspecified organism Status: Acute Assessment and Plan: Probably urosepsis. With fever/chills, elevated WBC. On antibiotics. Managed by hospitalist. Given worse than baseline Cr, may hydrate to improve kidney function. (4) Chronic atrial fibrillation: Code(s): I48.20 - Chronic atrial fibrillation, unspecified Status: Acute Assessment and Plan: In atrial fib now and at times can be very rapid to 200 bpm. Was on Coreg for rate control when in atrial fib. [id number] (no longer have CHF). Was on Warfarin and INR monitored by his PCP. Warfarin on hold due to gross hematuria. Could be on aspirin 325 mg daily as an alternative to Warfarin. Would hold off on anticoagulation until no longer bleeding and OK by urology. Discuss with patient to start on 12/03/23 Sotalol 80 mg daily (given renal function) to keep in sinus rhythm. Check EKG 1-2 hours post dose for next 5 doses. However, in review of patient's chart he has not been in sinus rhythm for many years probably dating back to 2004. He probably has chronic atrial fibrillation. Stopped Sotalol and stopped EKG checks for it. On Metoprolol Tartate 100 mg BID and Diltiazem 60 mg PO BID for rate control. On aspirin EC 325 mg daily for cardioembolism prevention. Will sign off. Please call with any questions. Have him f/u with me in 1-2 weeks upond discharge.. Subjective Date/time seen: 12/08/23 08:00 Interval history: Denies chest pain or sob. Exam Const: General: cooperative, healthy appearing, comfortable and obese Nutritional Appearance: obese Orientation/consciousness: oriented to person, oriented to place and oriented to time Resp: Auscultation: clear to auscultation bilaterally, no crackles, no rales, no rhonchi and no wheezes Cardio: Rate: regular rate Rhythm: abnormal rhythm Heart sounds: no murmurs Peripheral pulses: dorsalis pedis present Neuro: General: oriented to person, oriented to place and oriented to time Extrem: Right lower extremity: no edema Left lower extremity: no edema Objective Data Vital Signs Vital Signs: Vital Signs - 24 hr 12/07/23 10:13 12/07/23 10:13 12/07/23 10:00 Temperature Pulse Rate 87 Respiratory Rate Blood Pressure 135/86 140/90 Pulse Oximetry Oxygen Delivery 12/07/23 11:38 12/07/23 12:00 12/07/23 14:00 Temperature 98.9 F Pulse Rate 89 86 94 Respiratory Rate 20 Blood Pressure 116/53 L Pulse Oximetry 95 Oxygen Delivery 12/07/23 16:00 12/07/23 16:00 12/07/23 18:00 Temperature 98.6 F Pulse Rate 94 97 93 Respiratory Rate 20 Blood Pressure 135/69 Pulse Oximetry 95 Oxygen Delivery 12/07/23 20:39 12/07/23 20:00 12/07/23 20:00 Temperature Pulse Rate 100 95 Respiratory Rate Blood Pressure Pulse Oximetry Oxygen Delivery Room Air 12/07/23 22:00 12/07/23 23:01 12/08/23 00:00 Temperature 97.3 F L Pulse Rate 80 84 95 Respiratory Rate 20 Blood Pressure 143/63 H Pulse Oximetry 96 100 Oxygen Delivery 12/08/23 00:00 12/08/23 02:00 12/08/23 04:00 Temperature Pulse Rate 74 80 82 Respiratory Rate Blood Pressure Pulse Oximetry Oxygen Delivery 12/08/23 06:00 Temperature Pulse Rate 86 Respiratory Rate Blood Pressure Pulse Oximetry Oxygen Delivery Intake/Output Intake/Output: Intake & Output 12/05/23 12/06/23 12/07/23 12/08/23 23:59 23:59 23:59 23:59 Intake Total 0930 4220 6265 850 Output Total
[2023-12-08] MEDS: POTASSIUM CHLORIDE INJ 40 MEQ in SODIUM CHLORIDE 0.9% IV 500 ML 130 MEQ IVPB (09:13)
[2023-12-08] MEDS: METOPROLOL TARTRATE 50 MG TAB 100 MG PO (09:13)
[2023-12-08] MEDS: ASPIRIN 325 MG ENTERIC TABLET PO (09:13)
[2023-12-08] MEDS: POTASSIUM CHLORIDE 20 MEQ ER TABLET PO (09:13)
[2023-12-08] MEDS: FERROUS SULFATE 325 MG TABLET DR PO (09:14)
[2023-12-08] MEDS: dilTIAZem HCL 60 MG TABLET PO (09:14)
[2023-12-08] MEDS: MUPIROCIN 2% OINT 22 GM TUBE 1 APPLIC EACH NARE (09:14)
--- NOTE | 2023-12-08 09:16 | PM.DS ---
DS: Admitting Diagnosis Discharge Date 03/09/2024 Admitting Diagnosis Shortness of breath DS: Discharge Diagnosis Discharge Diagnosis (1) Hypokalemia: Code(s): E87.6 - Hypokalemia Status: Acute (2) Persistent atrial fibrillation: Code(s): I48.19 - Other persistent atrial fibrillation Status: Acute (3) Obstructive sleep apnea (adult) (pediatric): Code(s): G47.33 - Obstructive sleep apnea (adult) (pediatric) Status: Acute (4) Morbid (severe) obesity due to excess calories: Code(s): E66.01 - Morbid (severe) obesity due to excess calories Status: Acute (5) intermediate (current) use of anticoagulants: Code(s): Z79.01 - long term care administrator (current) use of anticoagulants Status: Acute (6) Essential (primary) hypertension: Code(s): I10 - Essential (primary) hypertension Status: Acute (7) Dilated cardiomyopathy: Code(s): I42.0 - Dilated cardiomyopathy Status: Acute (8) Hematuria: Qualifiers: Hematuria type: unspecified type Qualified Code(s): R31.9 - Hematuria, unspecified Code(s): R31.9 - Hematuria, unspecified Status: Acute (9) Urinary tract infection: Code(s): N39.0 - Urinary tract infection, site not specified Status: Acute (10) Acute kidney injury superimposed on CKD: Code(s): N17.9 - Acute kidney failure, unspecified; N18.9 - Chronic kidney disease, unspecified Status: Acute DS: Summary Hospital Course Hospital Course: A very pleasant 43-year-old male with a past medical history morbid obesity BMI 87, atrial fibrillation since 2004 on warfarin, hypertension, dilated cardiomyopathy, [id number] diabetes mellitus, MARTÍNEZ on CPAP, panic disorder, history of hemorrhagic cystitis follows with [facility] Urology, chronic kidney disease stage IIIB presents with lightheadedness upon standing up with associated complaint of shortness of breath on exertion.? Found to be afebrile tachycardia tachypneic in [place] ER.? Soft blood pressure 109/58 and leukocytosis.? Noted to have hematuria on arrival.? Delgadillo catheter placement unsuccessful. Patient was treated for AFib with RVR, for conservative management taken hematuria, IV fluids given for FITO. Please see the specific problems below for more details. Dilated cardiomyopathy -resolved. Surface echo on 12/02/2023 demonstrated EF of 55-60% with diastolic dysfunction. Morbid obesity Sepsis without shock -likely due to UTI. Leukocytosis resolved status post antibiotics Chronic atrial fibrillation -atrial fibrillation on admission with a RVR to 200 ppm. He was on Coreg at home. Attempts at conversion with sotalol was made by the retirement consultant however it was unsuccessful. Ultimately he was changed to diltiazem and metoprolol. He tolerated this well on discharge she was in AFib with out RVR. -he was previously on warfarin and that has been changed to aspirin due to his chads Vasc score being 1 now. Hematuria -this resolved. He has follow-up with his urologist. FITO and CKD stage IIIB -suspect secondary to infection. Resolved after treatment of the UTI and IV fluid resuscitation UTI -suspected. Unfortunately urine culture was taken after antibiotics were given. Blood cultures without growth. Received a full course of antibiotics Hypertension -controlled with the medication changes as above Anemia and thrombocytopenia -due to the patient's anemia and thrombocytopenia oncology was consulted. The anemia has been going on since 2021. They continued his iron supplementation and also added Procrit. Platelet antibody test pending. The patient's acute issues resolved and on 12/08/2023 stable for discharge to home. The patient has hypokalemia. We discussed the risks versus benefits of staying and having this potassium checked as an outpatient. The patient did not want stay and will have his potassium checked in 1 and 3 days and will follow up with
[2023-12-13 16:23] LABS: Platelet Antibody, Direct NEGATIVE (NEGATIVE)
== END 2023-12-08 14:58 | disposition home or self-care (01) | DRG 720 ==
LOC: ANHED 02:51 → ANHICU 09:22 → ANHIMU 09:22
PROVIDERS: Hospitalist; Internal Medicine Nephrology; Nurse Practitioner Family; Admitting Provider Internal Medicine; Emergency Provider Emergency Medicine; PCP Family Medicine; Visit Provider General Practice
DX: A41.9 Sepsis, unspecified organism (principal); N39.0 Urinary tract infection, site not specified; I48.0 Paroxysmal atrial fibrillation; I42.0 Dilated cardiomyopathy; I13.0 Hypertensive heart and chronic kidney disease with heart failure and stage 1 through stage 4 chronic kidney disease, or unspecified chronic kidney disease; I50.41 Acute combined systolic (congestive) and diastolic (congestive) heart failure; N17.9 Acute kidney failure, unspecified; N18.30 Chronic kidney disease, stage 3 unspecified; E11.22 Type 2 diabetes mellitus with diabetic chronic kidney disease; E87.6 Hypokalemia; E86.0 Dehydration; E66.01 Morbid (severe) obesity due to excess calories; Z68.45 Body mass index [BMI] 70 or greater, adult; D63.1 Anemia in chronic kidney disease; D69.6 Thrombocytopenia, unspecified; D50.9 Iron deficiency anemia, unspecified; R31.9 Hematuria, unspecified; R42 Dizziness and giddiness; G47.33 Obstructive sleep apnea (adult) (pediatric); Z20.822 Contact with and (suspected) exposure to COVID-19; Z79.01 Long term (current) use of anticoagulants
CPT/HCPCS: 36415; 36569; 71045; 76775; 80048; 80053; 80202; 81001; 82550; 82565; 82570; 82607; 82728; 82746; 82948; 83540; 83550; 83735; 83880; 84100; 84145; 84156; 84300; 84484; 85014; 85018; 85025; 85027; 85055; 85380; 85610; 86023; 87040; 87086; 87637; 87641; 93005; 93306; 96361; 96365; 96366; 96375; 99285; A9270; C1751; G0378; G0379; J0692; J1756; J1940; J2405; J3370; J3480; J7030; J7040; J7050; Q5106; Q9957

== ENCOUNTER 2023-12-09 14:58 | Outpatient (CLI) | payer OTHER, SELFPAY ==
[2023-12-09 19:18] LABS: Anion Gap 9 mmol/L (4-12); Blood Urea Nitrogen 49 mg/dL (9-20); Calcium 8.9 mg/dL (8.4-10.2); Carbon Dioxide 20 mmol/L (22-30); Chloride 117 mmol/L (98-107); Estimated Glomerular Filt Rate 26; Glucose 105 mg/dL (65-110); Magnesium 1.9 mg/dL (1.6-2.3); Potassium 3.4 mmol/L (3.4-5.0); Sodium 146 mmol/L (137-145)
== END 2023-12-09 14:59 | disposition home or self-care (01) ==
PROVIDERS: PCP Family Medicine; Visit Provider General Practice
DX: E87.6 Hypokalemia (principal)
CPT/HCPCS: 36415; 80048; 83735

== ENCOUNTER 2023-12-21 10:39 | Outpatient (CLI) | payer OTHER, SELFPAY ==
[2023-12-21 19:32] LABS: Basophils Absolute Auto 0.1 K/mm3 (0.0-0.1); Basophils Percent Auto 0.7 % (0.2-1.2); Eosinophils Absolute Auto 0.3 K/mm3 (0-0.3); Eosinophils Percent Auto 4.9 % (0-4.4); Hematocrit 38.1 % (42.0-52.0); Hemoglobin 11.4 g/dL (14.0-18.0); Immature Granulocyte Absolute 0.02 K/mm3 (0.00-0.031); Immature Granulocyte Percent A 0.3 % (0-0.5); Lymphocytes Absolute Auto 1.96 K/mm3 (0.9-3.2); Lymphocytes Percent Auto 29.3 % (18.3-44.2); Mean Corpuscular HGB Conc 29.9 g/dl (32-36); Mean Corpuscular Hemoglobin 27.7 pg (26-34); Mean Corpuscular Volume 92.7 fl (80-100); Mean Platelet Volume 11.8 fl (7.4-10.4); Monocytes Absolute Auto 0.6 K/mm3 (0.1-0.6); Monocytes Percent Auto 8.8 % (2.6-8.5); Neutrophils Absolute Auto 3.7 K/mm3 (1.3-6.7); Platelet Count Result 154 k/mm3 (150-375); Red Blood Count 4.11 M/mm3 (4.6-6.20); Red Cell Distribution Width 15.9 % (11.5-14.5); White Blood Count 6.7 K/mm3 (4.5-10.0)
[2023-12-21 20:51] LABS: Alanine Aminotransferase 36 U/L (6-50); Albumin Level 3.9 g/dL (3.5-5.1); Alkaline Phosphatase 75 U/L (38-126); Anion Gap 11 mmol/L (4-12); Aspartate Amino Transferase 69 U/L (17-59); Bilirubin,Total 0.6 mg/dL (0.2-1.3); Blood Urea Nitrogen 47 mg/dL (9-20); Calcium 9.1 mg/dL (8.4-10.2); Carbon Dioxide 22 mmol/L (22-30); Chloride 108 mmol/L (98-107); Estimated Glomerular Filt Rate 33; Glucose 126 mg/dL (65-110); Potassium 4.3 mmol/L (3.4-5.0); Sodium 141 mmol/L (137-145)
== END 2023-12-21 10:40 | disposition home or self-care (01) ==
LOC: ANHGOSHLAB 10:40
PROVIDERS: PCP Family Medicine; Visit Provider Family Medicine
DX: D64.9 Anemia, unspecified (principal); N17.9 Acute kidney failure, unspecified; R31.0 Gross hematuria
CPT/HCPCS: 36415; 80053; 85025; 93971

== ENCOUNTER 2023-12-21 12:03 | Outpatient (CLI) | payer OTHER, SELFPAY ==
--- NOTE | ~2023-12-21 | US_ITS ---
EXAMINATION:US venous doppler LE LT INDICATION:Left lower extremity edema and erythema. TECHNIQUE: Multiple grayscale, color flow and Doppler images of the left lower extremity deep venous systems were obtained and reviewed. COMPARISON:No prior studies for comparison. FINDINGS: Study is nondiagnostic due to patient body habitus. The veins are not adequately visualized . IMPRESSION: 1: Nondiagnostic study due to patient body habitus. Reviewed, dictated and finalized at location B.
== END 2023-12-21 12:04 | disposition home or self-care (01) ==
PROVIDERS: PCP Family Medicine; Visit Provider Family Medicine
DX: M79.89 Other specified soft tissue disorders (principal); R93.9 Diagnostic imaging inconclusive due to excess body fat of patient
CPT/HCPCS: 93971

== ENCOUNTER 2023-12-22 11:01 | Outpatient (NON) | payer OTHER, SELFPAY ==
[2023-12-22 13:31] LABS: Appearance Urine Clear (Clear); Bacteria Urine None Seen /hpf; Bilirubin Urine Negative (Negative); Blood Urine 2+ (Negative); Color Urine Yellow (Yellow); Glucose Urine UA Negative (Negative); Ketones Urine Negative (Negative); Leukocyte Esterase Ur Negative LEU/UL (Negative); Nitrate Urine Negative (Negative); Non Pathogenic Casts 0-2; Protein Urine Trace mg/dL (Negative); RBC Urine 51-100 /hpf (0-2); Specific Grav Ur 1.009 (1.001-1.035); Squamous Epithelial Cell Urine None Seen /hpf (Few); Urobilinogen Urine 0.2 mg/dL (<2.0); WBC Urine 0-5 /hpf (0-3)
[2023-12-22 13:40] LABS: Add Urine Microscopic? YES
== END 2023-12-22 11:02 | disposition home or self-care (01) ==
LOC: ANHGOSHLAB 11:02
PROVIDERS: PCP Family Medicine; Visit Provider Family Medicine
DX: D64.9 Anemia, unspecified (principal); N17.9 Acute kidney failure, unspecified; R31.0 Gross hematuria
CPT/HCPCS: 81001

== ENCOUNTER 2023-12-31 23:13 | Emergency (ER) | payer OTHER, SELFPAY ==
[2023-12-31 23:38] VITALS: BP 134/77; PULSE 81; RESP 21; TEMP 36.4; O2SAT 97
[2024-01-01] MEDS: CEPHALEXIN 500 MG CAPSULE PO (00:40)
[2024-01-01 00:51] VITALS: BP 140/74; PULSE 87; RESP 15; O2SAT 97
--- NOTE | 2024-01-01 02:40 | ED.EXTPRO ---
HPI - Extremity Problem General Chief complaint: Extremity Problem,Nontraumatic Stated complaint: Lower left leg swollen, infection of blood clot Time Seen by Provider: 01/01/24 00:10 History of Present Illness HPI Narrative: patient presents with pain to his left lower leg, he has been dealing with this for 2 weeks, had a DVT ultrasound 1 week ago that was negative, had been started on antibiotics by his primary care doctor with improvement in his symptoms, however 2 days ago started feeling like he was trying to get worse again. No systemic symptoms Related Data Home Medications Medication Instructions Recorded Confirmed acetaminophen 500 mg capsule 500 mg PO Q6H PRN Pain 09/24/19 12/30/23 cholecalciferol (vitamin D3) 125 125 mcg PO DAILY 08/11/22 12/30/23 mcg (5,000 unit) capsule ferrous sulfate 325 mg (65 mg 325 mg PO DAILY 08/11/22 12/30/23 iron) tablet mecobalamin (vitamin B12) 1,000 1,000 mcg PO DAILY 08/11/22 12/30/23 mcg lozenges Allergies Allergy/AdvReac Type Severity Reaction Status Date / Time No Known Allergies Allergy Verified 12/30/23 14:44 Review of Systems Review of Systems: All systems reviewed & are unremarkable except as noted in HPI and below PMFSH Past Medical History Medical History Anemia Atrial fibrillation Class 3 severe obesity due to excess calories with body mass index (BMI) greater than or equal to 70 in adult Dehydration Diabetes mellitus Essential (primary) hypertension Hematuria Hypokalemia Morbid (severe) obesity due to excess calories Obstructive sleep apnea (adult) (pediatric) Surgical History Surgical History H/O skin graft History of cystoscopy Family History Family History Mother Patient's mother is in good health Heart disease Afib Sibling Patient's sister is in good health Father Family history of cardiovascular disease Family history of chronic obstructive pulmonary disease Hypertension MRSA infection Social History Social History Smoking status: Never smoker Second hand tobacco smoke exposure: Yes Alcohol intake: never Substance use: never Substance use type: does not use Do You Feel Safe in your Home?: Yes Lack of Transportation: No Lack of Food: Never True Current Housing: Decline to Answer Concerned About Future Housing: Decline to Answer Difficulty Paying Gas/Electric Bills: Decline to Answer Difficulty Paying for Meds: Decline to Answer Currently Unemployed: Decline to Answer Education: Decline to Answer Difficulty w/ Childcare or Family Care: Decline to Answer Living arrangements: with family Occupation/Education: other 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 EYES: EOMI, conjunctiva normal ENT: Hearing grossly intact LUNGS: Nonlabored breathing. HEART: [Regular rate and rhythm] ABD: [Soft], [nontender to palpation] EXT: no swelling of left lower extremity compared to right lower extremity. There is some induration and redness to the bottom of the left lower extremity posterior leg compared to the right SKIN: slight redness and induration to the left lower leg without severe tenderness NEURO: [Alert and oriented x 3. No gross focal sensory or strength deficits.] PSYCH: Normal affect Course Vital Signs Vital signs: Vital Signs Temperature 97.5 F L 12/31/23 23:38 Pulse Rate 81 12/31/23 23:38 Respiratory Rate 21 H 12/31/23 23:38 Blood Pressure 1
== END 2024-01-01 00:52 | disposition home or self-care (01) ==
PROVIDERS: Emergency Provider Emergency Medicine; PCP Family Medicine
DX: M79.605 Pain in left leg (principal); D64.9 Anemia, unspecified; I48.91 Unspecified atrial fibrillation; E66.01 Morbid (severe) obesity due to excess calories; Z68.45 Body mass index [BMI] 70 or greater, adult; E11.9 Type 2 diabetes mellitus without complications; I10 Essential (primary) hypertension; G47.30 Sleep apnea, unspecified
CPT/HCPCS: 93971; 99283; A9270

== ENCOUNTER 2024-01-01 10:20 | Outpatient (CLI) | payer OTHER, SELFPAY ==
--- NOTE | ~2024-01-01 | US_ITS ---
EXAMINATION:US venous doppler LE LT INDICATION: Left leg pain for 2 weeks TECHNIQUE: Multiple grayscale, color flow and Doppler images of the left lower extremity deep venous systems were obtained and reviewed. COMPARISON:No prior studies for comparison. FINDINGS: The common femoral, superficial femoral and popliteal veins demonstrate normal respiratory variation, augmentation and compressibility. Color flow is also seen within the posterior tibial, pe roneal, greater saphenous and profunda veins. Study limited due to patient body habitus. The superfic ial femoral, posterior tibial and peroneal veins are not completely visualized. IMPRESSION: 1: No lower extremity deep venous thrombosis. Limited study. Reviewed, dictated and finalized at location B.
== END 2024-01-01 10:21 | disposition home or self-care (01) ==
LOC: ANHIMG 10:21
PROVIDERS: PCP Family Medicine; Visit Provider Emergency Medicine
DX: M79.605 Pain in left leg (principal)
CPT/HCPCS: 93971

== ENCOUNTER 2024-02-22 12:49 | Outpatient (CLI) | payer OTHER, SELFPAY ==
[2024-02-22 20:19] LABS: Creatinine Urine 37.6 mg/dL; Total Protein Urine Random 33 mg/dL; Ur Ttl Prot Creatinine Ratio 0.88 mg/mg (0-0.20)
[2024-02-22 21:15] LABS: Parathyroid Intact 188.5 pg/mL (7.5-53.5); Vitamin D 25 Hydroxy 59.8 ng/mL
[2024-02-22 21:24] LABS: Albumin Level 4.1 g/dL (3.5-5.1); Anion Gap 10 mmol/L (4-12); Blood Urea Nitrogen 41 mg/dL (9-20); Calcium 9.1 mg/dL (8.4-10.2); Carbon Dioxide 26 mmol/L (22-30); Chloride 105 mmol/L (98-107); Estimated Glomerular Filt Rate 47; Glucose 117 mg/dL (65-110); Phosphorus 3.5 mg/dL (2.5-4.5); Sodium 141 mmol/L (137-145)
== END 2024-02-22 12:50 | disposition home or self-care (01) ==
PROVIDERS: PCP Family Medicine; Visit Provider Internal Medicine Nephrology
DX: N18.32 Chronic kidney disease, stage 3b (principal); E55.9 Vitamin D deficiency, unspecified; N25.81 Secondary hyperparathyroidism of renal origin
CPT/HCPCS: 36415; 80069; 82306; 82570; 83970; 84156

== ENCOUNTER 2024-07-31 10:18 | Outpatient (CLI) | payer OTHER, SELFPAY ==
[2024-07-31 14:35] LABS: Albumin Level 3.6 g/dL (3.5-5.1); Anion Gap 5 mmol/L (4-12); Blood Urea Nitrogen 43 mg/dL (9-20); Calcium 8.8 mg/dL (8.4-10.2); Carbon Dioxide 29 mmol/L (22-30); Chloride 108 mmol/L (98-107); Estimated Glomerular Filt Rate 43; Glucose 115 mg/dL (65-110); Phosphorus 3.4 mg/dL (2.5-4.5); Potassium 4.2 mmol/L (3.4-5.0); Sodium 142 mmol/L (137-145)
[2024-07-31 14:54] LABS: Creatinine Urine 49.8 mg/dL; Total Protein Urine Random 134 mg/dL; Ur Ttl Prot Creatinine Ratio 2.69 mg/mg (0-0.20)
== END 2024-07-31 10:19 | disposition home or self-care (01) ==
LOC: ANHGOSHLAB 10:19
PROVIDERS: PCP Family Medicine; Visit Provider Internal Medicine Nephrology
DX: N18.31 Chronic kidney disease, stage 3a (principal); E11.22 Type 2 diabetes mellitus with diabetic chronic kidney disease
CPT/HCPCS: 36415; 80069; 82570; 84156

== ENCOUNTER 2024-07-31 10:35 | Emergency (ER) | payer OTHER, SELFPAY ==
[2024-07-31 10:51] VITALS: BP 151/98; PULSE 91; RESP 16; TEMP 36.1; O2SAT 98
--- NOTE | 2024-07-31 11:17 | ED_ITS ---
HPI - Wound/Laceration General Chief Complaint: Wound/Laceration Stated Complaint: CAT BITE R FINGER Time Seen by Provider: 07/31/24 11:19 Source: patient, RN notes reviewed and old records reviewed Mode of arrival: ambulatory Limitations: no limitations History of Present Illness HPI narrative: 43-year-old male presents to the [facility] with a cat bite to the 5th finger right hand. Also has an abrasion to the 1st finger. Patient reports that he went to pet his Cat as she was dying yesterday when she bit his finger. Unknown last tetanus. Swelling was noted, clear drainage noted to the dorsal aspect of the finger puncture wound. Collected and sent for culture Treatments prior to arrival: other (Cleaned) Related Data Home Medications ?Medication ?Instructions ?Recorded ?Confirmed ?Last Taken ?Type acetaminophen 500 mg capsule 500 mg PO Q6H PRN Pain 09/24/19 04/05/24 Unknown History cholecalciferol (vitamin D3) 125 125 mcg PO DAILY 08/11/22 04/05/24 Unknown History mcg (5,000 unit) capsule ferrous sulfate 325 mg (65 mg 325 mg PO DAILY 08/11/22 04/05/24 Unknown History iron) tablet mecobalamin (vitamin B12) 1,000 1,000 mcg PO DAILY 08/11/22 04/05/24 Unknown History mcg lozenges ascorbate calcium (vitamin C) 500 500 mg PO DAILY 02/22/24 04/05/24 Unknown History mg tablet Allergies Allergy/AdvReac Type Severity Reaction Status Date / Time No Known Allergies Allergy Verified 07/31/24 10:45 Review of Systems Review of Systems: All systems reviewed & are unremarkable except as noted in HPI and below Constitutional: Constitutional: Reports no additional constitutional complaints ENT: Reports system reviewed and no additional complaints, except as documented Cardiovascular: Cardiovascular: Reports no additional cardiovascular complaints, Denies chest pain and Denies dyspnea Respiratory: Respiratory: Reports no additional respiratory complaints, Denies chest congestion, Denies cough and Denies dyspnea Musculoskeletal: Musculoskeletal: Reports no additional musculoskeletal complaints Integumentary/Breasts: Skin/Breast: Reports as per HPI [facility] Past Medical History Medical History Hypokalemia Dehydration Class 3 severe obesity due to excess calories with body mass index (BMI) greater than or equal to 70 in adult Atrial fibrillation Anemia Hematuria Diabetes mellitus Essential (primary) hypertension Morbid (severe) obesity due to excess calories Obstructive sleep apnea (adult) (pediatric) Surgical History Surgical History H/O skin graft History of cystoscopy Family History Family History Mother Patient's mother is in good health Heart disease Afib Sibling Patient's sister is in good health Father Family history of cardiovascular disease Family history of chronic obstructive pulmonary disease Hypertension MRSA infection Social History Social History Smoking status: Never smoker Second hand tobacco smoke exposure: Yes Alcohol intake: never Substance use: never Substance use type: does not use Do You Feel Safe in your Home?: Yes Lack of Transportation: No Lack of Food: Never True Current Housing: I Have Housing Concerned About Future Housing: No Difficulty Paying Gas/Electric Bills: No Difficulty Paying for Meds: No Currently Unemployed: YES Education: Bachelor's Degree Difficulty w/ Childcare or Family Care: No Living arrangements: with family Occupation/Education: other 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 There is no relevant family history pertinent to the patient complaint. Exam Const: General: cooperative, healthy appearing, comfortable, no acute distress, well developed, alert and well nourished Nutritional Appearance: well nourished and obese Orientation/consciousness: patient oriented x3 Limitations: no limitations HENMT: Head: normal to inspection Eyes: General: appearance normal, both eyes and all related structures Alignment and Position: alignment normal Neck: Neck: normal visual inspection, full ROM, no lymphadenopathy and no meningeal signs Chest: Chest palpation & inspection: normal inspection of the chest Resp: Effort & Inspection: normal respiratory effort and able to speak in complete sentences Cardio: Rate: regular rate Skin: General skin exam: normal color and no rashes or lesions noted Other: 2 puncture wounds noted to the 5th finge r right hand both palmar aspect dorsal aspect. Abrasion noted to the 1st finger right hand. Area to the 5th finger is swollen with full range of motion. Neuro: General: patient oriented x3, gait normal, moves all extremities and no meningeal signs Cognition (Neuro): normal cognition Speech: normal speech Gait exam (Neuro): Normal gait present Extrem: General: normal to inspection, full ROM, capillary refill normal and normal gait Psych: Appearance: grossly normal and well kempt Mental Status: mental status grossly normal Speech and movement: Normal speech and movement present and Clear speech present Affect: normal affect Attitude: cooperative Course Course Level of Care: Express Care Visit Vital Signs Vital signs: Vital Signs Temperature 96.9 F L 07/31/24 10:51 Pulse Rate 91 07/31/24 10:51 Respiratory Rate 16 07/31/24 10:51 Blood Pressure 151/98 H 07/31/24 10:51 Pulse Oximetry 98 07/31/24 10:51 Temperature 96.9 F L 07/31/24 10:51 Pulse Rate 91 07/31/24 10:51 Respiratory Rate 16 07/31/24 10:51 Blood Pressure 151/98 H 07/31/24 10:51 Pulse Oximetry 98 07/31/24 10:51 Reviewed MDM - Wound/Laceration MDM Narrative Medical decision making narrative: Patient sitting comfortably in exam room. Nontoxic, vitals stable. Patient presents with a cat bite to the right hand. Updated tetanus. Cleaned with Betadine. Patient appropriate for outpatient treatment with strict signs and symptoms go the emergency room. Sent in Augmentin Discharge instructions reviewed with patient, as well as provided in writing per nursing staff. The instructions also include specific and strict return/GO TO THE ER as well as f/u information. All questions have been answered, and the patient deny any further questions with discharge and discharge plan. Some parts of this dictation were generated by voice recognition software and may contain typographical and/or grammatical inaccuracies. Differential Diagnosis Differential diagnosis: Likely laceration and other (Sure wound) Critical Care Time Critical Care Time Critical Care Time: No Discharge Plan Discharge Clinical Impression: Vaccine for [id number], combined Cat bite of finger Qualifiers: Encounter type: initial encounter Qualified Code(s): S61.259A - Open bite of unspecified finger without damage to nail, initial encounter; W55.01XA - Bitten by cat, initial encounter Patient Disposition: Home, Self-Care Condition: Stable Instructions: Antibiotic Form, Animal Bite (ED) Additional Instructions: soaks 2 to 3 times a day in warm soapy water and Epson salt for 15-20 minutes. Take antibiotic as prescribed today your blood pressure was 151/ 98 it is recommended you follow-up with primary care provider within the next 2 weeks have this rechecked. For new or worsening symptoms please go directly to the emergency room Patient Language: Faroese Prescriptions: New amoxicillin-pot clavulanate 875-125 mg tablet 1 tablet PO Q12H Qty: 20 0RF No Action acetaminophen 500 mg capsule 500 mg PO Q6H PRN (Reason: Pain) mecobalamin (vitamin B12) 1,000 mcg lozenge 1,000 mcg PO DAILY Rx Instructions: allow to dissolve in mouth OR may chew lightly before swallowing ferrous sulfate 325 mg (65 mg iron) tablet 325 mg PO DAILY cholecalciferol (vitamin D3) 125 mcg (5,000 unit) capsule 125 mcg PO DAILY (DME) CPAP Equipment See Rx Instructions .Route .MEDSUPPLY Qty: 1 0RF Rx Instructions: Rx: Resmed AutoPAP 5-17 cm H2O, CPAP mask/filters/tubing and humidifier chamber Dx: G47.33 Treatment Length: 99+ months *Please link me to the patient's CPAP machine through [facility]* Physician: Dr. Sonia Stack DO DME: [place] carvedilol 25 mg tablet 25 mg PO Q12H Qty: 60 5RF Rx Instructions: must administer with a meal/food ascorbate calcium (vitamin C) 500 mg tablet 500 mg PO DAILY aspirin 325 mg Tablet,Delayed Release (Dr/Ec) 325 mg PO QAM Qty: 30 0RF citalopram 40 mg tablet 40 mg PO DAILY Qty: 90 1RF Rx Instructions: Take 1 tablet by mouth once daily Follow-up/Referrals: Sonia Stack DO [Primary Care Provider] - Time of Disposition: 11:32
[2024-07-31] MEDS: TETANUS,DIPHTHERIA,AC PERTUSSIS ADULT (0.5 ML) BOOSTRIX IM (11:29)
== END 2024-07-31 11:34 | disposition home or self-care (01) ==
PROVIDERS: Emergency Provider Nurse Practitioner; PCP Family Medicine
DX: S61.236A Puncture wound without foreign body of right little finger without damage to nail, initial encounter (principal); B95.62 Methicillin resistant Staphylococcus aureus infection as the cause of diseases classified elsewhere; B96.89 Other specified bacterial agents as the cause of diseases classified elsewhere; W55.01XA Bitten by cat, initial encounter; Z23 Encounter for immunization; I48.91 Unspecified atrial fibrillation; E11.9 Type 2 diabetes mellitus without complications; I10 Essential (primary) hypertension; D64.9 Anemia, unspecified; E66.01 Morbid (severe) obesity due to excess calories
CPT/HCPCS: 87070; 87075; 87181; 87205; 90471; 90715; 99213; G0463

== ENCOUNTER 2024-11-27 10:13 | Outpatient (CLI) | payer OTHER, SELFPAY ==
--- OUTSIDE RECORDS SUMMARY | 2024-11-27 11:03 | XMS_ITS | Referral Summary ---
Author Organization [facility] Address [address] [place] [address] Care Team Providers Care Delimber Operator Name Role Phone Sonia Stack DO Primary Care Provider + Encounters Date Type Department Care Team Description 09/24/2024 SHOP/CHAP Subsequent Outreach [facility] OP CASE MANAGEMENT [address] [place] [address] Latonia Mcnally, RYAN 09/17/2024 SHOP/CHAP Subsequent Outreach [facility] OP CASE MANAGEMENT [address] [place] [address] Latonia Mcnally, RYAN 09/10/2024 SHOP/CHAP Subsequent Outreach [facility] OP CASE MANAGEMENT [address] [place] [address] Latonia Mcnally, RYAN 09/03/2024 SHOP/CHAP Subsequent Outreach [facility] OP CASE MANAGEMENT [address] [place] [address] Latonia Mcnally, RYAN from Last 3 Months Allergies No known active allergies Medications carvediloL (COREG) 25 mg tabletIndicatio ns:hypertension Take 50 mg by mouth 2 (two) times a day with meals 03/30/2022 Active citalopram (CeleXA) 40 mg tabletIndicatio ns:Anxiety with Depression Take 40 mg by mouth nightly 03/28/2022 Active cholecalciferol , vitamin D3, (VITAMIN D3 ORAL)Indication s:supplement Take 5,000 Int'l Units by mouth every morning Active cyanocobalamin, vitamin B-12, (VITAMIN B-12 ORAL)Indication s:supplement Take 1 tablet by mouth every morning Active acetaminophen (TYLENOL) 500 mg tablet Take 1,000 mg by mouth every 6 (six) hours as needed for pain Active losartan (COZAAR) 25 mg tablet Take 1 tablet (25 mg total) by mouth daily 30 tablet 08/25/2024 Active Active Problems Problem Noted Date Diagnosed Date Shortness of breath 08/23/2024 Gross hematuria 06/22/2022 Overview (06/22/2022): Added automatically from request for surgery [id number] Social History Tobacco Use Types Packs/Day Years Used Date Smoking Tobacco: Never Smokeless Tobacco: Never Tobacco Cessation:Counseling Given: Not Answered [facility] Utilities Answer Date Recorded In the past 12 months has [employer], gas, oil, or water [employer] threatened to shut off services in your home? No 08/27/2024 Social Connection and Isolat ion Panel [NHANES] Answer Date Recorded In a typical week, how many times do you talk on the phone with family, friends, or neighbors? Three times a week 08/27/2024 How often do you get togethe r with friends or relatives? Three times a week 08/27/2024 How often do you attend [facility] or orthodoxy services? Never 08/27/2024 Do you belong to any clubs o r organizations such as sikh groups, unions, fraternal or athletic groups, or school groups? Yes 08/27/2024 How often do you attend meet ings of the clubs or organizations you belong to? More than 4 times per year 08/27/2024 Are you , , di vorced, , never , or living with a partner? Never 08/27/2024 AUDIT-C Answer Date Recorded Q1: How often do you have a drink containing alc ohol? Monthly or less 07/07/2022 Q2: How many drinks containi ng alcohol do you have on a typical day when you are drinking? 1 or 2 07/07/2022 Q3: How often do you have si x or more drinks on one occasion? Never 07/07/2022 Overall Financial Resource Strain (CARDIA) Answe r Date Recorded How hard is it for you to pa y for the very basics like food, housing, medical care, and heating? Not hard at all 08/27/2024 Hunger Vital Sign Answer Date Recorded Within the past 12 months, y ou worried that your food would run out before you got the money to buy more. Never true 08/27/19 25 Within the past 12 months, t he food you bought just didn't last and you didn't have money to get more. Never true 08/27/2024 PRAPARE - Transportation Answer Date Re corded In the past 12 months, has l ack of transportation kept you from medical appointments or from getting medications? No 09/2024 In the past 12 months, has l ack of transportation kept you from meetings, work, or from getting things needed for daily living? No 08/27/2024 Housing Stability Vital Sign Answer Reji e Recorded In the last 12 months, was t here a time when you were not able to pay the mortgage or rent on time? No 08/27/2024 In the past 12 months, how m any times have you moved where you were living? 0 08/27/2024 At any time in the past 12 m [facility], were you homeless or living in a long term (including now)? No 08/27/2024 Personal Safety Answer Date Recorded Have you ever been in or are you currently in a harmful physical or emotional relationship or is someone making you feel afraid or unsafe? Denies 08/24/2024 Sex and Gender Information Value Date Recorded Sex Assigned at Not on file Legal Sex Male 3:13 PM CDT Gender Identity Not on file Sexual Orientation Not on file Last Filed Vital Signs Vital Sign Reading Time Taken Comments Blood Pressure 142/99 08/25/2024 11:05 AM BEZEL CUTTER Pulse 103 08/25/2024 11:05 AM BEZEL CUTTER Temperature 36.6 C (97.9 F) 08/25/2024 11:05 AM BEZEL CUTTER Respiratory Rate 18 08/25/2024 11:0 5 AM BEZEL CUTTER Oxygen Saturation 97% 08/25/2024 11: 05 AM BEZEL CUTTER Inhaled Oxygen Concentration - - Weight 304.2 kg (670 lb 11.2 oz) 2024 11:57 AM BEZEL CUTTER Height 182.9 cm (6') 08/24/2024 11:57 AM BEZEL CUTTER Body Mass Index 90.96 08/24/2024 11:57 AM BEZEL CUTTER Plan of Treatment Not on file Procedures Procedure Name Priority Date/Time Associated Diagnosis Comments EGFR Routine 08/25/2024 12:58 AM BEZEL CUTTER HEMOGLOBIN A1C STAT 08/23/2024 3:56 PM BEZEL CUTTER LIPID PANEL STAT 08/23/2024 3:56 PM BEZEL CUTTER from Last 3 Months or Most Recently Relevant to Health Maintenance Results * (ABNORMAL) eGFR (08/25/2024 12:58 AM BEZEL CUTTER) eGFR 44(L) >=60 mL/min/1. 73 m2 Comment: Interpretive Data Reference Interval Normal >/= 90 mL/min/1.73m2 Mildly decreased* 60 - 89 mL/min/1.73m2 Mildly to moderately decreased 45 - 59 mL/min/1.73m2 Moderately to severely decreased 30 - 44 mL/min/1.73m2 Severely decreased 15 - 29 mL/min/1.73m2 Kidney Failure < 15 mL/min/1.73m2 *Relative to young adult level Estimated glomerular filtration rate is determined by the 2020 CKD-EPI equation recommended by the National Kidney Foundation (A Unifying Approach to GFR Estimation: Recommendations of the NKF-ASK Task Force on Reassessing the Inclusion of Race in Diagnosing Kidney Disease, JASN 202). The CKD-EPI equation should not be used for patients with unstable renal function and has not been validated in children and those over 70. Current interpretive data was last reviewed 2021. Blood 08/25/2024 12:5 8 AM BEZEL CUTTER 08/25/2024 1:47 AM BEZEL CUTTER us Emma Marcial MD LAB BLOOD ORDERABLES Final R esult [facility] Department [place] [address] * Hemoglobin A1c (08/23/2024 3:56 PM BEZEL CUTTER) Hgb A1C 5.0 4.0 - 5.6 % Estimated Average Glucose 97 mg/dL [facility] Comment: The ADA recommends reporting an estimated Average Glucose (eAG) with all Hemoglobin A1c results using the equation derived from a study of 507 normal and diabetic adults. Minority populations were underrepresented and children were not included. (Diabetes Care 2020; 43(S1): S66-S76). The eAG is not equivalent to a fasting glucose. Blood 08/23/2024 3:56 PM BEZEL CUTTER 08/23/2024 4:23 PM BEZEL CUTTER us Norman Begum MD LAB BLOOD ORDERABLES F inal Result [facility] Department [place] [address] * (ABNORMAL) Lipid panel (08/23/2024 3:56 PM BEZEL CUTTER) Pathologist [facility] Cholesterol 147 30 - 199 mg/dL Comment: Interpretive Data Ages < or = 19 years Acceptable: <170 mg/dL Borderline high: 170-199 mg/dL High: >or= 200 mg/dL Ages > or = 20 years Desirable: <200 mg/dL Borderline high: 200-239 mg/dL High: >or= 240 mg/dL Literature References: 1. Expert Panel on Integrated Guidelines for Cardiovascular Health and Risk Reduction in Children and Adolescents. Pediatrics 2011;128:S213 2. NCEP Expert Panel. Circulation 2004;110:227 Current Interpretive Data was last revised on 2018. Triglycerides 49 <=149 mg/dL [facility] Comment: Interpretive Data Ages < or = 9 years Acceptable: <75 mg/dL Borderline high: 75-99 mg/dL High: >or= 100 mg/dL Ages 10 to 20 years Acceptable: <90 mg/dL Borderline high: 90-129 mg/dL High: >or= 130 mg/dL Ages > or = 20 years Desirable: <150 mg/dL Borderline high: 150-199 mg/dL High: 200-499 mg/dL Very high: >or= 499 mg/dL Literature References: 1. Expert Panel on Integrated Guidelines for Cardiovascular Health and Risk Reduction in Children and Adolescents. Pediatrics 2011;128:S213 2. NCEP Expert Panel. Circulation 2004;110:227 Current Interpretive Data was last revised on 2018. HDL 39(L) >=40 mg/dL [facility] Comment: Interpretive Data Ages < or = 19 years Acceptable: >45 mg/dL Borderline low: 40-45 mg/dL Low: <40 mg/dL Ages > or = 20 years Desirable: >or= 60 mg/dL Low: <40 mg/dL Literature References: 1. Expert Panel on Integrated Guidelines for Cardiovascular Health and Risk Reduction in Children and Adolescents. Pediatrics 2011;128:S213 2. NCEP Expert Panel. Circulation 2004;110:227 Current Interpretive Data was last revised on 2018. LDL, calculated 97 <=129 mg/dL [facility] Comment: Interpretive Data Ages < or = 19 years Acceptable: <110 mg/dL Borderline high: 110-129 mg/dL High: >or= 130 mg/dL Ages > or = 20 years Optimal: <100 mg/dL Near optimal: 100-129 mg/dL Borderline high: 130-159 mg/dL High: >160 mg/dL Calculated using the Umang LDL-C estimating equation. This equation was implemented on 2024. Prior to this date LDL-C was estimated using the Friedewald equation. Literature References: 1. Expert Panel on Integrated Guidelines for Cardiovascular Health and Risk Reduction in Children and Adolescents. Pediatrics 2011;128:S213 2. NCEP Expert Panel. Circulation 2004;110:227 3. Umang Madrid et al. MISHA Cardiol. 2019November 22;5(5):540-548. doi: 10.1001/jamacardio.2020.0013 Current Interpretive Data was last revised on 2024. Non-HDL Cholesterol 108 mg/dL [facility] Comment: Interpretive Data Ages < or = 19 years Acceptable: <120 mg/dL Borderline high: 120-144 mg/dL High: >145 mg/dL Ages > or = 20 years When triglycerides are >200 mg/dL, Non-HDL cholesterol is a secondary target of therapy with treatment goals that are 30 mg/dL greater than the LDL cholesterol target. Literature References: 1. Expert Panel on Integrated Guidelines for Cardiovascular Health and Risk Reduction in Children and Adolescents. Pediatrics 2011;128:S213 2. NCEP Expert Panel. Circulation 2004;110:227 Current Interpretive Data was last revised on 2018. Chol/HDL ratio 4 [facility] Blood 08/23/2024 3:56 PM BEZEL CUTTER 08/23/2024 4:17 PM BEZEL CUTTER us Norman Begum MD LAB BLOOD ORDERABLES F inal Result [facility] Department [place] [address] from Last 3 Months or Most Recently Relevant to Health Maintenance Insurance [facility] Advance Directives For more information, please contact: [phone] * Full Code (Latest Code Status on File) Date Activated Date Inactivated Comments 08/24/2024 7:52 AM 08/25/2024 8:10 PM Care Teams Delimber Operator Relationship Specialty Start Date End Date Sonia Stack DO PCP - General Family Medicine 03/23/22
--- OUTSIDE RECORDS SUMMARY | 2024-11-27 11:03 | XMS_ITS | Clinical Summary ---
Author Organization [facility] Address [address] [place] [address] Care Team Providers Care Endocrinologist Name Role Phone Fiona Stackzabeth Conchis WALKER Primary Care Provider + Allergies No known active allergies Medications carvediloL [...] (06/22/2022): Added automatically from request for surgery [id number] Encounters Date Type Department Care Team Description 09/24/2024 SHOP/CHAP Subsequent Outreach [facility] OP CASE MANAGEMENT [address] [place] [id number] Latonia Mcnally RN 09/17/2024 SHOP/CHAP Subsequent Outreach [facility] OP CASE MANAGEMENT [address] [place] [address] Latonia Mcnally RN 09/10/2024 SHOP/CHAP Subsequent Outreach [facility] OP CASE MANAGEMENT [address] [place] [address] Latonia Mcnally RN 09/03/2024 SHOP/CHAP Subsequent Outreach [facility] OP CASE MANAGEMENT [address] [place] [address] Latonia Mcnally RN from Last 3 Months Surgical History Surgery Date Site/Laterality Comments WISDOM TOOTH EXTRACTION 07/25/1997 - 07/24/1998 nitrous oxide NO PAST SURGERIES Medical History Medical History Date Comments MARTÍNEZ on CPAP uses cpap Atrial fibrillation (HCC) Anxiety Hypertension Diabetes (HCC) Morbid obesity (HCC) Family History Medical History Relation Name Comments Heart attack Father early 30s Anesthesia problems Neg Hx Relation Name Status Comments Father Alive Mother Alive Social History Tobacco Use Types Packs/Day Years Used Date Smoking Tobacco: Never Smokeless Tobacco: Never Tobacco Cessation:Counseling Given: Not Answered [facility] Utilities Answer Date Recorded In the past 12 months has [employer], gas, oil, or water [employer] threatened to shut off services in your [...] week 08/27/2024 How often do you attend chur ch or shinto services? Never 08/27/2024 Do you belong to any clubs o r organizations such as episcopalian groups, unions, fraternal or athletic groups, or [...] any time in the past 12 m [facility], were you homeless or living in a care home (including now)? No 08/27/2024 Personal Safety Answer [...] on file Sexual Orientation Not on file Obstetrics History Last Filed Vital Signs Vital Sign Reading Time Taken Comments Blood Pressure 142/99 08/25/2024 11:05 AM MOTOR ASSEMBLY SUPERVISOR Pulse 103 08/25/2024 11:05 AM MOTOR ASSEMBLY SUPERVISOR Temperature 36.6 C (97.9 F) 08/25/2024 11:05 AM MOTOR ASSEMBLY SUPERVISOR Respiratory Rate 18 08/25/2024 11:0 5 AM MOTOR ASSEMBLY SUPERVISOR Oxygen Saturation 97% 08/25/2024 11: 05 AM MOTOR ASSEMBLY SUPERVISOR Inhaled Oxygen Concentration - - Weight 304.2 kg (670 lb 11.2 oz) 2024 11:57 AM MOTOR ASSEMBLY SUPERVISOR Height 182.9 cm (6') 08/24/2024 11:57 AM MOTOR ASSEMBLY SUPERVISOR Body Mass Index 90.96 08/24/2024 11:57 AM MOTOR ASSEMBLY SUPERVISOR Plan of Treatment Health Maintenance Due Date Last Done Comments Albumin Creatinine Ratio, Urine 1980 Depression Screening 1980 Hepatitis C Screening 1980 Dilated Eye Exam 1980 Foot Exam 1980 DTaP/Tdap/Td Vaccine (1 - Tdap) 1991 Varicella Vaccines (1 of 2 - 13+ 2-dose series) 1993 Hepatitis B Screening 1998 Regular Well Visit/Exam 18-64 1998 Pneumococcal vaccine <65 (1 of 2 - PCV) 1999 Covid-19 Vaccine (3 - 2023-2 5 season) 2024 10/18/2020, 09/25/2020 Influenza Vaccine (#1) 2024 Hemoglobin A1C 02/21/2025 08/24/2024, 08/23/2024 Lipid Panel 08/24/2025 08/24/2024, 08/23/2024 eGFR 08/25/2025 08/25/2024, 08/23/2024, 06/11/2022 HPV Vaccines Aged Out No longer eligi ble based on patient's age to complete this topic Procedures Procedure Name Priority Date/Time Associated Diagnosis Comments EGFR Routine 08/25/2024 12:58 AM MOTOR ASSEMBLY SUPERVISOR HEMOGLOBIN A1C STAT 08/23/2024 3:56 PM MOTOR ASSEMBLY SUPERVISOR LIPID PANEL STAT 08/23/2024 3:56 PM MOTOR ASSEMBLY SUPERVISOR from Last 3 Months or Most Recently Relevant to Health Maintenance Results * (ABNORMAL) eGFR (08/25/2024 12:58 AM MOTOR ASSEMBLY SUPERVISOR) eGFR 44(L) >=60 mL/min/1. 73 m2 Comment: [...] of Race in Diagnosing Kidney Disease, JASN 2020). The CKD-EPI equation should not be used for patients with unstable renal function and has not been validated in children and those over 70. Current interpretive data was last reviewed 2021. Blood 08/25/2024 12:5 8 AM MOTOR ASSEMBLY SUPERVISOR 08/25/2024 1:47 AM MOTOR ASSEMBLY SUPERVISOR us Emma Marcial MD LAB BLOOD ORDERABLES Final R esult [facility] Department [place] [address] * Hemoglobin A1c (08/23/2024 3:56 PM MOTOR ASSEMBLY SUPERVISOR) [facility] Hgb A1C 5.0 4.0 - 5.6 % Estimated Average Glucose 97 mg/dL [facility] Comment: The ADA recommends reporting an estimated Average Glucose (eAG) with all Hemoglobin A1c results using the equation derived from a study of 507 normal and diabetic adults. Minority populations were underrepresented and children were not included. (Diabetes Care 2020; 43(S1): S66-S76). The eAG is not equivalent to a fasting glucose. Blood 08/23/2024 3:56 PM MOTOR ASSEMBLY SUPERVISOR 08/23/2024 4:23 PM MOTOR ASSEMBLY SUPERVISOR us Norman Begum MD LAB BLOOD ORDERABLES F inal Result [facility] Department [place] [address] * (ABNORMAL) Lipid panel (08/23/2024 3:56 PM MOTOR ASSEMBLY SUPERVISOR) Cholesterol 147 30 - 199 mg/dL Comment: [...] revised on 2018. Triglycerides 49 <=149 mg/dL [facility] Comment: Interpretive Data Ages < or = [...] revised on 2018. HDL 39(L) >=40 mg/dL [facility] Comment: Interpretive Data Ages < or [...] on 2018. LDL, calculated 97 <=129 mg/dL [facility] Comment: Interpretive Data Ages < or [...] 3. Umang Madrid et al. MISHA Cardiol. 2020 November 22;5(5):540-548. doi: 10.1001/jamacardio.2020.0013 Current Interpretive Data was last revised on 2024. Non-HDL Cholesterol 108 mg/dL [facility] Comment: Interpretive Data Ages < or [...] last revised on 2018. Chol/HDL ratio 4 [facility] Blood 08/23/2024 3:56 PM MOTOR ASSEMBLY SUPERVISOR 08/23/2024 4:17 PM MOTOR ASSEMBLY SUPERVISOR us Norman Begum MD LAB BLOOD ORDERABLES F inal Result [facility] Department [place] [address] from Last 3 Months or Most Recently Relevant to Health Maintenance Insurance [facility] Advance Directives For more information, please contact: [phone] * Full Code (Latest Code Status on File) Date Activated Date Inactivated Comments 08/24/2024 7:52 AM 08/25/2024 8:10 PM Care Teams Endocrinologist Relationship Specialty Start Date End Date Sonia tSack DO PCP - General Family Medicine 03/23/22
[2024-11-27 12:49] LABS: Albumin Level 3.7 g/dL (3.5-5.1); Anion Gap 6 mmol/L (4-12); Blood Urea Nitrogen 46 mg/dL (9-20); Calcium 8.9 mg/dL (8.4-10.2); Carbon Dioxide 28 mmol/L (22-30); Chloride 108 mmol/L (98-107); Estimated Glomerular Filt Rate 39; Glucose 93 mg/dL (65-110); Phosphorus 3.5 mg/dL (2.5-4.5); Potassium 4.4 mmol/L (3.4-5.0); Sodium 142 mmol/L (137-145)
[2024-11-27 13:27] LABS: Parathyroid Intact 143.4 pg/mL (14.5-75.2)
[2024-11-27 13:31] LABS: Vitamin D 25 Hydroxy 55.1 ng/mL
[2024-11-27 13:35] LABS: Creatinine Urine 56.2 mg/dL; Total Protein Urine Random 63 mg/dL; Ur Ttl Prot Creatinine Ratio 1.12 mg/mg (0-0.20)
== END 2024-11-27 10:14 | disposition home or self-care (01) ==
LOC: ANHGOSHLAB 10:14
PROVIDERS: PCP Family Medicine; Visit Provider Internal Medicine Nephrology
DX: E87.6 Hypokalemia (principal); E11.22 Type 2 diabetes mellitus with diabetic chronic kidney disease; N18.32 Chronic kidney disease, stage 3b; N25.81 Secondary hyperparathyroidism of renal origin; E55.9 Vitamin D deficiency, unspecified
CPT/HCPCS: 36415; 80069; 82306; 82570; 83970; 84156

== ENCOUNTER 2024-12-20 02:59 | Emergency (ER) | payer OTHER, SELFPAY ==
[2024-12-20] VITALS (7 sets, daily range): BP systolic 138–169; BP diastolic 84–97; PULSE 88–114; RESP 16–20; TEMP 37.1; O2SAT 98–100
--- NOTE | ~2024-12-20 | XR_ITS ---
Portable chest x-ray Comparison: 12/02/2023 Clinical History: Fever Findings: There is extensive hazy airspace disease especially in the right lung, with questionable m inimal left perihilar region.. No definite pleural effusion. Cardiomediastinal silhouette is stable. Bones and soft tissues are unremarkable. Impression: Hazy bilateral airspace disease, right lung worse than left. Correlate for asymmetric pulmonary edema versus bilateral pneumonia. Stable cardiomegaly. Reviewed, dictated and finalized at [facility]. Impression: Hazy bilateral airspace disease, right lung worse than left. Correlate for asym metric pulmonary edema versus bilateral pneumonia. Stable cardiomegaly.
--- OUTSIDE RECORDS SUMMARY | 2024-12-20 03:01 | XMS_ITS | Clinical Summary ---
Author Organization [facility] Address [address] [place] [address] Care Team Providers Care Host/Hostess Head Name Role Phone Fiona Stackzabeth Conchis WALKER [...] (06/22/2022): Added automatically from request for surgery [id number] Encounters Date Type Department Care Team Description 09/24/2024 SHOP/CHAP Subsequent Outreach [facility] MANAGEMENT [address] [place] [id number] Latonia Mcnally RN from Last 3 Months [...] Tobacco: Never Tobacco Cessation:Counseling Given: Not Answered [facility] Utilities Answer Date Recorded In the past 12 months has [employer], gas, oil, or water [employer] threatened to shut off services in your [...] week 08/27/2024 How often do you attend [facility] or muslim services? Never 08/27/2024 Do you belong to any clubs o r organizations such as shinto groups, unions, fraternal or athletic groups, or [...] any time in the past 12 m [facility], were you homeless or living in a senior living (including now)? No 08/27/2024 Personal Safety Answer [...] Comments Blood Pressure 142/99 08/25/2024 11:05 AM DRYING MACHINE OPERATOR Pulse 103 08/25/2024 11:05 AM DRYING MACHINE OPERATOR Temperature 36.6 C (97.9 F) 08/25/2024 11:05 AM DRYING MACHINE OPERATOR Respiratory Rate 18 08/25/2024 11:0 5 AM DRYING MACHINE OPERATOR Oxygen Saturation 97% 08/25/2024 11: 05 AM DRYING MACHINE OPERATOR Inhaled Oxygen Concentration - - Weight 304.2 kg (670 lb 11.2 oz) 2024 11:57 AM DRYING MACHINE OPERATOR Height 182.9 cm (6') 08/24/2024 11:57 AM DRYING MACHINE OPERATOR Body Mass Index 90.96 08/24/2024 11:57 AM DRYING MACHINE OPERATOR Plan of Treatment Health Maintenance Due Date [...] - 2023-2 5 season) 2024 10/18/2020, 09/25/2020 Hemoglobin A1C 02/21/2025 08/24/2024, 08/23/2024 Influenza Vaccine (Season Ended) 2025 Lipid Panel 08/24/2025 08/24/2024, 08/23/2024 eGFR 08/25/2025 08/25/2024, 08/23/2024, 06/11/2022 HPV Vaccines Aged Out No longer eligi ble based on patient's age to complete this topic Procedures Procedure Name Priority Date/Time Associated Diagnosis Comments EGFR Routine 08/25/2024 12:58 AM DRYING MACHINE OPERATOR HEMOGLOBIN A1C STAT 08/23/2024 3:56 PM DRYING MACHINE OPERATOR LIPID PANEL STAT 08/23/2024 3:56 PM DRYING MACHINE OPERATOR from Last 3 Months or Most Recently Relevant to Health Maintenance Results * (ABNORMAL) eGFR (08/25/2024 12:58 AM DRYING MACHINE OPERATOR) eGFR 44(L) >=60 mL/min/1. 73 m2 Comment: [...] reviewed 2021. Blood 08/25/2024 12:5 8 AM DRYING MACHINE OPERATOR 08/25/2024 1:47 AM DRYING MACHINE OPERATOR Emma Marcial MD LAB BLOOD ORDERABLES Final R esult Performing Organization Address [facility] de Phone Number [facility] [place] [address] * Hemoglobin A1c (08/23/2024 3:56 PM DRYING MACHINE OPERATOR) Pathologist [facility] Hgb A1C 5.0 4.0 - 5.6 % Estimated Average Glucose 97 mg/dL [facility] Comment: The ADA recommends reporting an estimated Average Glucose (eAG) with all Hemoglobin A1c results using the equation derived from a study of 507 normal and diabetic adults. Minority populations were underrepresented and children were not included. (Diabetes Care 2020; 43(S1): S66-S76). The eAG is not equivalent to a fasting glucose. Blood 08/23/2024 3:56 PM DRYING MACHINE OPERATOR 08/23/2024 4:23 PM DRYING MACHINE OPERATOR Norman Begum MD LAB BLOOD ORDERABLES F inal Result Performing Organization Address [facility] de Phone Number [facility] Department [place] [address] * (ABNORMAL) Lipid panel (08/23/2024 3:56 PM DRYING MACHINE OPERATOR) Cholesterol 147 30 - 199 mg/dL Comment: [...] revised on 2018. Triglycerides 49 <=149 mg/dL [facility] Comment: Interpretive Data Ages < [...] revised on 2018. HDL 39(L) >=40 mg/dL [facility] Comment: Interpretive Data Ages < or = [...] on 2018. LDL, calculated 97 <=129 mg/dL [facility] Comment: Interpretive Data Ages < or = 19 years Acceptable: <110 mg/dL Borderline high: 110-129 mg/dL High: >or= 130 mg/dL Ages > or = 20 years Optimal: <100 mg/dL Near optimal: 100-129 mg/dL Borderline high: 130-159 mg/dL High: >160 mg/dL Calculated using the Heck LDL-C estimating equation. This equation was implemented on 2024. Prior to this date LDL-C was estimated using the Friedewald equation. Literature References: 1. Expert Panel on Integrated Guidelines for Cardiovascular Health and Risk Reduction in Children and Adolescents. Pediatrics 2011;128:S213 2. NCEP Expert Panel. Circulation 2004;110:227 3. Umang M et al. MISHA Cardiol. 2020 November 22;5(5):540-548. doi: 10.1001/jamacardio.2020.0013 Current Interpretive Data was last revised on 2024. Non-HDL Cholesterol 108 mg/dL [facility] Comment: Interpretive Data Ages < or = [...] last revised on 2018. Chol/HDL ratio 4 [facility] Blood 08/23/2024 3:56 PM DRYING MACHINE OPERATOR 08/23/2024 4:17 PM DRYING MACHINE OPERATOR us Norman Begum MD LAB BLOOD ORDERABLES F inal Result [facility] Department [place] [address] from Last 3 Months or Most Recently Relevant to Health Maintenance Insurance [facility] Advance Directives For more information, please contact: [phone] * Full Code (Latest Code Status on File) Date Activated Date Inactivated Comments 08/24/2024 7:52 AM 08/25/2024 8:10 PM Care Teams Host/Hostess Head Relationship Specialty Start Date End Date Sonia Stack DO PCP - General Family Medicine 03/23/22
--- OUTSIDE RECORDS SUMMARY | 2024-12-20 03:01 | XMS_ITS | Referral Summary ---
Author Organization [facility] Address [address] [place] [address] Care Team Providers Care Heating Unit Mechanic Name Role Phone Fiona Stackzabeth Conchis WALKER Primary Care Provider + Encounters Date Type Department Care Team Description 09/24/2024 SHOP/CHAP Subsequent Outreach [facility] CASE [facility]NAG[facility] [address] [place] [address] Latonia Mcnally RN from Last 3 Months Allergies No known [...] (06/22/2022): Added automatically from request for surgery [id number] Social History Tobacco Use Types Packs/Day Years Used Date Smoking Tobacco: Never Smokeless Tobacco: Never Tobacco Cessation:Counseling Given: Not Answered [facility] Utilities Answer Date Recorded In the past 12 months has th e electric, gas, oil, or water company threatened to shut off services in your [...] often do you attend chur ch or yarsani services? Never 08/27/2024 Do you belong to any clubs o r organizations such as christianity groups, unions, fraternal or athletic groups, or [...] any time in the past 12 m [facility], were you homeless or living in a halfway (including now)? No 08/27/2024 Personal Safety Answer [...] Comments Blood Pressure 142/99 08/25/2024 11:05 AM LUBRICATING ENGINEER Pulse 103 08/25/2024 11:05 AM LUBRICATING ENGINEER Temperature 36.6 C (97.9 F) 08/25/2024 11:05 AM LUBRICATING ENGINEER Respiratory Rate 18 08/25/2024 11:0 5 AM LUBRICATING ENGINEER Oxygen Saturation 97% 08/25/2024 11: 05 AM LUBRICATING ENGINEER Inhaled Oxygen Concentration - - Weight 304.2 kg (670 lb 11.2 oz) 2024 11:57 AM LUBRICATING ENGINEER Height 182.9 cm (6') 08/24/2024 11:57 AM LUBRICATING ENGINEER Body Mass Index 90.96 08/24/2024 11:57 AM LUBRICATING ENGINEER Plan of Treatment Not on file Procedures Procedure Name Priority Date/Time Associated Diagnosis Comments EGFR Routine 08/25/2024 12:58 AM LUBRICATING ENGINEER HEMOGLOBIN A1C STAT 08/23/2024 3:56 PM LUBRICATING ENGINEER LIPID PANEL STAT 08/23/2024 3:56 PM LUBRICATING ENGINEER from Last 3 Months or Most Recently Relevant to Health Maintenance Results * (ABNORMAL) eGFR (08/25/2024 12:58 AM LUBRICATING ENGINEER) eGFR 44(L) >=60 mL/min/1. 73 m2 Comment: [...] reviewed 2021. Blood 08/25/2024 12:5 8 AM LUBRICATING ENGINEER 08/25/2024 1:47 AM LUBRICATING ENGINEER us Emma Marcial MD LAB BLOOD ORDERABLES Final R esult [facility] [place] [address] * Hemoglobin A1c (08/23/2024 3:56 PM LUBRICATING ENGINEER) Pathologist [facility] Hgb A1C 5.0 4.0 - 5.6 % Estimated Average Glucose 97 mg/dL [facility] Comment: The ADA recommends reporting an estimated Average Glucose (eAG) with all Hemoglobin A1c results using the equation derived from a study of 507 normal and diabetic adults. Minority populations were underrepresented and children were not included. (Diabetes Care 2020; 43(S1): S66-S76). The eAG is not equivalent to a fasting glucose. Blood 08/23/2024 3:56 PM LUBRICATING ENGINEER 08/23/2024 4:23 PM LUBRICATING ENGINEER us Norman Begum MD LAB BLOOD ORDERABLES F inal Result [facility] [place] [address] * (ABNORMAL) Lipid panel (08/23/2024 3:56 PM LUBRICATING ENGINEER) Cholesterol 147 30 - 199 mg/dL Comment: [...] on 2018. Triglycerides 49 <=149 mg/dL [facility] Comment: Interpretive Data Ages < or = [...] on 2018. HDL 39(L) >=40 mg/dL [facility] Comment: Interpretive Data Ages < or = [...] on 2018. LDL, calculated 97 <=129 mg/dL [facility] Comment: Interpretive Data Ages < or = [...] revised on 2024. Non-HDL Cholesterol 108 mg/dL [facility] Comment: Interpretive Data Ages < or = [...] last revised on 2018. Chol/HDL ratio 4 [facility] Blood 08/23/2024 3:56 PM LUBRICATING ENGINEER 08/23/2024 4:17 PM LUBRICATING ENGINEER us Norman Begum MD LAB BLOOD ORDERABLES F inal Result [facility] [place] [address] from Last 3 Months or Most Recently Relevant to Health Maintenance Insurance [facility] Advance Directives For more information, please contact: [phone] * Full Code (Latest Code Status on File) Date Activated Date Inactivated Comments 08/24/2024 7:52 AM 08/25/2024 8:10 PM Care Teams Heating Unit Mechanic Relationship Specialty Start Date End Date Sonia Stack DO PCP - General Family Medicine 03/23/22
--- NOTE | 2024-12-20 03:19 | ED.FEVER ---
HPI - Fever General Chief Complaint: Fever Stated Complaint: fever, body aches and chills Time Seen by Provider: 12/20/24 03:03 History of Present Illness HPI Narrative: 44-year-old male with a past medical history including morbid obesity, stage 3 kidney disease, hypertension, diabetes. Patient presents to the emergency department with complaints of generalized malaise, fever, chills, shortness a breath intermittent cough. Onset since Tuesday. He states that he feels some rattling in the right side of his chest and feels like a dry cough that he cannot get phlegm output. Endorses subjective fever and chills. States this feels similar to last time he was hospitalized a year ago. Denies any recent hospitalizations or your visits. No chest pain or abdominal pain. No urinary complaints such as dysuria urgency. Lives at home with his mom was present at bedside states that she has been having similar symptoms for last few days and went to urgent care for evaluation. Related Data Home Medications ?Medication ?Instructions ?Recorded ?Confirmed ?Last Taken ?Type acetaminophen 500 mg capsule 500 mg PO Q6H PRN Pain 09/24/19 12/03/24 Unknown History cholecalciferol (vitamin D3) 125 125 mcg PO DAILY 08/11/22 12/03/24 Unknown History mcg (5,000 unit) capsule ferrous sulfate 325 mg (65 mg 325 mg PO DAILY 08/11/22 12/03/24 Unknown History iron) tablet mecobalamin (vitamin B12) 1,000 1,000 mcg PO DAILY 08/11/22 12/03/24 Unknown History mcg lozenges ascorbate calcium (vitamin C) 500 500 mg PO DAILY 02/22/24 12/03/24 Unknown History mg tablet losartan 25 mg tablet 25 mg PO DAILY 09/05/24 12/03/24 Unknown History Allergies Allergy/AdvReac Type Severity Reaction Status Date / Time No Known Allergies Allergy Verified 12/03/24 15:02 Review of Systems Review of Systems: As reviewed above in HPI [facility] Past Medical History Medical History Hypokalemia Dehydration Class 3 severe obesity due to excess calories with body mass index (BMI) greater than or equal to 70 in adult Atrial fibrillation Anemia Hematuria Diabetes mellitus Essential (primary) hypertension Morbid (severe) obesity due to excess calories Obstructive sleep apnea (adult) (pediatric) Surgical History Surgical History H/O skin graft History of cystoscopy Family History Family History Mother Patient's mother is in good health Heart disease Afib Sibling Patient's sister is in good health Father Family history of cardiovascular disease Family history of chronic obstructive pulmonary disease Hypertension MRSA infection Social History Social History Social History: Caffeine-soda Smoking status: Never smoker Second hand tobacco smoke exposure: Yes Alcohol intake: current Alcohol use details: rarely Substance use: never Substance use type: does not use Do You Feel Safe in your Home?: Yes Lack of Transportation: No Lack of Food: Never True Current Housing: I Have Housing Concerned About Future Housing: No Difficulty Paying Gas/Electric Bills: No Difficulty Paying for Meds: No Currently Unemployed: YES Education: Bachelor's Degree Difficulty w/ Childcare or Family Care: No Living arrangements: with family Occupation/Education: other 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 Mucous membranes moist. NECK: Supple. CHEST: Coarse right-sided breath sounds compared to clear left-sided breath sounds without any end-expiratory wheezing or prolonged expiratory phase. No tachypnea. No tenderness to the chest wall. No overlying skin changes to the chest wall. HEART: [Regular rate and rhythm]. No murmur heard. [Normal peripheral pulses.] ABDOMEN: Morbidly obese but soft and nondistended, [nontender], [No rigidity or guarding] EXTREMITIES: Normal range of motion. No pitting edema SKIN: Warm, dry, no rash. NEURO: [No focal deficits]. Alert and oriented [x3.] PSYCH: [Normal mood and affect.] Course Vital Signs Vital signs: Vital Signs Temperature 37.1 C 12/20/24 03:05 Pulse Rate 114 H 12/20/24 03:05 Blood Pressure 169/97 H 12/20/24 03:05 Pulse Oximetry 98 12/20/24 03:05 Temperature 37.1 C 12/20/24 03:05 Pulse Rate 89 12/20/24 04:46 Respiratory Rate 19 12/20/24 04:46 Blood Pressure 138/87 12/20/24 04:46 Pulse Oximetry 98 12/20/24 04:46 MDM - Fever MDM Narrative Medical decision making narrative: 44-year-old morbidly obese gentleman with history of CKD, hypertension, diabetes presenting to the ER for subjective fever and chills as well as shortness of breath intermittent nonproductive cough since Tuesday. Patient has family member with similar symptoms at bedside. On examination he is morbidly obese but not any distress. Afebrile here and saturating well on room air. He has coarse right-sided breath sounds compared to clear left-sided breath sounds but no wheezing. Suspicion presently is for upper respiratory or lower respiratory infection potentially viral was bacterial in nature. Other causes include urinary tract infection or low suspicion for intra-abdominal pathology given no complaints of nausea vomiting abdominal pain constipation diarrhea and a soft nontender abdomen. Workup was ordered including CBC and CMP as well as a chest x-ray urinalysis. Viral panel swabs also obtained and he was given a fluid bolus. Patient's laboratory studies are reassuring without any leukocytosis or anemia. Platelet count around baseline. Electrolytes are unremarkable. Kidney function is around his baseline CKD. Normal glucose and LFTs. Urinalysis shows some red blood cells but no signs of a urinary infection. His previous urinalysis always seems to have red blood cells but does not grow anything on any recent cultures. Patient has no urinary symptoms. Patient's chest x-ray shows some stable cardiomegaly and bilateral airspace disease with hazy opacities worse on the right side consistent with his clinical exam and suspicion for pneumonia. Patient given a dose of azithromycin doxycycline for community-acquired pneumonia coverage will be sent home with Augmentin and doxycycline for continued care. Encouraged to take anti-inflammatory medications such as Tylenol for aches pains and fever as well as continued his antibiotic course with symptom controlling medications including guaifenesin and Tessalon Perles as needed. Patient instructed to call his primary care provider on outpatient basis for formal visit and return if he has any worsening or new/persisting concerns. Patient is safe for discharge home at this time after his repeat vital signs showed no acute abnormalities and normalization. Medical Records Attestation: I reviewed the patient's medical records. Lab Data Attestation: I reviewed the patient's lab results. 12/20/24 03:35 12/20/24 03:35 Labs: Lab Results 12/20/24 12/20/24 12/20/24 Range/Units 03:35 03:51 04:34 WBC 5.4 (4.5-10.0) K/mm3 RBC 4.28 L (4.6-6.20) M/mm3 Hgb 12.1 L (14.0-18.0) g/dL Hct 40.1 L (42.0-52.0) % MCV 93.7 (80-100) fl MCH 28.3 (26-34) pg MCHC 30.2 L (32-36) g/dl RDW 14.3 (11.5-14.5) % Plt Count 132 L (150-375) k/mm3 MPV 10.1 (7.4-10.4) fl Immature Gran % (Auto) 0.2 (0-0.5) % Neut % (Auto) 68.9 (45.5-73.1) % Lymph % (Auto) 12.0 L (18.3-44.2) % [place] % (Auto) 12.5 H (2.6-8.5) % Eos % (Auto) 6.0 H (0-4.4) % Baso % (Auto) 0.4 (0.2-1.2) % Lymph # (Auto) 0.64 L (0.9-3.2) K/mm3 [place] # (Auto) 0.7 H (0.1-0.6) K/mm3 Eos # (Auto) 0.3 (0-0.3) K/mm3 Baso # (Auto) 0.0 (0.0-0.1) K/mm3 Abs Immat Gran (auto) 0.01 (0.00-0.031) K/mm3 Absolute Neuts (auto) 3.7 (1.3-6.7) K/mm3 Absolute Nucleated RBC 0.000 (0.0-0.012) K/mm3 Nucleated RBC % 0.0 (0.0-0.2) % Sodium 139 (137-145) mmol/L Potassium 4.5 (3.4-5.0) mmol/L Chloride 107 (98-107) mmol/L Carbon Dioxide 26 (22-30) mmol/L Anion Gap 6 (4-12) mmol/L BUN 42 H (9-20) mg/dL Creatinine 2.04 H (0.7-1.3) mg/dL Estim Creat Clear Calc 103 ml/min Estimated GFR 36 L (59 - ) Glucose 129 H (65-110) mg/dL Calcium 8.7 (8.4-10.2) mg/dL Total Bilirubin 0.5 (0.2-1.3) mg/dL AST 34 (17-59) U/L ALT 25 (6-50) U/L Alkaline Phosphatase 63 (38-126) U/L Total Protein 7.0 (6.3-8.2) g/dL Albumin 3.7 (3.5-5.1) g/dL Urine Color Yellow (Yellow) Urine Appearance Clear (Clear) Urine pH 5.5 (5.0-9.0) Ur Specific [place] 1.013 (1.001-1.035) Urine Protein 3+ H (Negative) mg/dL Urine Glucose (UA) Negative (Negative) mg/dL Urine Ketones Negative (Negative) mg/dL Ur Blood (Man) 3+ H (Negative) Urine Nitrate Negative (Negative) Urine Bilirubin Negative (Negative) Urine Urobilinogen 0.2 (<2.0) mg/dL Leukocyte Esterase Rfl Trace H (Negative) CLEMENCIA/UL Urine RBC >100 H (0-2) /hpf Urine WBC 0-5 (0-3) /hpf Ur Squamous Epith Cells None seen (Few) /hpf Urine Bacteria None seen /hpf Urine Casts 0-2 Influenza A (RT-PCR) Negative (Negative) Influenza B (RT-PCR) Negative (Negative) RSV (RT-PCR) Negative (Negative) SARS-CoV-2 RNA (RT-PCR) Negative (Negative) Imaging Data Attestation: I personally reviewed and interpreted this imaging study as follows: My impression: Impressions Chest X-Ray 12/20/24 05:38 Impression: Hazy bilateral airspace disease, right lung worse than left. Correlate for asymmetric pulmonary edema versus bilateral pneumonia. Stable cardiomegaly. Discharge Plan Discharge Clinical Impression: Community acquired pneumonia, Non-productive cough, Subjective fever Patient Disposition: Home Condition: Stable Instructions: Antibiotic Form, Bacterial Pneumonia (ED) Additional Instructions: Your x-ray shows bacterial pneumonia which will treat with antibiotic coverage including 2 different types of antibiotics. Take Tylenol and anti-inflammatory medications for aches and pains. Follow-up with your regular doctor on a short-term basis. Return with any emergent or new concerns. Patient Language: Burkinan Prescriptions: New doxycycline hyclate 100 mg capsule 100 mg PO BID 7 Days Qty: 14 0RF amoxicillin-pot clavulanate 875-125 mg tablet 1 tablet PO Q12H 7 Days Qty: 14 0RF No Action acetaminophen 500 mg capsule 500 mg PO Q6H PRN (Reason: Pain) mecobalamin (vitamin B12) 1,000 mcg lozenge 1,000 mcg PO DAILY Rx Instructions: allow to dissolve in mouth OR may chew lightly before swallowing ferrous sulfate 325 mg (65 mg iron) tablet 325 mg PO DAILY cholecalciferol (vitamin D3) 125 mcg (5,000 unit) capsule 125 mcg PO DAILY (DME) CPAP Equipment See Rx Instructions .Route .MEDSUPPLY Qty: 1 0RF Rx Instructions: Rx: Resmed AutoPAP 5-17 cm H2O, CPAP mask/filters/tubing and humidifier chamber Dx: G47.33 Treatment Length: 99+ months *Please link me to the patient's CPAP machine through [facility]* Physician: Dr. Sonia Stack DO DME: [facility] ascorbate calcium (vitamin C) 500 mg tablet 500 mg PO DAILY losartan 25 mg tablet 25 mg PO DAILY aspirin 325 mg Tablet,Delayed Release (Dr/Ec) 325 mg PO QAM Qty: 30 0RF carvedilol 25 mg tablet 50 mg PO Q12H Qty: 120 5RF Rx Instructions: must administer with a meal/food citalopram 40 mg tablet See Rx Instructions .ROUTE .COMPLEX Qty: 90 0RF Dose Instruction: Take 1 tablet by mouth once daily Rx Instructions: Take 1 tablet by mouth once daily Follow-up/Referrals: Sonia Stack DO [Primary Care Provider] - Time of Disposition: 06:21
[2024-12-20 03:44] LABS: Basophils Percent Auto 0.4 % (0.2-1.2); Eosinophils Absolute Auto 0.3 K/mm3 (0-0.3); Hematocrit 40.1 % (42.0-52.0); Hemoglobin 12.1 g/dL (14.0-18.0); Immature Granulocyte Absolute 0.01 K/mm3 (0.00-0.031); Immature Granulocyte Percent A 0.2 % (0-0.5); Lymphocytes Absolute Auto 0.64 K/mm3 (0.9-3.2); Mean Corpuscular HGB Conc 30.2 g/dl (32-36); Mean Corpuscular Hemoglobin 28.3 pg (26-34); Mean Corpuscular Volume 93.7 fl (80-100); Mean Platelet Volume 10.1 fl (7.4-10.4); Monocytes Absolute Auto 0.7 K/mm3 (0.1-0.6); Monocytes Percent Auto 12.5 % (2.6-8.5); Neutrophils Absolute Auto 3.7 K/mm3 (1.3-6.7); Neutrophils Percent Auto 68.9 % (45.5-73.1); Platelet Count Result 132 k/mm3 (150-375); Red Blood Count 4.28 M/mm3 (4.6-6.20); Red Cell Distribution Width 14.3 % (11.5-14.5); White Blood Count 5.4 K/mm3 (4.5-10.0)
[2024-12-20 03:53] LABS: Alanine Aminotransferase 25 U/L (6-50); Albumin Level 3.7 g/dL (3.5-5.1); Alkaline Phosphatase 63 U/L (38-126); Anion Gap 6 mmol/L (4-12); Aspartate Amino Transferase 34 U/L (17-59); Bilirubin,Total 0.5 mg/dL (0.2-1.3); Blood Urea Nitrogen 42 mg/dL (9-20); Calcium 8.7 mg/dL (8.4-10.2); Carbon Dioxide 26 mmol/L (22-30); Chloride 107 mmol/L (98-107); Estimated CRCL calculation 103 ml/min; Estimated Glomerular Filt Rate 36; Glucose 129 mg/dL (65-110); Potassium 4.5 mmol/L (3.4-5.0); Sodium 139 mmol/L (137-145)
[2024-12-20] MEDS: LACTATED RINGERS 1,000 ML 999 ML IV CONT (04:01)
--- NOTE | 2024-12-20 04:08 | PC.NURSE ---
Pt made aware need urine sample, provided with cup.
[2024-12-20 04:32] LABS: Influenza A QL RT-PCR Negative (Negative); Influenza B QL RT-PCR Negative (Negative); RSV RNA, RT-PCR Negative (Negative); SARS-CoV-2 RNA PCR Negative (Negative)
--- OUTSIDE RECORDS SUMMARY | 2024-12-20 04:36 | XMS_ITS | Referral Summary ---
Author Organization [facility] Address [address] [place] [address] Care Team Providers Care Pattern Generator Operator Name Role Phone Fiona Stackzabeth Conchis WALKER Primary Care Provider + Encounters Date Type Department Care Team Description 09/24/2024 SHOP/CHAP Subsequent Outreach [facility] OP CASE MANAGEMENT [address] [place] [address] Latonia Mcnally RN from Last [...] (06/22/2022): Added automatically from request for surgery [id number] Social History Tobacco Use Types Packs/Day Years Used Date Smoking Tobacco: Never Smokeless Tobacco: Never Tobacco Cessation:Counseling Given: Not Answered [facility] Utilities Answer Date Recorded In the [...] often do you attend chur ch or hoahaoism services? Never 08/27/2024 Do you belong to any clubs o r organizations such as advent groups, unions, fraternal or athletic groups, or [...] any time in the past 12 m [facility], were you homeless or living in a skilled nursing (including now)? No 08/27/2024 Personal Safety Answer [...] Comments Blood Pressure 142/99 08/25/2024 11:05 AM SEPARATOR INSERTER Pulse 103 08/25/2024 11:05 AM SEPARATOR INSERTER Temperature 36.6 C (97.9 F) 08/25/2024 11:05 AM SEPARATOR INSERTER Respiratory Rate 18 08/25/2024 11:0 5 AM SEPARATOR INSERTER Oxygen Saturation 97% 08/25/2024 11: 05 AM SEPARATOR INSERTER Inhaled Oxygen Concentration - - Weight 304.2 kg (670 lb 11.2 oz) 2024 11:57 AM SEPARATOR INSERTER Height 182.9 cm (6') 08/24/2024 11:57 AM SEPARATOR INSERTER Body Mass Index 90.96 08/24/2024 11:57 AM SEPARATOR INSERTER Plan of Treatment Not on file Procedures Procedure Name Priority Date/Time Associated Diagnosis Comments EGFR Routine 08/25/2024 12:58 AM SEPARATOR INSERTER HEMOGLOBIN A1C STAT 08/23/2024 3:56 PM SEPARATOR INSERTER LIPID PANEL STAT 08/23/2024 3:56 PM SEPARATOR INSERTER from Last 3 Months or Most Recently Relevant to Health Maintenance Results * (ABNORMAL) eGFR (08/25/2024 12:58 AM SEPARATOR INSERTER) eGFR 44(L) >=60 mL/min/1. 73 m2 Comment: [...] reviewed 2021. Blood 08/25/2024 12:5 8 AM SEPARATOR INSERTER 08/25/2024 1:47 AM SEPARATOR INSERTER us Emma Marcial MD LAB BLOOD ORDERABLES Final R esult [facility] One [facility] Department [place] [address] * Hemoglobin A1c (08/23/2024 3:56 PM SEPARATOR INSERTER) Pathologist [facility] Hgb A1C 5.0 4.0 - 5.6 % Estimated Average Glucose 97 mg/dL [facility] Comment: The ADA recommends reporting an estimated Average Glucose (eAG) with all Hemoglobin A1c results using the equation derived from a study of 507 normal and diabetic adults. Minority populations were underrepresented and children were not included. (Diabetes Care 2020; 43(S1): S66-S76). The eAG is not equivalent to a fasting glucose. Blood 08/23/2024 3:56 PM SEPARATOR INSERTER 08/23/2024 4:23 PM SEPARATOR INSERTER us Norman Begum MD LAB BLOOD ORDERABLES F inal Result [facility] Department [place] [address] * (ABNORMAL) Lipid panel (08/23/2024 3:56 PM SEPARATOR INSERTER) Cholesterol 147 30 - 199 mg/dL Comment: [...] on 2018. Triglycerides 49 <=149 mg/dL [facility] Comment: Interpretive Data Ages < or [...] on 2018. HDL 39(L) >=40 mg/dL [facility] Comment: Interpretive Data Ages < or [...] on 2018. LDL, calculated 97 <=129 mg/dL [facility] Comment: Interpretive Data Ages < or [...] revised on 2024. Non-HDL Cholesterol 108 mg/dL [facility] Comment: Interpretive Data Ages < or = [...] last revised on 2018. Chol/HDL ratio 4 [facility] Blood 08/23/2024 3:56 PM SEPARATOR INSERTER 08/23/2024 4:17 PM SEPARATOR INSERTER us Norman Begum MD LAB BLOOD ORDERABLES F inal Result [facility] Department [place] [address] from Last 3 Months or Most Recently Relevant to Health Maintenance Insurance [facility] Advance Directives For more information, please contact: [phone] * Full Code (Latest Code Status on File) Date Activated Date Inactivated Comments 08/24/2024 7:52 AM 08/25/2024 8:10 PM Care Teams Pattern Generator Operator Relationship Specialty Start Date End Date Sonia Stack DO PCP - General Family Medicine 03/23/22
--- OUTSIDE RECORDS SUMMARY | 2024-12-20 04:36 | XMS_ITS | Clinical Summary ---
Author Organization [facility] Address [address] [place] [address] Care Team Providers Care Resident In Diagnostic Radiology Name Role Phone Fiona Stackzabeth Conchis WALKER [...] (06/22/2022): Added automatically from request for surgery [id number] Encounters Date Type Department Care Team Description 09/24/2024 SHOP/CHAP Subsequent Outreach [facility] OP CASE MANAGEMENT [address] [place] [id number] Latonia Mcnally RN from Last 3 Months [...] Tobacco: Never Tobacco Cessation:Counseling Given: Not Answered [facility] Utilities Answer Date Recorded In the past 12 months has [employer], gas, oil, or water [employer] threatened to shut off services in your [...] week 08/27/2024 How often do you attend [facility] or pentecostal services? Never 08/27/2024 Do you belong to any clubs o r organizations such as holiness groups, unions, fraternal or athletic groups, or [...] any time in the past 12 m [facility], were you homeless or living in a retirement (including now)? No 08/27/2024 Personal Safety Answer [...] Comments Blood Pressure 142/99 08/25/2024 11:05 AM ENTRY LEVEL ASSISTANT MANAGER Pulse 103 08/25/2024 11:05 AM ENTRY LEVEL ASSISTANT MANAGER Temperature 36.6 C (97.9 F) 08/25/2024 11:05 AM ENTRY LEVEL ASSISTANT MANAGER Respiratory Rate 18 08/25/2024 11:0 5 AM ENTRY LEVEL ASSISTANT MANAGER Oxygen Saturation 97% 08/25/2024 11: 05 AM ENTRY LEVEL ASSISTANT MANAGER Inhaled Oxygen Concentration - - Weight 304.2 kg (670 lb 11.2 oz) 2024 11:57 AM ENTRY LEVEL ASSISTANT MANAGER Height 182.9 cm (6') 08/24/2024 11:57 AM ENTRY LEVEL ASSISTANT MANAGER Body Mass Index 90.96 08/24/2024 11:57 AM ENTRY LEVEL ASSISTANT MANAGER Plan of Treatment Health Maintenance Due Date [...] Diagnosis Comments EGFR Routine 08/25/2024 12:58 AM ENTRY LEVEL ASSISTANT MANAGER HEMOGLOBIN A1C STAT 08/23/2024 3:56 PM ENTRY LEVEL ASSISTANT MANAGER LIPID PANEL STAT 08/23/2024 3:56 PM ENTRY LEVEL ASSISTANT MANAGER from Last 3 Months or Most Recently Relevant to Health Maintenance Results * (ABNORMAL) eGFR (08/25/2024 12:58 AM ENTRY LEVEL ASSISTANT MANAGER) eGFR 44(L) >=60 mL/min/1. 73 m2 Comment: [...] reviewed 2021. Blood 08/25/2024 12:5 8 AM ENTRY LEVEL ASSISTANT MANAGER 08/25/2024 1:47 AM ENTRY LEVEL ASSISTANT MANAGER Emma Marcial MD LAB BLOOD ORDERABLES Final R esult Performing Organization Address [facility] de Phone Number [facility], [place] [address] * Hemoglobin A1c (08/23/2024 3:56 PM ENTRY LEVEL ASSISTANT MANAGER) Pathologist [facility] Hgb A1C 5.0 4.0 - 5.6 % Estimated Average Glucose 97 mg/dL [facility] Comment: The ADA recommends reporting an estimated Average Glucose (eAG) with all Hemoglobin A1c results using the equation derived from a study of 507 normal and diabetic adults. Minority populations were underrepresented and children were not included. (Diabetes Care 2020; 43(S1): S66-S76). The eAG is not equivalent to a fasting glucose. Blood 08/23/2024 3:56 PM ENTRY LEVEL ASSISTANT MANAGER 08/23/2024 4:23 PM ENTRY LEVEL ASSISTANT MANAGER Norman Begum MD LAB BLOOD ORDERABLES F inal Result Performing Organization Address [facility] de Phone Number [facility] Department [place] [address] * (ABNORMAL) Lipid panel (08/23/2024 3:56 PM ENTRY LEVEL ASSISTANT MANAGER) Cholesterol 147 30 - 199 mg/dL Comment: [...] revised on 2018. Triglycerides 49 <=149 mg/dL [facility] Comment: Interpretive Data Ages < or [...] revised on 2018. HDL 39(L) >=40 mg/dL [facility] Comment: Interpretive Data Ages < or [...] 2018. LDL, calculated 97 <=129 mg/dL [facility] Comment: Interpretive Data Ages < or [...] on 2024. Non-HDL Cholesterol 108 mg/dL [facility] Comment: Interpretive Data Ages < or [...] last revised on 2018. Chol/HDL ratio 4 [facility] Blood 08/23/2024 3:56 PM ENTRY LEVEL ASSISTANT MANAGER 08/23/2024 4:17 PM ENTRY LEVEL ASSISTANT MANAGER us Norman Begum MD LAB BLOOD ORDERABLES F inal Result [facility] One [facility] Department [place] [address] from Last 3 Months or Most Recently Relevant to Health Maintenance Insurance [facility] Advance Directives For more information, please contact: [phone] * Full Code (Latest Code Status on File) Date Activated Date Inactivated Comments 08/24/2024 7:52 AM 08/25/2024 8:10 PM Care Teams Resident In Diagnostic Radiology Relationship Specialty Start Date End Date Sonia Stack DO PCP - General Family Medicine 03/23/22
[2024-12-20 04:47] LABS: Add Urine Microscopic? YES; Appearance Urine Clear (Clear); Bacteria Urine None Seen /hpf; Bilirubin Urine Negative (Negative); Blood Urine 3+ (Negative); Color Urine Yellow (Yellow); Glucose Urine UA Negative (Negative); Ketones Urine Negative (Negative); Leukocyte Esterase Ur Trace LEU/UL (Negative); Nitrate Urine Negative (Negative); Non Pathogenic Casts 0-2; Protein Urine 3+ mg/dL (Negative); RBC Urine >100 /hpf (0-2); Specific Grav Ur 1.013 (1.001-1.035); Squamous Epithelial Cell Urine None Seen /hpf (Few); Urobilinogen Urine 0.2 mg/dL (<2.0); WBC Urine 0-5 /hpf (0-3); pH Urine 5.5 (5.0-9.0)
[2024-12-20] MEDS: AZITHROMYCIN 500 MG/NS 250 ML 500 MG/250 ML BAG 250 MG IVPB (06:12)
[2024-12-20] MEDS: DOXYCYCLINE 100 MG/NS 100 ML 100 MG/100 ML BAG IVPB (07:34)
== END 2024-12-20 09:03 | disposition home or self-care (01) ==
PROVIDERS: Emergency Provider Student in an Organized Health Care Education/Training Program; PCP Family Medicine
DX: J18.9 Pneumonia, unspecified organism (principal); Z20.822 Contact with and (suspected) exposure to COVID-19; E11.22 Type 2 diabetes mellitus with diabetic chronic kidney disease; I12.9 Hypertensive chronic kidney disease with stage 1 through stage 4 chronic kidney disease, or unspecified chronic kidney disease; N18.30 Chronic kidney disease, stage 3 unspecified; I48.91 Unspecified atrial fibrillation; E66.813 Obesity, class 3; G47.33 Obstructive sleep apnea (adult) (pediatric); Z77.22 Contact with and (suspected) exposure to environmental tobacco smoke (acute) (chronic); I51.7 Cardiomegaly; Z68.45 Body mass index [BMI] 70 or greater, adult
CPT/HCPCS: 36415; 71045; 80053; 81001; 85025; 87637; 96361; 96365; 96367; 99284; J0456; J7120

== ENCOUNTER 2025-01-03 10:49 | Outpatient (NON) | payer OTHER, SELFPAY ==
--- OUTSIDE RECORDS SUMMARY | 2025-01-03 11:42 | XMS_ITS | Clinical Summary ---
Author Organization [facility] Address [address] [place] [address] Care Team Providers Care Support Services Specialist Name Role Phone Sonia Stack DO Primary Care Provider + Allergies No known [...] (06/22/2022): Added automatically from request for surgery [id number] Surgical History Surgery Date Site/Laterality Comments WISDOM [...] Tobacco: Never Tobacco Cessation:Counseling Given: Not Answered [facility] Utilities Answer Date Recorded In the [...] often do you attend chur ch or hindu services? Never 08/27/2024 Do you belong to any clubs o r organizations such as baptist groups, unions, fraternal or athletic groups, or [...] any time in the past [address] [facility], were you homeless or living in a snf (including now)? No 08/27/2024 Personal Safety Answer [...] Comments Blood Pressure 142/99 08/25/2024 11:05 AM FERMENTER Pulse 103 08/25/2024 11:05 AM FERMENTER Temperature 36.6 C (97.9 F) 08/25/2024 11:05 AM FERMENTER Respiratory Rate 18 08/25/2024 11:0 5 AM FERMENTER Oxygen Saturation 97% 08/25/2024 11: 05 AM FERMENTER Inhaled Oxygen Concentration - - Weight 304.2 kg (670 lb 11.2 oz) 2024 11:57 AM FERMENTER Height 182.9 cm (6') 08/24/2024 11:57 AM FERMENTER Body Mass Index 90.96 08/24/2024 11:57 AM FERMENTER Plan of Treatment Health Maintenance Due Date [...] Diagnosis Comments EGFR Routine 08/25/2024 12:58 AM FERMENTER HEMOGLOBIN A1C STAT 08/23/2024 3:56 PM FERMENTER LIPID PANEL STAT 08/23/2024 3:56 PM FERMENTER from Last 3 Months or Most Recently Relevant to Health Maintenance Results * (ABNORMAL) eGFR (08/25/2024 12:58 AM FERMENTER) eGFR 44(L) >=60 mL/min/1. 73 m2 Comment: [...] reviewed 2021. Blood 08/25/2024 12:5 8 AM FERMENTER 08/25/2024 1:47 AM FERMENTER us Emma Marcial MD LAB BLOOD ORDERABLES Final R esult Performing Organization Address [facility] de Phone Number [facility] Department [place] [address] * Hemoglobin A1c (08/23/2024 3:56 PM FERMENTER) Hgb A1C 5.0 4.0 - 5.6 % Estimated Average Glucose 97 mg/dL [facility] Comment: The ADA recommends reporting an estimated Average Glucose (eAG) with all Hemoglobin A1c results using the equation derived from a study of 507 normal and diabetic adults. Minority populations were underrepresented and children were not included. (Diabetes Care 2020; 43(S1): S66-S76). The eAG is not equivalent to a fasting glucose. Blood 08/23/2024 3:56 PM FERMENTER 08/23/2024 4:23 PM FERMENTER us Norman Begum MD LAB BLOOD ORDERABLES F inal Result Performing Organization Address [facility] de Phone Number [facility] Department [place] [address] * (ABNORMAL) Lipid panel (08/23/2024 3:56 PM FERMENTER) Pathologist [facility] Cholesterol 147 30 - 199 mg/dL Comment: [...] revised on 2018. Triglycerides 49 <=149 mg/dL [facility] Comment: Interpretive Data Ages < or [...] revised on 2018. HDL 39(L) >=40 mg/dL [facility] Comment: Interpretive Data Ages < or [...] on 2018. LDL, calculated 97 <=129 mg/dL [facility] Comment: Interpretive Data Ages < or [...] NCEP Expert Panel. Circulation 2004;110:227 3. Umang Valencia al. MISHA Cardiol. 2019November 22;5(5):540-548. doi: 10.1001/jamacardio.2020.0013 Current Interpretive Data was last revised on 2024. Non-HDL Cholesterol 108 mg/dL [facility] Comment: Interpretive Data Ages < or [...] last revised on 2018. Chol/HDL ratio 4 [facility] Blood 08/23/2024 3:56 PM FERMENTER 08/23/2024 4:17 PM FERMENTER us Norman Begum MD LAB BLOOD ORDERABLES F inal Result [facility] One [facility] Department [place] [address] from Last 3 Months or Most Recently Relevant [place] [id number] [facility] Advance Directives For more information, please contact: [phone] * Full Code (Latest Code Status on File) Date Activated Date Inactivated Comments 08/24/2024 7:52 AM 08/25/2024 8:10 PM Care Teams Support Services Specialist Relationship Specialty Start Date End Date Sonia Stack DO PCP - General Family Medicine 03/23/22
--- OUTSIDE RECORDS SUMMARY | 2025-01-03 11:43 | XMS_ITS | Referral Summary ---
Author Organization [facility] Address [address] [place] [address] Care Team Providers Care Fuel Conversion Technician Name Role Phone Sonia Stack DO Primary [...] (06/22/2022): Added automatically from request for surgery [id number] Social History Tobacco Use Types Packs/Day Years Used Date Smoking Tobacco: Never Smokeless Tobacco: Never Tobacco Cessation:Counseling Given: Not Answered [facility] Utilities Answer Date Recorded In the past 12 months has [employer], [employer], or [employer] threatened to shut off services in your [...] often do you attend chur ch or faith services? Never 08/27/2024 Do you belong to any clubs o r organizations such as orthodoxy groups, unions, fraternal or athletic groups, or [...] time in the past 12 m [facility], were you homeless or living [...] Comments Blood Pressure 142/99 08/25/2024 11:05 AM DEBURR TECHNICIAN Pulse 103 08/25/2024 11:05 AM DEBURR TECHNICIAN Temperature 36.6 C (97.9 F) 08/25/2024 11:05 AM DEBURR TECHNICIAN Respiratory Rate 18 08/25/2024 11:0 5 AM DEBURR TECHNICIAN Oxygen Saturation 97% 08/25/2024 11: 05 AM DEBURR TECHNICIAN Inhaled Oxygen Concentration - - Weight 304.2 kg (670 lb 11.2 oz) 2024 11:57 AM DEBURR TECHNICIAN Height 182.9 cm (6') 08/24/2024 11:57 AM DEBURR TECHNICIAN Body Mass Index 90.96 08/24/2024 11:57 AM DEBURR TECHNICIAN Plan of Treatment Not on file Procedures Procedure Name Priority Date/Time Associated Diagnosis Comments EGFR Routine 08/25/2024 12:58 AM DEBURR TECHNICIAN HEMOGLOBIN A1C STAT 08/23/2024 3:56 PM DEBURR TECHNICIAN LIPID PANEL STAT 08/23/2024 3:56 PM DEBURR TECHNICIAN from Last 3 Months or Most Recently Relevant to Health Maintenance Results * (ABNORMAL) eGFR (08/25/2024 12:58 AM DEBURR TECHNICIAN) eGFR 44(L) >=60 mL/min/1. 73 m2 Comment: [...] reviewed 2021. Blood 08/25/2024 12:5 8 AM DEBURR TECHNICIAN 08/25/2024 1:47 AM DEBURR TECHNICIAN Emma Marcial MD LAB BLOOD ORDERABLES Final R esult Performing Organization Address [facility] de Phone Number [facility] [place] [address] * Hemoglobin A1c (08/23/2024 3:56 PM DEBURR TECHNICIAN) [facility] Hgb A1C 5.0 4.0 - 5.6 [...] a fasting glucose. Blood 08/23/2024 3:56 PM DEBURR TECHNICIAN 08/23/2024 4:23 PM DEBURR TECHNICIAN Norman Begum MD LAB BLOOD ORDERABLES F inal Result Performing Organization Address [facility] Co de Phone Number [facility] [place] [address] * (ABNORMAL) Lipid panel (08/23/2024 3:56 PM DEBURR TECHNICIAN) Cholesterol 147 30 - 199 mg/dL Comment: [...] on 2018. Triglycerides 49 <=149 mg/dL [facility] Comment: Interpretive Data Ages < or = [...] Pediatrics 2011;128:S213 2. NCEP Expert Panel. Circulation 2003;110:227 Current Interpretive Data was last revised on 2018. HDL 39(L) >=40 mg/dL [facility] Comment: Interpretive Data Ages < or = [...] 2018. LDL, calculated 97 <=129 mg/dL [facility] Comment: Interpretive Data Ages < or = [...] revised on 2024. Non-HDL Cholesterol 108 mg/dL [facility] Comment: Interpretive Data Ages < or [...] last revised on 2018. Chol/HDL ratio 4 [facility] Blood 08/23/2024 3:56 PM DEBURR TECHNICIAN 08/23/2024 4:17 PM DEBURR TECHNICIAN Norman Begum MD LAB BLOOD ORDERABLES F inal Result [facility] One [facility] Department [place] [address] from Last 3 Months or Most Recently Relevant to Health Maintenance Insurance [facility] Advance Directives For more information, please contact: [phone] * Full Code (Latest Code Status on File) Date Activated Date Inactivated Comments 08/24/2024 7:52 AM 08/25/2024 8:10 PM Care Teams Fuel Conversion Technician Relationship Specialty Start Date End Date Sonia Stack DO PCP - General Family Medicine 03/23/22
[2025-01-03 20:19] LABS: Add Urine Microscopic? YES; Appearance Urine Cloudy (Clear); Bacteria Urine 4+ /hpf; Bilirubin Urine Negative (Negative); Blood Urine 3+ (Negative); Color Urine Yellow (Yellow); Glucose Urine UA Negative (Negative); Ketones Urine Negative (Negative); Leukocyte Esterase Ur 2+ LEU/UL (Negative); Nitrate Urine Negative (Negative); Non Pathogenic Casts 0-2; Protein Urine 2+ mg/dL (Negative); RBC Urine >100 /hpf (0-2); Squamous Epithelial Cell Urine None Seen /hpf (Few); Urobilinogen Urine 0.2 mg/dL (<2.0); WBC Urine >100 /hpf (0-3)
== END 2025-01-03 10:50 | disposition home or self-care (01) ==
LOC: ANHGOSHLAB 10:49
PROVIDERS: PCP Family Medicine; Visit Provider Family Medicine
DX: R31.9 Hematuria, unspecified (principal)
CPT/HCPCS: 81001; 87086; 87186

== ENCOUNTER 2025-01-24 10:32 | Outpatient (NON) | payer OTHER, SELFPAY ==
--- OUTSIDE RECORDS SUMMARY | 2025-01-24 10:38 | XMS_ITS | Clinical Summary ---
Author Organization [facility] Address [address] [place] [address] Care Team Providers Care Drum Operator Name Role Phone Sonia Stack DO [...] (06/22/2022): Added automatically from request for surgery [id number] Surgical History Surgery Date Site/Laterality Comments WISDOM [...] Tobacco: Never Tobacco Cessation:Counseling Given: Not Answered [facility] Utilities Answer Date Recorded In [...] often do you attend chur ch or christian services? Never 08/27/2024 Do you belong to any clubs o r organizations such as faith groups, unions, fraternal or athletic groups, or [...] time in the past 12 m [facility], were you homeless or living in a chcf (including now)? No 08/27/2024 Personal Safety Answer [...] Comments Blood Pressure 142/99 08/25/2024 11:05 AM CHECK PILOT Pulse 103 08/25/2024 11:05 AM CHECK PILOT Temperature 36.6 C (97.9 F) 08/25/2024 11:05 AM CHECK PILOT Respiratory Rate 18 08/25/2024 11:0 5 AM CHECK PILOT Oxygen Saturation 97% 08/25/2024 11: 05 AM CHECK PILOT Inhaled Oxygen Concentration - - Weight 304.2 kg (670 lb 11.2 oz) 2024 11:57 AM CHECK PILOT Height 182.9 cm (6') 08/24/2024 11:57 AM CHECK PILOT Body Mass Index 90.96 08/24/2024 11:57 AM CHECK PILOT Plan of Treatment Health Maintenance Due Date [...] Diagnosis Comments EGFR Routine 08/25/2024 12:58 AM CHECK PILOT HEMOGLOBIN A1C STAT 08/23/2024 3:56 PM CHECK PILOT LIPID PANEL STAT 08/23/2024 3:56 PM CHECK PILOT from Last 3 Months or Most Recently Relevant to Health Maintenance Results * (ABNORMAL) eGFR (08/25/2024 12:58 AM CHECK PILOT) eGFR 44(L) >=60 mL/min/1. 73 m2 Comment: [...] reviewed 2021. Blood 08/25/2024 12:5 8 AM CHECK PILOT 08/25/2024 1:47 AM CHECK PILOT us Emma Marcial MD LAB BLOOD ORDERABLES Final R esult Performing Organization Address [facility] de Phone Number [facility] [place] [address] * Hemoglobin A1c (08/23/2024 3:56 PM CHECK PILOT) Hgb A1C 5.0 4.0 - 5.6 % Estimated Average Glucose 97 mg/dL [facility] Comment: The ADA recommends reporting an estimated Average Glucose (eAG) with all Hemoglobin A1c results using the equation derived from a study of 507 normal and diabetic adults. Minority populations were underrepresented and children were not included. (Diabetes Care 2020; 43(S1): S66-S76). The eAG is not equivalent to a fasting glucose. Blood 08/23/2024 3:56 PM CHECK PILOT 08/23/2024 4:23 PM CHECK PILOT us Norman Begum MD LAB BLOOD ORDERABLES F inal Result Performing Organization Address [facility] de Phone Number [facility] [place] [address] * (ABNORMAL) Lipid panel (08/23/2024 3:56 PM CHECK PILOT) Pathologist [facility] Cholesterol 147 30 - 199 mg/dL Comment: [...] revised on 2018. Triglycerides 49 <=149 mg/dL [facility] Comment: Interpretive Data Ages < or = [...] revised on 2018. HDL 39(L) >=40 mg/dL [facility] Comment: Interpretive Data Ages < or = [...] on 2018. LDL, calculated 97 <=129 mg/dL [facility] Comment: Interpretive Data Ages < or = [...] revised on 2024. Non-HDL Cholesterol 108 mg/dL [facility] Comment: Interpretive Data Ages < or [...] last revised on 2018. Chol/HDL ratio 4 [facility] Blood 08/23/2024 3:56 PM CHECK PILOT 08/23/2024 4:17 PM CHECK PILOT us Norman Begum MD LAB BLOOD ORDERABLES F inal Result [facility] One [facility] [place] [address] from Last 3 Months or Most Recently Relevant to [place] [id number] [facility] Advance Directives For more information, please contact: [phone] * Full Code (Latest Code Status on File) Date Activated Date Inactivated Comments 08/24/2024 7:52 AM 08/25/2024 8:10 PM Care Teams Drum Operator Relationship Specialty Start Date End Date Sonia Stack DO PCP - General Family Medicine 03/23/22
--- OUTSIDE RECORDS SUMMARY | 2025-01-24 10:38 | XMS_ITS | Referral Summary ---
Author Organization [facility] Address [facility] [place] [address] Care Team Providers Care Branch Manager Trainee Name Role Phone Sonia Stack DO Primary [...] (06/22/2022): Added automatically from request for surgery [id number] Social History Tobacco Use Types Packs/Day Years Used Date Smoking Tobacco: Never Smokeless Tobacco: Never Tobacco Cessation:Counseling Given: Not Answered [facility] Utilities Answer Date Recorded In the past 12 months has [employer], or [employer] threatened to shut off services in your [...] often do you attend chur ch or baptism services? Never 08/27/2024 Do you belong to any clubs o r organizations such as mu-ism groups, unions, fraternal or athletic groups, or [...] any time in the past 12 m [facility], were you homeless or living in [...] Comments Blood Pressure 142/99 08/25/2024 11:05 AM GRINDER OPERATOR EXTERNAL TOOL Pulse 103 08/25/2024 11:05 AM GRINDER OPERATOR EXTERNAL TOOL Temperature 36.6 C (97.9 F) 08/25/2024 11:05 AM GRINDER OPERATOR EXTERNAL TOOL Respiratory Rate 18 08/25/2024 11:0 5 AM GRINDER OPERATOR EXTERNAL TOOL Oxygen Saturation 97% 08/25/2024 11: 05 AM GRINDER OPERATOR EXTERNAL TOOL Inhaled Oxygen Concentration - - Weight 304.2 kg (670 lb 11.2 oz) 2024 11:57 AM GRINDER OPERATOR EXTERNAL TOOL Height 182.9 cm (6') 08/24/2024 11:57 AM GRINDER OPERATOR EXTERNAL TOOL Body Mass Index 90.96 08/24/2024 11:57 AM GRINDER OPERATOR EXTERNAL TOOL Plan of Treatment Not on file Procedures Procedure Name Priority Date/Time Associated Diagnosis Comments EGFR Routine 08/25/2024 12:58 AM GRINDER OPERATOR EXTERNAL TOOL HEMOGLOBIN A1C STAT 08/23/2024 3:56 PM GRINDER OPERATOR EXTERNAL TOOL LIPID PANEL STAT 08/23/2024 3:56 PM GRINDER OPERATOR EXTERNAL TOOL from Last 3 Months or Most Recently Relevant to Health Maintenance Results * (ABNORMAL) eGFR (08/25/2024 12:58 AM GRINDER OPERATOR EXTERNAL TOOL) eGFR 44(L) >=60 mL/min/1. 73 m2 Comment: [...] reviewed 2021. Blood 08/25/2024 12:5 8 AM GRINDER OPERATOR EXTERNAL TOOL 08/25/2024 1:47 AM GRINDER OPERATOR EXTERNAL TOOL Emma Marcial MD LAB BLOOD ORDERABLES Final R esult Performing Organization Address [facility] de Phone Number [facility] [place] [address] * Hemoglobin A1c (08/23/2024 3:56 PM GRINDER OPERATOR EXTERNAL TOOL) [facility] Hgb A1C 5.0 4.0 - 5.6 % Estimated Average Glucose 97 mg/dL [facility] Comment: The ADA recommends reporting an estimated Average Glucose (eAG) with all Hemoglobin A1c results using the equation derived from a study of 507 normal and diabetic adults. Minority populations were underrepresented and children were not included. (Diabetes Care 2020; 43(S1): S66-S76). The eAG is not equivalent to a fasting glucose. Blood 08/23/2024 3:56 PM GRINDER OPERATOR EXTERNAL TOOL 08/23/2024 4:23 PM GRINDER OPERATOR EXTERNAL TOOL Norman Begum MD LAB BLOOD ORDERABLES F inal Result Performing Organization Address [facility] Co de Phone Number [facility] [place] [address] * (ABNORMAL) Lipid panel (08/23/2024 3:56 PM GRINDER OPERATOR EXTERNAL TOOL) Cholesterol 147 30 - 199 mg/dL Comment: [...] revised on 2024. Non-HDL Cholesterol 108 mg/dL [facility] Comment: Interpretive Data Ages < or [...] on 2018. Chol/HDL ratio 4 [facility] Blood 08/23/2024 3:56 PM GRINDER OPERATOR EXTERNAL TOOL 08/23/2024 4:17 PM GRINDER OPERATOR EXTERNAL TOOL Norman Begum MD LAB BLOOD ORDERABLES F inal Result [facility] Department [place] [address] from Last 3 Months or Most Recently Relevant to Health Maintenance Insurance [facility] Advance Directives For more information, please contact: [phone] * Full Code (Latest Code Status on File) Date Activated Date Inactivated Comments 08/24/2024 7:52 AM 08/25/2024 8:10 PM Care Teams Branch Manager Trainee Relationship Specialty Start Date End Date Sonia Stack DO PCP - General Family Medicine 03/23/22
[2025-01-24 12:55] LABS: Add Urine Microscopic? YES; Appearance Urine Cloudy (Clear); Glucose Urine UA Negative (Negative); Leukocyte Esterase Ur 3+ LEU/UL (Negative); Nitrate Urine Negative (Negative); Non Pathogenic Casts 0-2; Specific Grav Ur 1.009 (1.001-1.035)
== END 2025-01-24 10:33 | disposition home or self-care (01) ==
PROVIDERS: PCP Family Medicine; Visit Provider Family Medicine
DX: R30.0 Dysuria (principal)
CPT/HCPCS: 81001

== ENCOUNTER 2025-02-07 11:52 | Emergency (ER) | payer OTHER, SELFPAY ==
[2025-02-07 12:08] VITALS: BP 114/102; PULSE 90; RESP 18; TEMP 36.3; O2SAT 97
--- NOTE | 2025-02-07 12:12 | ED_ITS ---
HPI - Male Genitourinary General Chief complaint: Urogenital-Male Stated complaint: UTI Patient presents to the [facility] with complaints of continued urinary symptoms with nausea, abdominal pain, and intermittent left-sided back pain. Patient was evaluated by primary care physician on January 24 and gave a urine specimen they were waiting for urine culture on to see if he continued to need treatment for UTI. This urine culture was not resulted and patient was told to come to the [facility] to have another culture placed. Related Data Home Medications ?Medication ?Instructions ?Recorded ?Confirmed ?Last Taken ?Type acetaminophen 500 mg capsule 500 mg PO Q6H PRN Pain 09/24/19 01/03/25 Unknown History cholecalciferol (vitamin D3) 125 125 mcg PO DAILY 08/11/22 01/03/25 Unknown History mcg (5,000 unit) capsule ferrous sulfate 325 mg (65 mg 325 mg PO DAILY 08/11/22 01/03/25 Unknown History iron) tablet mecobalamin (vitamin B12) 1,000 1,000 mcg PO DAILY 08/11/22 01/03/25 Unknown History mcg lozenges ascorbate calcium (vitamin C) 500 500 mg PO DAILY 02/22/24 01/03/25 Unknown History mg tablet losartan 25 mg tablet 25 mg PO DAILY 09/05/24 01/03/25 Unknown History Allergies Allergy/AdvReac Type Severity Reaction Status Date / Time No Known Allergies Allergy Verified 01/03/25 10:17 Review of Systems Constitutional: Constitutional: Reports as per HPI, Denies chills, Denies fatigue, Denies fever(s) and Denies weakness Eyes: Eyes: Reports no additional eye complaints ENT: Reports system reviewed and no additional complaints, except as documented Cardiovascular: Cardiovascular: Reports no additional cardiovascular complaints Respiratory: Respiratory: Reports no additional respiratory complaints Gastrointestinal: Gastrointestinal: Reports as per HPI, Denies abdominal pain, Denies bloating, Denies constipation, Denies heartburn, Denies diarrhea, Reports nausea and Denies vomiting Genitourinary: Genitourinary: Reports as per HPI, Denies hematuria, Denies oliguria, Reports dysuria, Denies penile discharge, Denies testicular pain, Reports urinary frequency and Denies urinary incontinence Musculoskeletal: Musculoskeletal: Reports as per HPI and Reports back pain Integumentary/Breasts: Skin/Breast: Reports system reviewed and no additional complaints, except as docu Neurologic: Reports system reviewed and no additional complaints, except as documented Psychiatric: Psychiatric: Reports no additional psychiatric complaints Endocrine: Endocrine: Reports no additional endocrine complaints Hematologic/Lymphatic: Hematologic/Lymphatic: Reports no additional hematologic/lymphatic complaints Allergic/Immunologic: Allergic/Immunologic: Reports no additional allergic/immunologic complaints PMFSH Past Medical History Medical History Hypokalemia Dehydration Class 3 severe obesity due to excess calories with body mass index (BMI) greater than or equal to 70 in adult Atrial fibrillation Anemia Hematuria Diabetes mellitus Essential (primary) hypertension Morbid (severe) obesity due to excess calories Obstructive sleep apnea (adult) (pediatric) Surgical History Surgical History H/O skin graft History of cystoscopy Family History Family History Mother Patient's mother is in good health Heart disease Afib Sibling Patient's sister is in good health Father Family history of cardiovascular disease Family history of chronic obstructive pulmonary disease Hypertension MRSA infection Social History Social History Social History: Caffeine-soda Smoking status: Never smoker Second hand tobacco smoke exposure: Yes Alcohol intake: current Alcohol use details: rarely Substance use: never Substance use type: does not use Do You Feel Safe in your Home?: Yes Lack of Transportation: No Lack of Food: Never True Current Housing: I Have Housing Concerned About Future Housing: No Difficulty Paying Gas/Electric Bills: No Difficulty Paying for Meds: No Currently Unemployed: YES Education: Bachelor's Degree Difficulty w/ Childcare or Family Care: No Living arrangements: with family Occupation/Education: other 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 Gender identity (if verbalized by the patient): Male Spiritual care concerns: No Exam Const: General: healthy appearing and no acute distress Nutritional Appearance: well nourished Limitations: no limitations Resp: Effort & Inspection: normal respiratory effort Auscultation: clear to auscultation bilaterally Cardio: Rate: regular rate Rhythm: regular rhythm GI: GI Palp: Yes Soft to palpation, No Tenderness to palpation present (GI), No Guarding due to palpation present (GI), No Rigid due to palpation, No Hernia present and No Rebound tenderness present : General: Yes bladder normal to palpation and Yes no CVA tenderness Back/Spine/Pelvis: Back: no CVA tenderness Skin: General skin exam: normal color Rashes: no rashes Wounds: no wounds Psych: Mental Status: mental status grossly normal Affect: normal affect Attitude: cooperative Course Course Level of Care: Express Care Visit Vital Signs Vital signs: Vital Signs Temperature 97.4 F L 02/07/25 12:08 Pulse Rate 90 02/07/25 12:08 Respiratory Rate 18 02/07/25 12:08 Blood Pressure 114/102 H 02/07/25 12:08 Pulse Oximetry 97 02/07/25 12:08 Temperature 97.4 F L 02/07/25 12:08 Pulse Rate 90 02/07/25 12:08 Respiratory Rate 18 02/07/25 12:08 Blood Pressure 114/102 H 02/07/25 12:08 Pulse Oximetry 97 02/07/25 12:08 MDM - Male Genitourinary MDM Narrative Medical decision making narrative: Due to patient's size patient was given at home urine specimen cup and wipes to bring in a urine specimen if needed due to history of frequent UTIs. Patient is brought this in with him. Discharge instructions reviewed with patient, as well as provided in writing per nursing staff. The instructions also include specific and strict return/GO TO THE ER as well as f/u information. All questions have been answered, and the patient deny any further questions with discharge and discharge plan. Differential Diagnosis Differential diagnosis: Likely urinary tract infection, urethritis, epididymitis, prostatitis and acute retention of urine Medical Records Attestation: I reviewed the patient's medical records. Lab Data Attestation: I reviewed the patient's lab results. Labs: Lab Results 02/07/25 Range/Units 12:22 POC Urine Color Light/pale POC Urine Clarity Cloudy POC Urine pH 5.5 POC Ur Specif Albin 1.015 POC Urine Protein 1+ (Negative) POC Ur Glucose (UA) Negative (Negative) POC Urine Ketones Negative (Negative) POC Urine Blood 3+ (Negative) POC Urine Nitrite Negative (Negative) POC Urine Bilirubin Negative (Negative) POC Urine Urobilinogen 0.2 POC U Leukocyte Esteras 2+ (Negative) Discharge Plan Discharge Clinical Impression: Dysuria Patient Disposition: Home Condition: Stable Instructions: Antibiotic Form, Dysuria (ED) Additional Instructions: We will send a urine culture off to the lab; if the culture identifies an organism that the prescribed antibiotic will not treat, you will receive a phone call from an urgent care staff member and an appropriate antibiotic will be prescribed. -Your symptoms should begin to improve within a day of starting antibiotics. But you should finish all the antibiotic pills you get. Otherwise your infection might come back. -Also recommend: drink more fluid. It might help flush out germs, and it does no harm -Tylenol/ibuprofen as needed for pain -Follow-up with your primary care provider for urine recheck OR if your symptoms persist, change or worsen significantly before you can contact your personal physician then please, without delay, go to the emergency department for further evaluation. Patient Language: Indonesian Prescriptions: New nitrofurantoin monohyd/m-cryst [Macrobid] 100 mg capsule 100 mg PO Q12H 5 Days Qty: 10 0RF Rx Instructions: must administer with a meal/food No Action Zepbound 2.5 mg/0.5 mL pen injector 2.5 mg subcut WEEKLY Qty: 2 0RF Rx Instructions: for 4 weeks acetaminophen 500 mg capsule 500 mg PO Q6H PRN (Reason: Pain) mecobalamin (vitamin B12) 1,000 mcg lozenge 1,000 mcg PO DAILY Rx Instructions: allow to dissolve in mouth OR may chew lightly before swallowing ferrous sulfate 325 mg (65 mg iron) tablet 325 mg PO DAILY cholecalciferol (vitamin D3) 125 mcg (5,000 unit) capsule 125 mcg PO DAILY (DME) CPAP Equipment See Rx Instructions .Route .MEDSUPPLY Qty: 1 0RF Rx Instructions: Rx: Resmed AutoPAP 5-17 cm H2O, CPAP mask/filters/tubing and humidifier chamber Dx: G47.33 Treatment Length: 99+ months *Please link me to the patient's CPAP machine through [facility]* Physician: Dr. Sonia Stakc DO DME: [place] [facility] ascorbate calcium (vitamin C) 500 mg tablet 500 mg PO DAILY losartan 25 mg tablet 25 mg PO DAILY aspirin 325 mg Tablet,Delayed Release (Dr/Ec) 325 mg PO QAM Qty: 30 0RF carvedilol 25 mg tablet 50 mg PO Q12H Qty: 120 5RF Rx Instructions: must administer with a meal/food citalopram 40 mg tablet See Rx Instructions .ROUTE .COMPLEX Qty: 90 0RF Dose Instruction: Take 1 tablet by mouth once daily Rx Instructions: Take 1 tablet by mouth once daily levofloxacin 250 mg tablet 250 mg PO .COMPLEX Qty: 8 0RF Rx Instructions: Take 2 tabs on Day 1 and then 1 tablet by mouth daily for 6 days Follow-up/Referrals: Sonia Stack DO [Primary Care Provider] - Time of Disposition: 12:31
[2025-02-07 12:25] LABS: EDUAAPPEAR Cloudy; EDUABILI Negative (Negative); EDUABLOOD 3+ (Negative); EDUACOLOR1 Light/Pale; EDUAGLUCOSE Negative (Negative); EDUAKETONE Negative (Negative); EDUALEUKO 2+ (Negative); EDUANITRATE Negative (Negative); EDUAPH 5.5; EDUAPROTEIN 1+ (Negative); EDUASPGRAVITY 1.015; EDUAUROBILI 0.2
== END 2025-02-07 12:36 | disposition home or self-care (01) ==
PROVIDERS: Emergency Provider Nurse Practitioner Family; PCP Family Medicine
DX: R30.0 Dysuria (principal); E11.9 Type 2 diabetes mellitus without complications; I10 Essential (primary) hypertension
CPT/HCPCS: 81003; 87086; 99213; G0463

== ENCOUNTER 2025-02-20 10:58 | Outpatient (NON) | payer OTHER, SELFPAY ==
--- OUTSIDE RECORDS SUMMARY | 2025-02-20 11:28 | XMS_ITS | Referral Summary ---
Author Organization [facility] Address [address] [place] [id number] Care Team Providers Care Duck Operator Name Role Phone Sonia Stack DO [...] (06/22/2022): Added automatically from request for surgery [id number] Social History Tobacco Use Types Packs/Day Years Used Date Smoking Tobacco: Never Smokeless Tobacco: Never Tobacco Cessation:Counseling Given: Not Answered [facility] Utilities Answer Date Recorded In the past 12 months has [employer], [employer], or [employer] threatened to shut off services in your [...] often do you attend chur ch or yazidism services? Never 08/27/2024 Do you belong to any clubs o r organizations such as denominational groups, unions, fraternal or athletic groups, or [...] any time in the past 12 m [facility], were you homeless or living in a alf (including now)? No 08/27/2024 Personal Safety Answer [...] Comments Blood Pressure 142/99 08/25/2024 11:05 AM FOREST LANDSCAPE ECOLOGY PROFESSOR Pulse 103 08/25/2024 11:05 AM FOREST LANDSCAPE ECOLOGY PROFESSOR Temperature 36.6 C (97.9 F) 08/25/2024 11:05 AM FOREST LANDSCAPE ECOLOGY PROFESSOR Respiratory Rate 18 08/25/2024 11:0 5 AM FOREST LANDSCAPE ECOLOGY PROFESSOR Oxygen Saturation 97% 08/25/2024 11: 05 AM FOREST LANDSCAPE ECOLOGY PROFESSOR Inhaled Oxygen Concentration - - Weight 304.2 kg (670 lb 11.2 oz) 2024 11:57 AM FOREST LANDSCAPE ECOLOGY PROFESSOR Height 182.9 cm (6') 08/24/2024 11:57 AM FOREST LANDSCAPE ECOLOGY PROFESSOR Body Mass Index 90.96 08/24/2024 11:57 AM FOREST LANDSCAPE ECOLOGY PROFESSOR Plan of Treatment Not on file Procedures Procedure Name Priority Date/Time Associated Diagnosis Comments EGFR Routine 08/25/2024 12:58 AM FOREST LANDSCAPE ECOLOGY PROFESSOR HEMOGLOBIN A1C STAT 08/23/2024 3:56 PM FOREST LANDSCAPE ECOLOGY PROFESSOR LIPID PANEL STAT 08/23/2024 3:56 PM FOREST LANDSCAPE ECOLOGY PROFESSOR from Last 3 Months or Most Recently Relevant to Health Maintenance Results * (ABNORMAL) eGFR (08/25/2024 12:58 AM FOREST LANDSCAPE ECOLOGY PROFESSOR) eGFR 44(L) >=60 mL/min/1. 73 m2 Comment: [...] reviewed 2021. Blood 08/25/2024 12:5 8 AM FOREST LANDSCAPE ECOLOGY PROFESSOR 08/25/2024 1:47 AM FOREST LANDSCAPE ECOLOGY PROFESSOR Emma Marcial MD LAB BLOOD ORDERABLES Final R esult Performing Organization Address [facility] de Phone Number [facility] [place] [address] * Hemoglobin A1c (08/23/2024 3:56 PM FOREST LANDSCAPE ECOLOGY PROFESSOR) [facility] Hgb A1C 5.0 4.0 - 5.6 % Estimated Average Glucose 97 mg/dL [facility] Comment: The ADA recommends reporting an estimated Average Glucose (eAG) with all Hemoglobin A1c results using the equation derived from a study of 507 normal and diabetic adults. Minority populations were underrepresented and children were not included. (Diabetes Care 2020; 43(S1): S66-S76). The eAG is not equivalent to a fasting glucose. Blood 08/23/2024 3:56 PM FOREST LANDSCAPE ECOLOGY PROFESSOR 08/23/2024 4:23 PM FOREST LANDSCAPE ECOLOGY PROFESSOR Norman Begum MD LAB BLOOD ORDERABLES F inal Result Performing Organization Address [facility] Co de Phone Number [facility] [place] [address] * (ABNORMAL) Lipid panel (08/23/2024 3:56 PM FOREST LANDSCAPE ECOLOGY PROFESSOR) Cholesterol 147 30 - 199 mg/dL Comment: [...] on 2024. Non-HDL Cholesterol 108 mg/dL [facility] Comment: Interpretive Data Ages < or [...] revised on 2018. Chol/HDL ratio 4 [facility] Blood 08/23/2024 3:56 PM FOREST LANDSCAPE ECOLOGY PROFESSOR 08/23/2024 4:17 PM FOREST LANDSCAPE ECOLOGY PROFESSOR Norman Begum MD LAB BLOOD ORDERABLES F inal Result [facility] [place] [address] from Last 3 Months or Most Recently Relevant to Health Maintenance Insurance [facility] Advance Directives For more information, please contact: [phone] * Full Code (Latest Code Status on File) Date Activated Date Inactivated Comments 08/24/2024 7:52 AM 08/25/2024 8:10 PM Care Teams Duck Operator Relationship Specialty Start Date End Date Sonia Stack DO PCP - General Family Medicine 03/23/22
--- OUTSIDE RECORDS SUMMARY | 2025-02-20 11:28 | XMS_ITS | Clinical Summary ---
Author Organization [facility] Address [address] [place] [address] Care Team Providers Care Dirt Supervisor Name Role Phone Sonia Stack DO Primary [...] (06/22/2022): Added automatically from request for surgery [id number] Surgical History Surgery Date Site/Laterality Comments WISDOM [...] Tobacco: Never Tobacco Cessation:Counseling Given: Not Answered [facility] Utilities Answer Date Recorded In the [...] any clubs o r organizations such as restoration groups, unions, fraternal or athletic groups, or [...] time in the past 12 m [facility], were you homeless or living in a [...] Comments Blood Pressure 142/99 08/25/2024 11:05 AM SENIOR VALIDATION ENGINEER Pulse 103 08/25/2024 11:05 AM SENIOR VALIDATION ENGINEER Temperature 36.6 C (97.9 F) 08/25/2024 11:05 AM SENIOR VALIDATION ENGINEER Respiratory Rate 18 08/25/2024 11:0 5 AM SENIOR VALIDATION ENGINEER Oxygen Saturation 97% 08/25/2024 11: 05 AM SENIOR VALIDATION ENGINEER Inhaled Oxygen Concentration - - Weight 304.2 kg (670 lb 11.2 oz) 2024 11:57 AM SENIOR VALIDATION ENGINEER Height 182.9 cm (6') 08/24/2024 11:57 AM SENIOR VALIDATION ENGINEER Body Mass Index 90.96 08/24/2024 11:57 AM SENIOR VALIDATION ENGINEER Plan of Treatment Health Maintenance Due Date Last Done Comments Albumin Creatinine Ratio, Urine 1980 Depression Screening 1980 Hepatitis C Screening 1980 Dilated Eye Exam 1980 Foot Exam 1980 DTaP/Tdap/Td Vaccine (1 - Tdap) 1991 Varicella Vaccines (1 of 2 - 13+ 2-dose series) 1993 Hepatitis B Screening 1998 Regular Well Visit/Exam 18-64 1998 Pneumococcal vaccine <65 (1 of 2 - PCV) 1999 HPV Vaccines (1 - 3-dose SCDM series) 2007 Covid-19 Vaccine (3 - season) 2024, 09/25/2020 Hemoglobin A1C 02/21/2025 08/24/2024, 08/23/2024 Influenza Vaccine (#1) 2025 Lipid Panel 08/24/2025 08/24/2024, 08/23/2024 eGFR 08/25/2025 08/25/2024, 07/27, 06/11/2022 Procedures Procedure Name Priority Date/Time Associated Diagnosis Comments EGFR Routine 08/25/2024 12:58 AM SENIOR VALIDATION ENGINEER HEMOGLOBIN A1C STAT 08/23/2024 3:56 PM SENIOR VALIDATION ENGINEER LIPID PANEL STAT 08/23/2024 3:56 PM SENIOR VALIDATION ENGINEER from Last 3 Months or Most Recently Relevant to Health Maintenance Results * (ABNORMAL) eGFR (08/25/2024 12:58 AM SENIOR VALIDATION ENGINEER) eGFR 44(L) >=60 mL/min/1. 73 m2 [...] reviewed 2021. Blood 08/25/2024 12:5 8 AM SENIOR VALIDATION ENGINEER 08/25/2024 1:47 AM SENIOR VALIDATION ENGINEER us Emma Marcial MD LAB BLOOD ORDERABLES Final R esult Performing Organization Address [facility] [address]/[facility] de Phone Number [facility] [place] [address] * Hemoglobin A1c (08/23/2024 3:56 PM SENIOR VALIDATION ENGINEER) Hgb A1C 5.0 4.0 - 5.6 % Estimated Average Glucose 97 mg/dL [facility] Comment: The ADA recommends reporting an estimated Average Glucose (eAG) with all Hemoglobin A1c results using the equation derived from a study of 507 normal and diabetic adults. Minority populations were underrepresented and children were not included. (Diabetes Care 2020; 43(S1): S66-S76). The eAG is not equivalent to a fasting glucose. Blood 08/23/2024 3:56 PM SENIOR VALIDATION ENGINEER 08/23/2024 4:23 PM SENIOR VALIDATION ENGINEER us Norman Begum MD LAB BLOOD ORDERABLES F inal Result Performing Organization Address [facility] [address]/[facility] de Phone Number [facility] Department [place] [address] * (ABNORMAL) Lipid panel (08/23/2024 3:56 PM SENIOR VALIDATION ENGINEER) Cholesterol 147 30 - 199 mg/dL [...] revised on 2018. Triglycerides 49 <=149 mg/dL [facility] Comment: Interpretive Data Ages < [...] on 2018. HDL 39(L) >=40 mg/dL [facility] Comment: Interpretive Data Ages < or [...] 2018. LDL, calculated 97 <=129 mg/dL [facility] Comment: Interpretive Data Ages < or [...] revised on 2024. Non-HDL Cholesterol 108 mg/dL [facility] Comment: Interpretive Data Ages < or [...] last revised on 2018. Chol/HDL ratio 4 [facility] Blood 08/23/2024 3:56 PM SENIOR VALIDATION ENGINEER 08/23/2024 4:17 PM SENIOR VALIDATION ENGINEER us Norman Begum MD LAB BLOOD ORDERABLES F inal Result [facility] Department [place] [address] from Last 3 Months or Most Recently Relevant to [place] [id number] [facility] Advance Directives For more information, please contact: [phone] * Full Code (Latest Code Status on File) Date Activated Date Inactivated Comments 08/24/2024 7:52 AM 08/25/2024 8:10 PM Care Teams Dirt Supervisor Relationship Specialty Start Date End Date Sonia Stack DO PCP - General Family Medicine 03/23/22
[2025-02-20 19:54] LABS: Add Urine Microscopic? YES; Appearance Urine Cloudy (Clear); Glucose Urine UA Negative (Negative); Leukocyte Esterase Ur Negative LEU/UL (Negative); Nitrate Urine Negative (Negative); Non Pathogenic Casts 0-2; Specific Grav Ur 1.010 (1.001-1.035)
== END 2025-02-20 10:59 | disposition home or self-care (01) ==
LOC: ANHGOSHLAB 11:00
PROVIDERS: PCP Family Medicine; Visit Provider Family Medicine
DX: N39.0 Urinary tract infection, site not specified (principal)
CPT/HCPCS: 81001; 87086

== ENCOUNTER 2025-04-01 13:50 | Outpatient (CLI) | payer OTHER, SELFPAY ==
--- OUTSIDE RECORDS SUMMARY | 2025-04-01 13:54 | XMS_ITS | Clinical Summary ---
Author Organization [facility] Address [address] [place] [address] Care Team Providers Care Inter Fold Roll Cutter Name Role Phone Sonia Stack DO Primary [...] (06/22/2022): Added automatically from request for surgery [id number] Surgical History Surgery Date Site/Laterality Comments WISDOM [...] Tobacco: Never Tobacco Cessation:Counseling Given: Not Answered [facility] Utilities Answer Date Recorded In the past 12 months has th e electric, gas, oil, or water company threatened to shut off services in your home? No 08/27/2024 Social Connection and Isolation Panel Answer Date Recorded In a typical week, how many times do you talk on the phone with family, friends, or neighbors? Three times a week 08/27/2024 How often do you get togethe r with friends or relatives? Three times a week 08/27/2024 How often do you attend chur ch or synagogue services? Never 08/27/2024 Do you belong to [...] any time in the past 12 m [facility], were you homeless or living in a prison (including now)? No 08/27/2024 Personal Safety Answer [...] Comments Blood Pressure 142/99 08/25/2024 11:05 AM BED LABORER Pulse 103 08/25/2024 11:05 AM BED LABORER Temperature 36.6 C (97.9 F) 08/25/2024 11:05 AM BED LABORER Respiratory Rate 18 08/25/2024 11:0 5 AM BED LABORER Oxygen Saturation 97% 08/25/2024 11: 05 AM BED LABORER Inhaled Oxygen Concentration - - Weight 304.2 kg (670 lb 11.2 oz) 2024 11:57 AM BED LABORER Height 182.9 cm (6') 08/24/2024 11:57 AM BED LABORER Body Mass Index 90.96 08/24/2024 11:57 AM BED LABORER Plan of Treatment Health Maintenance Due Date [...] - 3-dose SCDM series) 2007 Covid-19 Vaccine ( - season) 2024, 09/25/2020 Hemoglobin A1C 02/21/2025 08/24/2024, 08/23/2024 Influenza Vaccine (#1) 2025 Lipid Panel 08/24/2025 08/24/2024, 08/23/2024 eGFR 08/25/2025 08/25/2024, 07/27, 06/11/2022 Procedures Procedure Name Priority Date/Time Associated Diagnosis Comments EGFR Routine 08/25/2024 12:58 AM BED LABORER HEMOGLOBIN A1C STAT 08/23/2024 3:56 PM BED LABORER LIPID PANEL STAT 08/23/2024 3:56 PM BED LABORER from Last 3 Months or Most Recently Relevant to Health Maintenance Results * (ABNORMAL) eGFR (08/25/2024 12:58 AM BED LABORER) eGFR 44(L) >=60 mL/min/1. 73 m2 Comment: [...] reviewed 2021. Blood 08/25/2024 12:5 8 AM BED LABORER 08/25/2024 1:47 AM BED LABORER Emma Marcial MD LAB BLOOD ORDERABLES Final R esult Performing Organization Address [facility] de Phone Number [facility] Department [place] [address] * Hemoglobin A1c (08/23/2024 3:56 PM BED LABORER) Pathologist [facility] [place] Hgb A1C 5.0 4.0 - 5.6 % Estimated Average Glucose 97 mg/dL [facility] Comment: The ADA recommends reporting an estimated Average Glucose (eAG) with all Hemoglobin A1c results using the equation derived from a study of 507 normal and diabetic adults. Minority populations were underrepresented and children were not included. (Diabetes Care 2020; 43(S1): S66-S76). The eAG is not equivalent to a fasting glucose. Blood 08/23/2024 3:56 PM BED LABORER 08/23/2024 4:23 PM BED LABORER Norman Begum MD LAB BLOOD ORDERABLES F inal Result Performing Organization Address [facility] de Phone Number [facility] Department [place] [address] * (ABNORMAL) Lipid panel (08/23/2024 3:56 PM BED LABORER) Pathologist [facility] [place] Cholesterol 147 30 - 199 mg/dL Comment: [...] revised on 2018. Triglycerides 49 <=149 mg/dL [facility] Comment: Interpretive Data Ages < [...] on 2018. HDL 39(L) >=40 mg/dL [facility] Comment: Interpretive Data Ages < or = [...] 2004;110:227 3. Umang Valencia al. MISHA Cardiol. 2020 November 22;5(5):540-548. doi: [email or web address].2020.0013 Current Interpretive Data was last revised on 2024. Non-HDL Cholesterol 108 mg/dL [facility] Comment: Interpretive Data Ages < [...] revised on 2018. Chol/HDL ratio 4 [facility] Blood 08/23/2024 3:56 PM BED LABORER 08/23/2024 4:17 PM BED LABORER Norman Begum MD LAB BLOOD ORDERABLES F inal Result [facility] Department [place] [address] from Last 3 Months or Most Recently Relevant to Health Maintenance Insurance [facility] Advance Directives For more information, please contact: [phone] * Full Code (Latest Code Status on File) Date Activated Date Inactivated Comments 08/24/2024 7:52 AM 08/25/2024 8:10 PM Care Teams Inter Fold Roll Cutter Relationship Specialty Start Date End Date Sonia Stack DO PCP - General Family Medicine 03/23/22
[2025-04-01 18:45] LABS: Albumin Level 3.6 g/dL (3.5-5.1); Anion Gap 8 mmol/L (4-12); Blood Urea Nitrogen 57 mg/dL (9-20); Calcium 9.0 mg/dL (8.4-10.2); Carbon Dioxide 26 mmol/L (22-30); Chloride 106 mmol/L (98-107); Estimated Glomerular Filt Rate 32; Glucose 95 mg/dL (65-110); Potassium 4.1 mmol/L (3.4-5.0); Sodium 140 mmol/L (137-145)
[2025-04-01 19:52] LABS: Total Protein Urine Random 20 mg/dL; Ur Ttl Prot Creatinine Ratio 0.29 mg/mg (0-0.20)
== END 2025-04-01 13:51 | disposition home or self-care (01) ==
LOC: ANHGOSHLAB 13:51
PROVIDERS: PCP Family Medicine; Visit Provider Internal Medicine Nephrology
DX: E11.22 Type 2 diabetes mellitus with diabetic chronic kidney disease (principal); N18.32 Chronic kidney disease, stage 3b
CPT/HCPCS: 36415; 80069; 82570; 84156

== ENCOUNTER 2025-04-10 13:39 | Outpatient (CLI) | payer OTHER, SELFPAY ==
--- OUTSIDE RECORDS SUMMARY | 2025-04-10 14:06 | XMS_ITS | Clinical Summary ---
Author Organization [facility] Address [address] [place] [address] Care Team Providers Care Loan Secretary Name Role Phone Sonia Stack DO Primary [...] (06/22/2022): Added automatically from request for surgery [id number] Surgical History Surgery Date Site/Laterality Comments WISDOM [...] Tobacco: Never Tobacco Cessation:Counseling Given: Not Answered [facility] Utilities Answer Date Recorded In the [...] often do you attend chur ch or congregational services? Never 08/27/2024 Do you belong to any clubs o r organizations such as sabianism groups, unions, fraternal or athletic groups, or [...] any time in the past 12 m [facility], were you homeless or [...] Comments Blood Pressure 142/99 08/25/2024 11:05 AM GRANITE COUNTERTOP INSTALLER Pulse 103 08/25/2024 11:05 AM GRANITE COUNTERTOP INSTALLER Temperature 36.6 C (97.9 F) 08/25/2024 11:05 AM GRANITE COUNTERTOP INSTALLER Respiratory Rate 18 08/25/2024 11:0 5 AM GRANITE COUNTERTOP INSTALLER Oxygen Saturation 97% 08/25/2024 11: 05 AM GRANITE COUNTERTOP INSTALLER Inhaled Oxygen Concentration - - Weight 304.2 kg (670 lb 11.2 oz) 2024 11:57 AM GRANITE COUNTERTOP INSTALLER Height 182.9 cm (6') 08/24/2024 11:57 AM GRANITE COUNTERTOP INSTALLER Body Mass Index 90.96 08/24/2024 11:57 AM GRANITE COUNTERTOP INSTALLER Plan of Treatment Health Maintenance Due Date [...] Diagnosis Comments EGFR Routine 08/25/2024 12:58 AM GRANITE COUNTERTOP INSTALLER HEMOGLOBIN A1C STAT 08/23/2024 3:56 PM GRANITE COUNTERTOP INSTALLER LIPID PANEL STAT 08/23/2024 3:56 PM GRANITE COUNTERTOP INSTALLER from Last 3 Months or Most Recently Relevant to Health Maintenance Results * (ABNORMAL) eGFR (08/25/2024 12:58 AM GRANITE COUNTERTOP INSTALLER) eGFR 44(L) >=60 mL/min/1. 73 m2 Comment: [...] reviewed 2021. Blood 08/25/2024 12:5 8 AM GRANITE COUNTERTOP INSTALLER 08/25/2024 1:47 AM GRANITE COUNTERTOP INSTALLER Emma Marcial MD LAB BLOOD ORDERABLES Final R esult Performing Organization Address [facility] de Phone Number [facility] Department [place] [address] * Hemoglobin A1c (08/23/2024 3:56 PM GRANITE COUNTERTOP INSTALLER) Pathologist [facility] Hgb A1C 5.0 4.0 - 5.6 % Estimated Average Glucose 97 mg/dL [facility] Comment: The ADA recommends reporting an estimated Average Glucose (eAG) with all Hemoglobin A1c results using the equation derived from a study of 507 normal and diabetic adults. Minority populations were underrepresented and children were not included. (Diabetes Care 2020; 43(S1): S66-S76). The eAG is not equivalent to a fasting glucose. Blood 08/23/2024 3:56 PM GRANITE COUNTERTOP INSTALLER 08/23/2024 4:23 PM GRANITE COUNTERTOP INSTALLER Norman Begum MD LAB BLOOD ORDERABLES F inal Result Performing Organization Address [facility] de Phone Number [facility] Department [place] [address] * (ABNORMAL) Lipid panel (08/23/2024 3:56 PM GRANITE COUNTERTOP INSTALLER) Pathologist [facility] Cholesterol 147 30 - 199 mg/dL Comment: [...] on 2018. Triglycerides 49 <=149 mg/dL [facility] Comment: Interpretive Data Ages < [...] revised on 2024. Non-HDL Cholesterol 108 mg/dL [facility] Comment: Interpretive Data Ages < or [...] last revised on 2018. Chol/HDL ratio 4 [facility] Blood 08/23/2024 3:56 PM GRANITE COUNTERTOP INSTALLER 08/23/2024 4:17 PM GRANITE COUNTERTOP INSTALLER Norman Begum MD LAB BLOOD ORDERABLES F inal Result [facility] Department [place] [address] from Last 3 Months or Most Recently Relevant to Health Maintenance Insurance [facility] Advance Directives For more information, please contact: [phone] * Full Code (Latest Code Status on File) Date Activated Date Inactivated Comments 08/24/2024 7:52 AM 08/25/2024 8:10 PM Care Teams Loan Secretary Relationship Specialty Start Date End Date Sonia Stack DO PCP - General Family Medicine 03/23/22
[2025-04-10 18:46] LABS: Alanine Aminotransferase 23 U/L (6-50); Albumin Level 3.9 g/dL (3.5-5.1); Alkaline Phosphatase 63 U/L (38-126); Anion Gap 9 mmol/L (4-12); Aspartate Amino Transferase 39 U/L (17-59); Bilirubin,Total 0.7 mg/dL (0.2-1.3); Blood Urea Nitrogen 50 mg/dL (9-20); Calcium 9.0 mg/dL (8.4-10.2); Carbon Dioxide 24 mmol/L (22-30); Chloride 109 mmol/L (98-107); Cholesterol 157 mg/dL (0-200); Estimated Glomerular Filt Rate 37; Glucose 109 mg/dL (65-110); HDL Direct 31 mg/dL; Potassium 4.5 mmol/L (3.4-5.0); Sodium 142 mmol/L (137-145); Total Protein 7.6 g/dL (6.3-8.2); Triglycerides 68 mg/dL (<150)
[2025-04-10 19:02] LABS: Free T4 Free Thyroxine 1.35 ng/dL (0.78-2.19); Hemoglobin A1C 5.1 % (<5.7)
[2025-04-10 19:21] LABS: Thyroid Stimulating Hormone 2.270 uIU/mL (0.465-4.680)
== END 2025-04-10 13:40 | disposition home or self-care (01) ==
LOC: ANHGOSHLAB 13:41
PROVIDERS: PCP Family Medicine; Visit Provider Family Medicine
DX: E11.22 Type 2 diabetes mellitus with diabetic chronic kidney disease (principal); R53.83 Other fatigue; I10 Essential (primary) hypertension
CPT/HCPCS: 36415; 80053; 80061; 83036; 84439; 84443